=== PATIENT | female | born 1990 | race American Indian/Alaskan Native ===

== ENCOUNTER 2016-07-25 12:47 | Emergency (ER) | payer MEDICAID ==
[2016-07-25 13:19] VITALS: BMI 37.9
[2016-07-25 13:23] VITALS: RESP 18; TEMP 98.4
[2016-07-25] MEDS ORDERED: DiphenhydrAMINE 50 mg/ml Inj IVP STA (13:43)
[2016-07-25] MEDS ORDERED: Sodium Chloride 0.9% 1,000 ML IV STA (13:43)
--- NOTE | 2016-07-25 13:54 | ED PDOC ---
Arrival/HPI - General Chief Complaint: Headache Time Seen by Provider: 07/25/16 13:26 Historian: Patient - History of Present Illness Narrative History of Present Illness (Text): 07/25/16 13:52 25 year old female whose past medical history includes headaches and meningitis presents to the emergency department with headache and transient numbness in the arms. Patient states the numbness has resolved. Denies fever. Patient states the headache feels like her previous symptoms. Time/Duration: 24 hours Symptom Onset: Gradual Symptom Course: Unchanged Modifying Factors (Text): None Past Medical History - Provider Review Nursing Documentation Reviewed: Yes - Past History Past History: No Previous - Infectious Disease Hx of Infectious Diseases: None - Tetanus Immunization Tetanus Immunization: Unknown - Past Medical History Past Medical History: No Previous - Cardiac Hx Cardiac Disorders: No - Pulmonary Hx Respiratory Disorders: No - Neurological Hx Neurological Disorder: Yes Hx Meningitis: Yes (viral) Hx Migraine: Yes - HEENT Hx HEENT Disorder: Yes Other/Comment: s/p adenoidectomy - Renal Hx Renal Disorder: No - Endocrine/Metabolic Hx Endocrine Disorders: No - Hematological/Oncological Hx Blood Disorders: No Hx Blood Transfusions: No Hx Blood Transfusion Reaction: No - Integumentary Hx Dermatological Disorder: No - Musculoskeletal/Rheumatological Hx Musculoskeletal Disorders: No Hx Falls: No - Gastrointestinal Hx Gastrointestinal Disorders: No Hx Bowel Surgery: No - Genitourinary/Gynecological Hx Genitourinary Disorders: No - Psychiatric Hx Psychophysiologic Disorder: No Hx Emotional Abuse: No Hx Physical Abuse: No Hx Substance Use: No - Past Surgical History Past Surgical History: No Previous - Surgical History Hx Section: Yes Hx Tonsillectomy: Yes Other/Comment: nose surgery 2 weeks ago - Anesthesia Hx Anesthesia: Yes Hx Anesthesia Reactions: No Hx Malignant Hyperthermia: No - Suicidal Assessment Feels Threatened In Home Enviroment: No Family/Social History - Physician Review Nursing Documentation Reviewed: Yes Family/Social History: Unknown Family HX Smoking Status: Never Smoked Hx Alcohol Use: No Hx Substance Use: No Hx Substance Use Treatment: No Allergies/Home Meds Allergies/Adverse Reactions: Allergies ibuprofen Allergy (Verified 02/17/16 17:20) ANAPHYLAXIS Review of Systems - Physician Review All systems were reviewed & negative as marked: Yes - Review of Systems Constitutional: absent: Fevers Respiratory: absent: SOB Cardiovascular: absent: Chest Pain Neurological: Headache, Other (Transient numbness in arms that resolved) Physical Exam Vital Signs Reviewed: Yes Vital Signs Temp Pulse Resp BP Pulse Ox 07/25/16 13:22 98.4 F 112 H 18 135/76 100 Temperature: Afebrile Blood Pressure: Normal Pulse: Tachycardic Respiratory Rate: Normal Appearance: Positive for: Well-Appearing, Non-Toxic, Comfortable Pain Distress: None Mental Status: Positive for: Alert and Oriented X 3 - Systems Exam Head: Present: Atraumatic, Normocephalic Pupils: Present: PERRL Extroacular Muscles: Present: EOMI Conjunctiva: Present: Normal Mouth: Present: Moist Mucous Membranes Neck: Present: Normal Range of Motion, Other (Supple). No: Meningeal Signs Respiratory/Chest: Present: Clear to Auscultation, Good Air Exchange. No: Respiratory Distress, Accessory Muscle Use Cardiovascular: Present: Regular Rate and Rhythm, Normal S1, S2. No: Murmurs Abdomen: Present: Normal Bowel Sounds. No: Tenderness, Distention, Peritoneal Signs Back: Present: Normal Inspection Upper Extremity: Present: Normal Inspection. No: Cyanosis, Edema Lower Extremity: Present: Normal Inspection. No: Edema Neurological: Present: GCS=15, CN II-XII Intact, Speech Normal Skin: Present: Warm, Dry, Normal Color. No: Rashes Psychiatric: Present: Alert, Oriented x 3, Normal Insight, Normal Concentration Medical Decision Making ED Course and Treatment: Impression: 25 year old female whose past medical history includes headaches and meningitis presents to the emergency department with headache and transient numbness in the arms. Differential Diagnosis included but are not limited to: suspect atypical migrain with numbness. no meningmus. neck supple Plan: -- Benadryl, Reglan -- Labs -- Reassess and disposition Prior Visits: Notes and results from previous visits were reviewed. Patient last seen in the ED on 04/18/16 for vomiting and discharged home. Progress Notes: 07/25/16 15:17 pt reassesed: states feels better. neck supple. offered lp to exclude mengitis, however pt declines,requesting to be d/c. advise outpt f/ua nd return precautions - Lab Interpretations Lab Results: 07/25/16 14:00 07/25/16 14:00 Lab Results 07/25/16 14:00: Urine Color Yellow, Urine Appearance Slight-cloudy, Urine pH 5.5 , Ur Specific [place] 1.025, Urine Protein 30 H, Urine Glucose (UA) Negative, Urine Ketones Trace H, Urine Blood Small H, Urine Nitrate Negative, Urine Bilirubin Small H, Urine Urobilinogen 2.0 H, Ur Leukocyte Esterase Moderate H, Urine RBC 0 - 2, Urine WBC 25 - 30, Ur Epithelial Cells 10 - 12, Calcium Oxalate Crystal Mod, Urine Bacteria Mod, Urine HCG, Qual Negative 07/25/16 14:00: Sodium 138, Potassium 3.8, Chloride 99, Carbon Dioxide 27, Anion Gap 16, BUN 10, Creatinine 0.4 L, Est GFR ( Amer) > 60, Est GFR ( Non-Af Amer) > 60, Random Glucose 96, Calcium 10.4, Total Bilirubin 0.7, AST 41 H, ALT 45, Alkaline Phosphatase 99, Total Protein 7.7, Albumin 4.0, Globulin 3.7 , Albumin/Globulin Ratio 1.1 07/25/16 14:00: PT 11.4, INR 1.06, APTT 30.3 07/25/16 14:00: WBC 5.6 D, RBC 4.92, Hgb 11.7 L, Hct 35.6 L, MCV 72.4 L, MCH 23.8 L, MCHC 32.9, RDW 12.5, Plt Count 250, MPV 10.1, Gran % 61.3, Lymph % (Auto ) 25.7, [place] % (Auto) 12.1 H, Eos % (Auto) 0.5 L, Baso % (Auto) 0.4, Gran # 3.43 , Lymph # 1.4, [place] # 0.7 H, Eos # 0.0, Baso # 0.02 - Medication Orders Current Medication Orders: Ceftriaxone Sodium (Rocephin 1 Gram Ivpb) 1 gm in 100 mls @ 200 mls/hr IVPB STAT STA PRN Reason: Protocol Stop: 07/25/16 15:31 Discontinued Medications Diphenhydramine HCl (Benadryl) 25 mg IVP STAT STA Stop: 07/25/16 13:44 Last Admin: 07/25/16 14:25 Dose: 25 mg Sodium Chloride (Sodium Chloride 0.9%) 1,000 mls @ 999 mls/hr IV .Q1H1M STA Stop: 06/19/17 14:43 Last Admin: 07/25/16 14:26 Dose: 999 mls/hr Metoclopramide HCl (Reglan) 10 mg IVP STAT STA Stop: 07/25/16 13:44 Last Admin: 07/25/16 14:26 Dose: 10 mg - Oksana Statement The provider has reviewed the documentation as recorded by the Oksana Richardson Provider Scribe Attestation: All medical record entries made by the Oksana were at my direction and personally dictated by me. I have reviewed the chart and agree that the record accurately reflects my personal performance of the history, physical exam, medical decision making, and the department course for this patient. I have also personally directed, reviewed, and agree with the discharge instructions and disposition. Disposition/Present on Arrival - Present on Arrival Any Indicators Present on Arrival: No History of DVT/PE: No History of Uncontrolled Diabetes: No Urinary Catheter: No History of Decub. Ulcer: No History Surgical Site Infection Following: None - Disposition Have Diagnosis and Disposition been Completed?: Yes Diagnosis: Headache Disposition: HOME/ ROUTINE Disposition Time: 15:18 Condition: STABLE Discharge Instructions (ExitCare): Acute Headache (ED) Additional Instructions: please follow up with your doctor/specialist. return to er with worsening symptoms or concenrs Prescriptions: Acetaminophen/Butalbital/Caf [Fioricet] 1 tab PO Q8 PRN #20 PRN Reason: Headache
[2016-07-25 14:21] LABS: PH,URINE 5.5 (4.7-8.0); URINE BILIRUBIN SMALL (NEGATIVE); URINE BLOOD SMALL (NEGATIVE); URINE GLUCOSE (UA) NEGATIVE (NEGATIVE); URINE KETONE TRACE mg/dL (NEGATIVE); URINE LEUKOCYTE ESTERASE MODERATE Leu/uL (NEGATIVE); URINE PROTEIN 30 mg/dL (<30 mg/dL)
[2016-07-25 14:22] LABS: URINE APPEARANCE SLIGHT-CLOUDY (CLEAR); URINE COLOR YELLOW (YELLOW)
[2016-07-25 14:35] LABS: URINE RBC 0 - 2 /hpf (0-2); URINE WBC 25 - 30 /hpf (0-6)
[2016-07-25 14:37] LABS: URINE CALCIUM OXALATE CRYSTALS MOD /hpf
[2016-07-25 14:38] LABS: URINE BACTERIA MOD (NEG)
[2016-07-25 14:46] LABS: ADD MANUAL DIFF? NO
[2016-07-25 14:50] LABS: BASO # 0.02 K/mm3 (0.0-2.0); BASO % 0.4 % (0.0-3.0); EOS % 0.5 % (1.5-5.0); GRAN # 3.43 (1.4-6.5); GRAN % 61.3 % (50.0-68.0); HEMATOCRIT 35.6 % (36.0-48.0); LYMPH # 1.4 (1.2-3.4); LYMPH % 25.7 % (22.0-35.0); MEAN CELL VOLUME 72.4 fL (80.0-105.0); MEAN CORPUSCULAR HEMOGLOBIN 23.8 pg (25.0-35.0); MEAN CORPUSCULAR HGB CONC 32.9 g/dl (31.0-37.0); MEAN PLATELET VOLUME 10.1 fl (7.0-11.0); MONO # 0.7 (0.1-0.6); MONO % 12.1 % (1.0-6.0); PLATELET COUNT 250 10^3/uL (120.0-450.0); RED CELL DISTRIBUTION WIDTH 12.5 % (11.5-14.5); WHITE BLOOD COUNT 5.6 10^3/ul (4.5-11.0)
[2016-07-25 15:00] LABS: ALB/GLOB RATIO 1.1 (1.1-1.8); ALKALINE PHOSPHATASE 99 U/L (38-133); ALT/SGPT 45 U/L (7-56); AST/SGOT 41 U/L (15-39); BILIRUBIN,TOTAL 0.7 mg/dL (0.2-1.3); BLOOD UREA NITROGEN 10 mg/dL (7-21); CALCIUM 10.4 mg/dL (8.4-10.5); CARBON DIOXIDE 27 mmol/L (21-33); CHLORIDE 99 mmol/L (98-107); GFR AFRICAN-AMERICAN > 60; GLUCOSE,RANDOM 96 mg/dL (70-110); INR 1.06 (0.93-1.08); PARTIAL THROMBOPLASTIN TIME 30.3 Seconds (23.7-30.8); POTASSIUM 3.8 mmol/L (3.6-5.0); SODIUM 138 mmol/L (132-148); TOTAL PROTEIN 7.7 g/dL (5.8-8.3)
[2016-07-25] MEDS ORDERED: cefTRIAXone 1 gm 1 GM/100 ML BAG IVPB STA (15:02)
[2016-07-25 15:29] VITALS: BP 134/80; PULSE 89; O2SAT 98
== END 2016-07-25 15:53 | disposition home or self-care (01) ==
LOC: ED 12:47
DX: R51 Headache (principal); G03.9 Meningitis, unspecified
CPT/HCPCS: 80053; 81001; 84703; 85025; 85610; 85730; 96365; 96375; 99285; J0696; J1200; J2765; J7040

== ENCOUNTER 2016-11-21 08:56 | Inpatient (IN) | payer MEDICAID ==
[2016-11-21] MEDS ORDERED: Sodium Chloride 0.9% 1,000 ML IV STA (09:44)
[2016-11-21] MEDS ORDERED: DiphenhydrAMINE 50 mg/ml Inj IVP STA (09:44)
--- NOTE | 2016-11-21 09:45 | ED PDOC ---
Arrival/HPI - General Chief Complaint: Headache Time Seen by Provider: 11/21/16 09:16 Historian: Patient - History of Present Illness Narrative History of Present Illness (Text): 11/21/16 09:30 Niurka Quach is a 26 year old female, whose past medical history includes hyperthyroidism and meningitis, who presents to the emergency department complaining of headache, neck pain, and subjective fever. She notes taking three Tylenol's last night, but there was no significant relief. Additionally, patient complains of light sensitivity. Sx are similar to prior episodes of viral meningitis. PMD: Dr. Scruggs Time/Duration: 24 hours Symptom Onset: Gradual Symptom Course: Unchanged Quality: Other (stiffness) Associated Symptoms (Text): headache, mild cough, fever, neck and back stiffness Past Medical History - Provider Review Nursing Documentation Reviewed: Yes - Past History Past History: No Previous - Infectious Disease Hx of Infectious Diseases: None - Tetanus Immunization Tetanus Immunization: Unknown - Past Medical History Past Medical History: No Previous - Cardiac Hx Cardiac Disorders: No - Pulmonary Hx Respiratory Disorders: No - Neurological Hx Neurological Disorder: Yes Hx Meningitis: Yes (viral) Hx Migraine: Yes - HEENT Hx HEENT Disorder: Yes Other/Comment: s/p adenoidectomy - Renal Hx Renal Disorder: No - Endocrine/Metabolic Hx Endocrine Disorders: No Other/Comment: hyperactive thyroid ? - Hematological/Oncological Hx Blood Disorders: No Hx Blood Transfusions: No Hx Blood Transfusion Reaction: No - Integumentary Hx Dermatological Disorder: No - Musculoskeletal/Rheumatological Hx Musculoskeletal Disorders: No Hx Falls: No - Gastrointestinal Hx Gastrointestinal Disorders: No Hx Bowel Surgery: No - Genitourinary/Gynecological Hx Genitourinary Disorders: No - Psychiatric Hx Psychophysiologic Disorder: No Hx Emotional Abuse: No Hx Physical Abuse: No Hx Substance Use: No - Past Surgical History Past Surgical History: No Previous - Surgical History Hx Section: Yes (x2) Hx Tonsillectomy: Yes Other/Comment: nose surgery 2 weeks ago - Anesthesia Hx Anesthesia: Yes Hx Anesthesia Reactions: No Hx Malignant Hyperthermia: No - Suicidal Assessment Feels Threatened In Home Enviroment: No Family/Social History - Physician Review Nursing Documentation Reviewed: Yes Family/Social History: Other (Non-contributory ) Smoking Status: Never Smoked Hx Alcohol Use: No Hx Substance Use: No Hx Substance Use Treatment: No Allergies/Home Meds Allergies/Adverse Reactions: Allergies ibuprofen Allergy (Verified 11/21/16 16:25) ANAPHYLAXIS Home Medications: Home Meds Medication Instructions Recorded Confirmed Unobtainable 11/21/16 11/21/16 Review of Systems - Review of Systems Constitutional: Fevers Eyes: absent: Vision Changes Respiratory: Cough (mild). absent: SOB Cardiovascular: absent: Chest Pain Gastrointestinal: absent: Abdominal Pain, Diarrhea, Nausea, Vomiting Genitourinary Female: absent: Dysuria Musculoskeletal: Back Pain (stiffness), Neck Pain (stiffness) Neurological: Headache. absent: Dizziness, Focal Weakness Physical Exam Vital Signs Reviewed: Yes Vital Signs Temp Pulse Resp BP Pulse Ox 11/21/16 16:00 98.5 F 100 H 17 112/70 100 11/21/16 14:00 98.6 F 100 H 18 110/80 100 11/21/16 12:00 98.5 F 104 H 18 109/50 L 100 11/21/16 10:30 99.9 F H 92 H 16 112/63 98 11/21/16 09:20 98.5 F 102 H 18 116/75 100 Temperature: Afebrile Blood Pressure: Normal Pulse: Tachycardic Respiratory Rate: Normal Appearance: Positive for: Well-Appearing, Non-Toxic, Comfortable Pain Distress: None Mental Status: Positive for: Alert and Oriented X 3 - Systems Exam Head: Present: Atraumatic, Normocephalic Pupils: Present: PERRL Extroacular Muscles: Present: EOMI Conjunctiva: Present: Normal Mouth: Present: Moist Mucous Membranes Neck: Present: Normal Range of Motion, Other (neck is supple and has NROM. Patient reports pain with motion) Respiratory/Chest: Present: Clear to Auscultation, Good Air Exchange. No: Respiratory Distress, Accessory Muscle Use Cardiovascular: Present: Regular Rate and Rhythm, Normal S1, S2. No: Murmurs Lower Extremity: Present: Normal Inspection, Normal ROM. No: Edema, Tenderness , Swelling Neurological: Present: GCS=15, CN II-XII Intact, Speech Normal Skin: Present: Warm, Dry, Normal Color. No: Rashes Medical Decision Making - Lab Interpretations Lab Results: 11/21/16 10:24 11/21/16 10:24 Lab Results 11/21/16 13:10: CSF Glucose 50, CSF Total Protein 57.0 11/21/16 13:10: Fluid Type Spinal fluid, CSF Volume 2 H, CSF Appearance Clear/ colorless, CSF WBC 253.0 H, CSF RBC 6.0 H, CSF Total Cell Counted 100 H, CSF Neutrophils 15 H, CSF Lymphocytes 82.0 H, CSF Monos/Macrophages 0, CSF Comment TEST NOT PERFORMED 11/21/16 10:24: Sodium 140, Chloride 106, Potassium 4.1, Carbon Dioxide 24, Anion Gap 14, BUN 12, Creatinine 0.4 L, Est GFR ( Amer) > 60, Est GFR ( Non-Af Amer) > 60, Random Glucose 101, Calcium 9.5, Total Bilirubin 0.6, AST 25 , ALT 36, Alkaline Phosphatase 117, Total Protein 7.3, Albumin 4.1, Globulin 3.2 , Albumin/Globulin Ratio 1.3 11/21/16 10:24: Urine Color Yellow, Urine Appearance Sl cloudy, Urine pH 7.0, Ur Specific [place] 1.015, Urine Protein Negative, Urine Glucose (UA) Negative, Urine Ketones Negative, Urine Blood Trace-intact H, Urine Nitrate Negative, Urine Bilirubin Negative, Urine Urobilinogen 0.2, Ur Leukocyte Esterase Large H , Urine RBC 0 - 2, Urine WBC 15 - 20, Ur Epithelial Cells 6 - 8, Urine Bacteria Few, Urine Other Trichomonas, Urine HCG, Qual Negative 11/21/16 10:24: WBC 7.6 D, RBC 4.99, Hgb 12.1, Hct 37.3, MCV 74.7 L, MCH 24.2 L , MCHC 32.4, RDW 12.6, Plt Count 249, MPV 9.1, Gran % 57.7, Lymph % (Auto) 30.8 , [place] % (Auto) 6.8 H, Eos % (Auto) 4.3, Baso % (Auto) 0.4, Gran # 4.38, Lymph # 2.3, [place] # 0.5, Eos # 0.3, Baso # 0.03 11/21/16 10:24: pO2 39, VBG pH 7.34, VBG pCO2 51.0, VBG HCO3 27.5, VBG Total CO2 29.1 H, VBG O2 Sat (Calc) 80.0 H, VBG Base Excess 0.9, VBG Potassium 4.0, Sodium 137.0, Chloride 106.0, Glucose 102, Lactate 1.0, FiO2 21.0, Venous Blood Potassium 4.0 I have reviewed the lab results: Yes - RAD Interpretation Radiology Orders: 11/21/16 09:43 HEAD W/O CONTRAST [CT] Stat - Medication Orders Current Medication Orders: Acetaminophen (Tylenol 325mg Tab) 650 mg PO Q6H PRN PRN Reason: Fever >100.4 F Acyclovir 330 mg/ Sodium (Chloride) 100 mls @ 100 mls/hr IV Q8 MARLON PRN Reason: Protocol Sodium Chloride (Sodium Chloride 0.9%) 1,000 mls @ 100 mls/hr IV .Q10H MARLON Last Admin: 11/21/16 15:10 Dose: 100 mls/hr eMAR Start Stop Document 11/21/16 15:10 AB (Rec: 11/21/16 15:10 [id number]) Intravenous Solution Start Date 11/21/16 Start Time 15:10 End Date 11/21/16 Ceftriaxone Sodium (Rocephin 1 Gram Ivpb) 1 gm in 100 mls @ 100 mls/hr IVPB DAILY MARLON PRN Reason: Protocol Methimazole (Tapazole) 20 mg PO BID [facility] Last Admin: 11/21/16 17:39 Dose: 20 mg Metronidazole (Flagyl) 500 mg PO Q12H MARLON PRN Reason: Protocol Pantoprazole Sodium (Protonix Inj) 40 mg IVP DAILY [facility] Last Admin: 11/21/16 15:09 Dose: 40 mg IVP Administration Document 11/21/16 15:09 AB (Rec: 11/21/16 15:10 [id number]) Charges for Administration # of IVP Administrations 1 Discontinued Medications Diphenhydramine HCl (Benadryl) 25 mg IVP STAT STA Stop: 11/21/16 09:45 Last Admin: 11/21/16 10:00 Dose: 25 mg IVP Administration Document 11/21/16 10:00 REBEKA (Rec: 11/21/16 10:47 REBEKA [id number]) Charges for Administration # of IVP Administrations 1 Sodium Chloride (Sodium Chloride 0.9%) 1,000 mls @ 999 mls/hr IV .Q1H1M STA Stop: 11/21/16 10:44 Last Admin: 11/21/16 10:00 Dose: 999 mls/hr eMAR Start Stop Document 11/21/16 10:00 REBEKA (Rec: 11/21/16 10:48 REBEKA [id number]) Intravenous Solution Start Date 11/21/16 Start Time 10:00 End Date 11/21/16 End time 11:00 Total Infusion Time 60 Ceftriaxone Sodium (Rocephin 2 Gm Ivpb) 2 gm in 100 mls @ 100 mls/hr IVPB STAT STA PRN Reason: Protocol Stop: 11/21/16 10:48 Last Admin: 11/21/16 11:30 Dose: 100 mls/hr eMAR Start Stop Document 11/21/16 11:30 REBEKA (Rec: 11/21/16 11:31 [id number] Intravenous Solution Start Date 11/21/16 Start Time 11:30 End Date 11/21/16 End time 12:30 Total Infusion Time 60 Vancomycin HCl 1.5 gm/ Sodium (Chloride) 250 mls @ 167 mls/hr IVPB ONCE ONE Stop: 11/21/16 11:29 Last Admin: 11/21/16 14:54 Dose: 167 mls/hr eMAR Start Stop Document 11/21/16 14:54 AB (Rec: 11/21/16 14:56 AB [id number]) Intravenous Solution Start Date 11/21/16 Start Time 13:00 End Date 11/21/16 Acyclovir 500 mg/ Sodium (Chloride) 100 mls @ 100 mls/hr IV STAT STA PRN Reason: Protocol Stop: 11/21/16 10:55 Last Admin: 11/21/16 10:28 Dose: 100 mls/hr eMAR Start Stop Document 11/21/16 10:28 NH (Rec: 11/21/16 10:29 NH [id number]) Intravenous Solution Start Date 11/21/16 Start Time 10:29 End Date 11/21/16 End time 11:29 Total Infusion Time 60 Lidocaine HCl (Lidocaine 1% (20ml)) 20 ml IJ STAT STA Stop: 11/21/16 10:29 Metoclopramide HCl (Reglan) 10 mg IVP STAT STA Stop: 11/21/16 09:45 Last Admin: 11/21/16 10:02 Dose: 10 mg IVP Administration Document 11/21/16 10:02 REBEKA (Rec: 11/21/16 10:47 REBEKA [email or web address]) Charges for Administration # of IVP Administrations 1 Metronidazole (Flagyl) 500 mg PO STAT STA PRN Reason: Protocol Stop: 11/21/16 13:58 Last Admin: 11/21/16 15:10 Dose: 500 mg - Scribe Statement The provider has reviewed the documentation as recorded by the Hienibe Yelena Abebe Provider Scribe Attestation: All medical record entries made by the Scribe were at my direction and personally dictated by me. I have reviewed the chart and agree that the record accurately reflects my personal performance of the history, physical exam, medical decision making, and the department course for this patient. I have also personally directed, reviewed, and agree with the discharge instructions and disposition. Disposition/Present on Arrival - Present on Arrival Any Indicators Present on Arrival: No History of DVT/PE: No History of Uncontrolled Diabetes: No Urinary Catheter: No History of Decub. Ulcer: No History Surgical Site Infection Following: None - Disposition Have Diagnosis and Disposition been Completed?: Yes Diagnosis: Viral meningitis Disposition: HOSPITALIZED Disposition Time: 13:59 Condition: STABLE - Lumbar Puncture Procedure LP Procedure: Discussed Procedure W/Pt, Consent Form Completed, Head CT Completed, Use Of Sterile Technique, Injection Site Prepped W/Betadine Position for Procedure: Sitting Injection Location: L 3-4 (pt tolerated procedure well without immediate complication)
[2016-11-21] MEDS ORDERED: cefTRIAXone 2 GM IN NS 2 GM/100 ML BAG IVPB STA (09:49)
[2016-11-21] MEDS ORDERED: Vancomycin 500 mg Inj IVPB STA (09:49)
[2016-11-21] MEDS ORDERED: Acyclovir 500 MG in Sodium Chloride 0.9% 100 ML IV STA (09:56)
[2016-11-21] MEDS ORDERED: Lidocaine 1% Inj (20ml) IJ STA (10:28)
[2016-11-21 10:30] LABS: VENOUS BLOOD GAS BASE EXCESS 0.9 mmol/L (0.0-2.0); VENOUS BLOOD PH 7.34 (7.32-7.43)
[2016-11-21 10:31] LABS: URINE BILIRUBIN NEGATIVE (NEGATIVE); URINE BLOOD TRACE-INTACT (NEGATIVE); URINE GLUCOSE (UA) NEGATIVE (NEGATIVE); URINE KETONE NEGATIVE (NEGATIVE); URINE LEUKOCYTE ESTERASE LARGE Leu/uL (NEGATIVE); URINE PROTEIN NEGATIVE mg/dL (<30 mg/dL); URINE UROBILINOGEN 0.2 E.U./dL (<1 E.U./dL)
[2016-11-21 10:32] LABS: BASO # 0.03 K/mm3 (0.0-2.0); BASO % 0.4 % (0.0-3.0); EOS # 0.3 (0.0-0.7); EOS % 4.3 % (1.5-5.0); GRAN # 4.38 (1.4-6.5); GRAN % 57.7 % (50.0-68.0); HEMATOCRIT 37.3 % (36.0-48.0); LYMPH # 2.3 (1.2-3.4); LYMPH % 30.8 % (22.0-35.0); MEAN CELL VOLUME 74.7 fl (80.0-105.0); MEAN CORPUSCULAR HEMOGLOBIN 24.2 pg (25.0-35.0); MEAN CORPUSCULAR HGB CONC 32.4 g/dl (31.0-37.0); MEAN PLATELET VOLUME 9.1 fl (7.0-11.0); MONO # 0.5 (0.1-0.6); MONO % 6.8 % (1.0-6.0); RED CELL DISTRIBUTION WIDTH 12.6 % (11.5-14.5); URINE COLOR YELLOW (YELLOW); WHITE BLOOD COUNT 7.6 10^3/ul (4.5-11.0)
[2016-11-21 10:37] LABS: URINE APPEARANCE SL CLOUDY (CLEAR)
[2016-11-21 10:39] LABS: URINE BACTERIA FEW (NEG); URINE RBC 0 - 2 /hpf (0-2); URINE WBC 15 - 20 /hpf (0-6)
[2016-11-21 10:40] LABS: ALB/GLOB RATIO 1.3 (1.1-1.8); ALKALINE PHOSPHATASE 117 U/L (38-126); ALT/SGPT 36 U/L (7-56); AST/SGOT 25 U/L (14-36); BILIRUBIN,TOTAL 0.6 mg/dL (0.2-1.3); BLOOD UREA NITROGEN 12 mg/dL (7-21); CALCIUM 9.5 mg/dL (8.4-10.5); CARBON DIOXIDE 24 mmol/L (21-33); CHLORIDE 106 mmol/L (98-107); GFR AFRICAN-AMERICAN > 60; GLUCOSE,RANDOM 101 mg/dL (70-110); POTASSIUM 4.1 mmol/L (3.6-5.0); SODIUM 140 mmol/L (132-148); TOTAL PROTEIN 7.3 g/dL (5.8-8.3)
--- NOTE | 2016-11-21 12:23 | CT ---
PROCEDURE: CT HEAD WITHOUT CONTRAST. HISTORY: headache COMPARISON: 02/17/2016 TECHNIQUE: Axial computed tomography images were obtained through the head/brain without intravenous contrast. Radiation dose: Total exam DLP = 747.90 mGy-cm. This CT exam was performed using one or more of the following dose reduction techniques: Automated exposure control, adjustment of the mA and/or kV according to patient size, and/or use of iterative reconstruction technique. FINDINGS: HEMORRHAGE: No intracranial hemorrhage. BRAIN: No mass effect or edema. No atrophy or chronic microvascular ischemic changes. VENTRICLES: Unremarkable. No hydrocephalus. CALVARIUM: Unremarkable. PARANASAL SINUSES: Mild chronic pansinusitis MASTOID AIR CELLS: Unremarkable as visualized. No inflammatory changes. OTHER FINDINGS: None. IMPRESSION: No intracranial mass, hemorrhage or evidence of acute infarct. Mild chronic pansinusitis.
[2016-11-21 13:13] LABS: FLUID TYPE SPINAL FLUID
[2016-11-21 14:00] LABS: CSF NEUTROPHIL 15 % (0-0); CSF TOTAL COUNT 100 (0-0)
--- NOTE | 2016-11-21 14:43 | CP.PCM.HP ---
<Kaur Pike - Last Filed: 11/21/16 15:22> History of Present Illness - History of Present Illness History of Present Illness: Patient is a 26 year old female with past medical history of aspetic meningitis and hyperthyroidism presents to the ED for headache and neck stiffness that started last night. Also reports having subjective fevers, mild cough and photophobia. Patient states that she took 3 tylenol's with no relief. Also states that she tried eating food, however symptoms did not resolve. Patient was admitted in February 2016 for aseptic meningitis and was discharged on Acyclovir. Reports that she finished the course of antivirals but never followed up with a Neurologist due to insurance issues. Currently patient reports headaches have improved. Denies fevers, chills, photophobia, changes in vision, nausea, vomiting, cp, palpitations, sob, abdominal pain, urinary symptoms, changes in bowel habits. ED Course: Acyclovir 500mg x 1, Rocephin 2gm x 1, Vanco 1.5gm x 1, Flagyl 500mg PO, Reglan 10mg, Benadryl PMD: Dr Tanja Scruggs Allergies: Ibuprofen Medical History: Hyperthyroidism, Meningitis Medications: Methimazole 10mg 2 tabs BID Surgical Hx: C/S x 2, Adenoidectomy Social Hx: Denies alcohol, tobacco, drug use Family Hx: Grandmother - Heart disease Present on Admission - Present on Admission Any Indicators Present on Admission: No Review of Systems - Constitutional Constitutional: Anorexia, Headache. absent: Chills, Fever - EENT Eyes: absent: Blurred Vision, Change in Vision, Photophobia Ears: absent: Dizziness - Cardiovascular Cardiovascular: absent: Chest Pain, Dyspnea, Lightheadedness - Respiratory Respiratory: absent: Cough, Dyspnea, Dyspnea on Exertion, Wheezing - Gastrointestinal Gastrointestinal: absent: Abdominal Pain, Bloating, Constipation, Diarrhea, Nausea, Vomiting - Genitourinary Genitourinary: absent: Dysuria - Musculoskeletal Musculoskeletal: absent: Back Pain, Numbness, Stiffness, Tingling - Neurological Neurological: Headaches. absent: Confusion, Dizziness - Psychiatric Psychiatric: absent: Anxiety, Depression Past Patient History - Infectious Disease Hx of Infectious Diseases: None - Tetanus Immunizations Tetanus Immunization: Unknown - Past Social History Smoking Status: Never Smoked - CARDIAC Hx Cardiac Disorders: No - PULMONARY Hx Respiratory Disorders: No - NEUROLOGICAL Hx Neurological Disorder: Yes Hx Meningitis: Yes (viral) Hx Migraine: Yes - HEENT Hx HEENT Problems: Yes Other/Comment: s/p adenoidectomy - RENAL Hx Chronic Kidney Disease: No - ENDOCRINE/METABOLIC Hx Endocrine Disorders: No Other/Comment: hyperactive thyroid ? - HEMATOLOGICAL/ONCOLOGICAL Hx Blood Disorders: No Hx Blood Transfusions: No Hx Blood Transfusion Reaction: No - INTEGUMENTARY Hx Dermatological Problems: No - MUSCULOSKELETAL/RHEUMATOLOGICAL Hx Musculoskeletal Disorders: No Hx Falls: No - GASTROINTESTINAL Hx Gastrointestinal Disorders: No Hx Bowel Surgery: No - GENITOURINARY/GYNECOLOGICAL Hx Genitourinary Disorders: No - PSYCHIATRIC Hx Psychophysiologic Disorder: No Hx Emotional Abuse: No Hx Physical Abuse: No Hx Substance Use: No - SURGICAL HISTORY Hx Section: Yes (x2) Hx Tonsillectomy: Yes Other/Comment: nose surgery 2 weeks ago - ANESTHESIA Hx Anesthesia: Yes Hx Anesthesia Reactions: No Hx Malignant Hyperthermia: No Meds Allergies/Adverse Reactions: Allergies Allergy/AdvReac Type Severity Reaction Status Date / Time ibuprofen Allergy ANAPHYLAXIS Verified 11/21/16 16:25 Physical Exam - Constitutional Appears: Well, No Acute Distress - Head Exam Head Exam: ATRAUMATIC, NORMAL INSPECTION - Eye Exam Eye Exam: EOMI, Normal appearance Pupil Exam: PERRL - ENT Exam ENT Exam: Mucous Membranes Moist - Neck Exam Neck exam: Positive for: Full Rom Additional comments: No Brudzinski's sign, No Kernig's sign - Respiratory Exam Respiratory Exam: Clear to Auscultation Bilateral, NORMAL BREATHING PATTERN. absent: Rales, Rhonchi, Wheezes - Cardiovascular Exam Cardiovascular Exam: REGULAR RHYTHM, +S1, +S2 - GI/Abdominal Exam GI & Abdominal Exam: Normal Bowel Sounds, Soft. absent: Guarding, Rebound, Rigid, Tenderness - Extremities Exam Extremities exam: Positive for: full ROM, normal inspection. Negative for: calf tenderness - Back Exam Back exam: NORMAL INSPECTION - Neurological Exam Neurological exam: Alert, Normal Gait, Oriented x3 - Psychiatric Exam Psychiatric exam: Normal Affect, Normal Mood - Skin Skin Exam: Dry, Normal Color, Warm Results - Vital Signs Recent Vital Signs: Last Vital Signs Temp 99.9 F H 11/21/16 10:30 Pulse 92 H 11/21/16 10:30 Resp 16 11/21/16 10:30 BP 112/63 11/21/16 10:30 Pulse Ox 98 11/21/16 10:30 - Labs Result Diagrams: 11/21/16 10:24 11/21/16 10:24 Assessment & Plan - Assessment and Plan (Free Text) Assessment: 26 year old female with past medical history of aseptic meningitis and hyperthyroidism presents with headache and neck stiffness since last night. Plan: 1. Recurrent Aseptic Meningitis - Currently Afebrile - Droplet precautions - CT head showing mild chronic pansinusitis - S/P lumbar puncture (clear/colorless, WBC 253, Lymphocytes 82, Glucose 50) - F/U CSF analysis, blood cx - Headache resolved upon examination, no meningeal signs - Acyclovir 330mg Q8H IV - Tylenol prn headache - ID on consult, f/u recommendations - Neurology on consult, f/u recommendations 2. Urinary Tract Infection - UA showing large leuk esterase, +WBCs - Continue Rocephin 1 gm daily - F/U urine cultures 3. Hyperthyroidism - Continue Methimazole 20mg BID 4. Metrorrhagia - LMP 06/2016 - Urine bhcg negative - Not currently using oral/barrier contraception - Urine positive for trichomonas - Continue Flagyl 500mg PO Q12 x 7 days GI/DVT ppx - Protonix 40mg IV - SCDs Plan d/w attending, Dr Valencia <Jimmie Valencia - Last Filed: 11/22/16 14:36> Results - Vital Signs Recent Vital Signs: Last Vital Signs Temp 97.5 F L 11/22/16 08:15 Pulse 74 11/22/16 08:15 Resp 20 11/22/16 08:15 BP 126/74 11/22/16 08:15 Pulse Ox 99 11/22/16 08:15 - Labs Result Diagrams: 11/22/16 07:40 11/22/16 07:27 Labs: Laboratory Results - last 24 hr 11/22/16 11/22/16 07:27 07:40 WBC 5.6 D RBC 4.74 Hgb 11.3 L Hct 35.1 L MCV 74.1 L MCH 23.8 L MCHC 32.2 RDW 12.5 Plt Count 230 MPV 9.3 Gran % 39.3 L Lymph % (Auto) 44.2 H Beauregard % (Auto) 9.2 H Eos % (Auto) 6.8 H Baso % (Auto) 0.5 Gran # 2.18 Lymph # 2.5 Beauregard # 0.5 Eos # 0.4 Baso # 0.03 Sodium 141 Potassium 4.1 Chloride 107 Carbon Dioxide 25 Anion Gap 13 BUN 10 Creatinine 0.4 L Est GFR ( Amer) > 60 Est GFR (Non-Af Amer) > 60 Random Glucose 93 Calcium 9.5 Phosphorus 5.7 H Magnesium 1.7 Total Bilirubin 0.6 AST 26 ALT 44 Alkaline Phosphatase 104 Total Protein 6.5 Albumin 3.6 Globulin 2.9 Albumin/Globulin Ratio 1.3 Attending/Attestation - Attestation I have personally seen and examined this patient.: Yes I have fully participated in the care of the patient.: Yes I have reviewed all pertinent clinical information: Yes Notes (Text): 11/22/16 14:34 attending note; Patient seen and examined in ER. Patient is a 26-year-old female with a past medical history of recurrent aseptic meningitis is admitted with headache. Status post LP in the ER. started on IV acyclovir. Currently feeling better. ID/neuro evaluation requested. Follow-up culture results. Upon discharge the patient will follow-up with PMD dr. Scruggs. 11/22/16 14:36
[2016-11-21] MEDS: Sodium Chloride 0.9% 1,000 ML IV SCH (15:10)
[2016-11-21 19:08] VITALS: BMI 36.1
[2016-11-21] MEDS ORDERED: Pneumococcal 23-Valent Vaccine IM ONE (19:09)
[2016-11-21] MEDS ORDERED: Influenza Vaccine 60 mcg/0.5 mL SYR (4YR UP) IM ONE (19:09)
[2016-11-21] MEDS: SODIUM CHLORIDE 0.9% IV SCH (22:14)
[2016-11-21] MEDS: ACYCLOVIR IV SCH (22:14)
[2016-11-22] MEDS: Sodium Chloride 0.9% 1,000 ML IV SCH (05:58)
[2016-11-22] MEDS: ACYCLOVIR IV SCH ×3 (05:59→22:30)
[2016-11-22] MEDS: SODIUM CHLORIDE 0.9% IV SCH ×3 (05:59→22:30)
[2016-11-22 07:45] LABS: ALB/GLOB RATIO 1.3 (1.1-1.8); ALKALINE PHOSPHATASE 104 U/L (38-126); ALT/SGPT 44 U/L (7-56); AST/SGOT 26 U/L (14-36); BILIRUBIN,TOTAL 0.6 mg/dL (0.2-1.3); BLOOD UREA NITROGEN 10 mg/dL (7-21); CALCIUM 9.5 mg/dL (8.4-10.5); CARBON DIOXIDE 25 mmol/L (21-33); CHLORIDE 107 mmol/L (95-110); GFR AFRICAN-AMERICAN > 60; GLUCOSE,RANDOM 93 mg/dL (70-110); MAGNESIUM 1.7 mg/dL (1.7-2.2); PHOSPHOROUS 5.7 mg/dL (2.5-4.5); POTASSIUM 4.1 mmol/L (3.6-5.0); SODIUM 141 mmol/L (132-148); TOTAL PROTEIN 6.5 g/dL (5.8-8.3)
[2016-11-22 08:32] LABS: BASO # 0.03 K/mm3 (0.0-2.0); BASO % 0.5 % (0.0-3.0); EOS # 0.4 (0.0-0.7); EOS % 6.8 % (1.5-5.0); GRAN # 2.18 (1.4-6.5); GRAN % 39.3 % (50.0-68.0); HEMATOCRIT 35.1 % (36.0-48.0); LYMPH # 2.5 (1.2-3.4); LYMPH % 44.2 % (22.0-35.0); MEAN CELL VOLUME 74.1 fl (80.0-105.0); MEAN CORPUSCULAR HEMOGLOBIN 23.8 pg (25.0-35.0); MEAN CORPUSCULAR HGB CONC 32.2 g/dl (31.0-37.0); MEAN PLATELET VOLUME 9.3 fl (7.0-11.0); MONO # 0.5 (0.1-0.6); MONO % 9.2 % (1.0-6.0); RED CELL DISTRIBUTION WIDTH 12.5 % (11.5-14.5); WHITE BLOOD COUNT 5.6 10^3/ul (4.5-11.0)
[2016-11-22] MEDS: cefTRIAXone 1 gm 1 GM/100 ML BAG IVPB SCH (10:01)
[2016-11-22] MEDS ORDERED: Gadodiamide 287 MG/ML VIAL (20ML) IV ONE (12:35)
--- NOTE | 2016-11-22 13:11 | CON ---
DATE: 11/22/2016 NEUROLOGY CONSULTATION REASON FOR CONSULTATION: Headaches and meningitis. HISTORY OF PRESENT ILLNESS: The patient is a 26-year-old female, who has been asked for evaluation of headache and meningitis. The patient has been complaining of headaches over the last couple of days. She reported having fever and mild cough, was also experiencing photophobia. She apparently took Tylenol with no relief. She was also experiencing some stiffness in the neck and decided to come to the emergency room. She had aseptic meningitis in 2017 in the February 2016 as well. At that time, she was treated with acyclovir. At the moment, she feels better. She no longer has headaches. Denies any other complaints. REVIEW OF SYSTEMS: Denies any chest pain, shortness of breath, abdominal pain, constipation, diarrhea, dysuria, pyuria, cough or sputum production. PAST MEDICAL HISTORY: History of aseptic meningitis. Hypothyroidism. MEDICATIONS AT HOME: Included methimazole. ALLERGIES: IBUPROFEN. SOCIAL HISTORY: She denies smoking, use of alcohol, or illicit drugs. FAMILY HISTORY: Reviewed and noncontributory to the case. PHYSICAL EXAMINATION: GENERAL: The patient is a young person female, lying on the bed in no acute distress. VITAL SIGNS: Blood pressure is 126/74, heart rate is 74 per minute, breathing at the rate of 16 per minute, temperature is 97.5 degrees Fahrenheit. HEENT: Head is normocephalic and atraumatic. NECK: Supple. There are no carotid bruits. LUNGS: Clear. CARDIOVASCULAR: S1 and S2, audible. No murmurs. ABDOMEN: Soft and nontender. Bowel sounds present. NEUROLOGICAL: Mental Status: The patient is awake, alert, oriented to time, place, and person. Speech is fluent. Naming and repetition is normal. Memory and recognition are intact. Cranial Nerve Examination: Pupils are 4 mm bilaterally reactive to light. Visual chambers are full. Extraocular movements are intact. There is no facial asymmetry. Palate is upgoing bilaterally and tongue is midline. Motor Examination: Tone is normal and power is 5/5 bilaterally in all extremities, reflexes +2 and symmetrical. Plantars downgoing bilaterally. Cerebellar Examination: [id number] shows no dysmetria. The gait is deferred at the moment. Negative Kernig's sign. Negative Brudzinski sign. LABORATORY DATA: Reviewed. Shows CT scan of the head, no acute intracranial pathology. WBC is 5.6, hemoglobin 11.3, hematocrit 35.1, and platelets are 230. Sodium is 141, potassium 4.1, chloride 107, carbon dioxide 25, BUN of 10, creatinine of 0.4, glucose of 193. She has lumbar puncture done. CSF shows WBC count of 253, RBCs 6, lymphocytes 82, and neutrophils 15, glucose is 50, and protein is 57. IMPRESSION: Headaches with stiffness in the neck with elevated WBC count with lymphocyte predominance. This is suggestive of viral meningitis. RECOMMENDATIONS: 1. The patient to have MRI of the brain without contrast. 2. The patient is currently on acyclovir and ceftriaxone. Her ceftriaxone is to be continued until her blood cultures are back. 3. The patient to have infectious disease evaluation. 4. The patient may have Tylenol p.r.n. for headaches. 5. Please continue supportive care and other treatment. Thank you for the opportunity to participate in the care of this patient. Reyes Leigh MD
--- NOTE | 2016-11-22 13:59 | MRI ---
PROCEDURE: MRI BRAIN WITH AND WITHOUT CONTRAST HISTORY: meningitis COMPARISON: None. TECHNIQUE: Multiplanar, multisequence MR images of the brain were obtained with and without intravenous contrast enhancement. FINDINGS: HEMORRHAGE: None DWI: No evidence of an acute or early subacute infarction. BRAIN PARENCHYMA: No mass,mass effect or edema. No atrophy or chronic microvascular ischemic changes. ENHANCEMENT: No abnormal intracranial enhancement. VENTRICLES: Unremarkable. No hydrocephalus. CRANIUM: Unremarkable. ORBITS: Grossly unremarkable. PARANASAL SINUSES/MASTOIDS: Clear VASCULAR SYSTEM: Skull base flow voids intact. OTHER FINDINGS: None . IMPRESSION: No acute findings
--- NOTE | 2016-11-22 14:23 | CP.PCM.PN ---
<Kaur Pike - Last Filed: 11/22/16 15:12> Subjective - Date & Time of Evaluation Date of Evaluation: 11/22/16 Time of Evaluation: 14:23 - Subjective Subjective: Hospitalist Service Progress Note: Patient seen and examined at bedside. Per nursing no acute events overnight. Patient is doing well, ambulating and tolerating diet. Offers no complaints at this time. Denies headaches, dizziness, cp, palpitations, sob, abdominal pain, urinary symptoms, changes in bowel habits. Objective - Vital Signs/Intake and Output Vital Signs (last 24 hours): Temp Pulse Resp BP Pulse Ox 97.5 F L 74 20 126/74 99 11/22/16 08:15 11/22/16 08:15 11/22/16 08:15 11/22/16 08:15 11/22/16 08:15 Intake and Output: 11/22/16 11/22/16 06:59 18:59 Intake Total 2780 960 Balance 2780 960 - Medications Medications: Current Medications Acetaminophen (Tylenol 325mg Tab) 650 mg PO Q6H PRN PRN Reason: Fever >100.4 F Last Admin: 11/21/16 20:06 Dose: 650 mg Sodium Chloride (Sodium Chloride 0.9%) 1,000 mls @ 100 mls/hr IV .Q10H [facility] Last Admin: 11/22/16 05:58 Dose: 100 mls/hr Ceftriaxone Sodium (Rocephin 1 Gram Ivpb) 1 gm in 100 mls @ 100 mls/hr IVPB DAILY [facility] PRN Reason: Protocol Last Admin: 11/22/16 10:01 Dose: 100 mls/hr Acyclovir 570 mg/ Sodium (Chloride) 100 mls @ 100 mls/hr IV Q8 [facility] PRN Reason: Protocol Methimazole (Tapazole) 20 mg PO BID [facility] Last Admin: 11/22/16 09:59 Dose: 20 mg Metronidazole (Flagyl) 500 mg PO Q12H [facility] PRN Reason: Protocol Last Admin: 11/22/16 10:01 Dose: 500 mg Pantoprazole Sodium (Protonix Inj) 40 mg IVP DAILY [facility] Last Admin: 11/22/16 10:00 Dose: 40 mg - Labs Labs: 11/22/16 07:40 11/22/16 07:27 - Constitutional Appears: Non-toxic, No Acute Distress - Head Exam Head Exam: ATRAUMATIC, NORMAL INSPECTION - Eye Exam Eye Exam: EOMI, Normal appearance Pupil Exam: NORMAL ACCOMODATION, PERRL - ENT Exam ENT Exam: Mucous Membranes Moist - Neck Exam Neck Exam: Full ROM Additional comments: No Brudzinski's sign, No Kernig's sign - Respiratory Exam Respiratory Exam: Clear to Ausculation Bilateral, NORMAL BREATHING PATTERN. absent: Rales, Rhonchi, Wheezes - Cardiovascular Exam Cardiovascular Exam: REGULAR RHYTHM, +S1, +S2 - GI/Abdominal Exam GI & Abdominal Exam: Soft. absent: Guarding, Rigid, Tenderness - Rectal Exam Rectal Exam: Deferred - Extremities Exam Extremities Exam: Full ROM, Normal Inspection. absent: Calf Tenderness, Tenderness - Back Exam Back Exam: NORMAL INSPECTION - Neurological Exam Neurological Exam: Alert, Awake, Normal Gait, Oriented x3 Neuro motor strength exam: Left Upper Extremity: 5, Right Upper Extremity: 5, Left Lower Extremity: 5, Right Lower Extremity: 5 - Psychiatric Exam Psychiatric exam: Normal Affect, Normal Mood - Skin Skin Exam: Dry, Normal Color, Warm Assessment and Plan - Assessment and Plan (Free Text) Assessment: 26 year old female with past medical history of aseptic meningitis and hyperthyroidism presents with headache and neck stiffness since last night. Plan: 1. Recurrent Aseptic Meningitis - Currently Afebrile, Droplet precautions - Headaches resolved - CT head showing mild chronic pansinusitis - S/P lumbar puncture (clear/colorless, WBC 253, Lymphocytes 82, Glucose 50) - HSV pending - CSF culture showing no growth in 24 hours - Blood cx showing no growth in 24 hours - Acyclovir 570mg Q8H IV - Tylenol prn headache - MRI ordered, f/u results - ID on consult, f/u recommendations - Neurology on consult, f/u recommendations 2. Urinary Tract Infection - UA showing large leuk esterase, +WBCs - Continue Rocephin 1 gm daily - Urine cultures growing gram positive cocci - F/U sensitivities 3. Hyperthyroidism - Continue Methimazole 20mg BID 4. Metrorrhagia - LMP 06/2016 - Urine bhcg negative - Not currently using oral/barrier contraception - Urine positive for trichomonas - Continue Flagyl 500mg PO Q12 x total 7 days GI/DVT ppx - Protonix 40mg PO - SCDs Plan d/w attending, Dr Valencia <Jimmie Valencia - Last Filed: 11/22/16 16:54> Objective - Vital Signs/Intake and Output Vital Signs (last 24 hours): Temp Pulse Resp BP Pulse Ox 98.1 F 92 H 17 114/68 100 11/22/16 16:26 11/22/16 16:26 11/22/16 16:26 11/22/16 16:26 11/22/16 16:26 Intake and Output: 11/22/16 11/22/16 06:59 18:59 Intake Total 2780 960 Balance 2780 960 - Medications Medications: Current Medications Acetaminophen (Tylenol 325mg Tab) 650 mg PO Q6H PRN PRN Reason: Fever >100.4 F Last Admin: 11/21/16 20:06 Dose: 650 mg Sodium Chloride (Sodium Chloride 0.9%) 1,000 mls @ 100 mls/hr IV .Q10H [facility] Last Admin: 11/22/16 05:58 Dose: 100 mls/hr Ceftriaxone Sodium (Rocephin 1 Gram Ivpb) 1 gm in 100 mls @ 100 mls/hr IVPB DAILY [facility] PRN Reason: Protocol Last Admin: 11/22/16 10:01 Dose: 100 mls/hr Acyclovir 570 mg/ Sodium (Chloride) 100 mls @ 100 mls/hr IV Q8 [facility] PRN Reason: Protocol Last Admin: 11/22/16 14:14 Dose: 100 mls/hr Methimazole (Tapazole) 20 mg PO BID [facility] Last Admin: 11/22/16 09:59 Dose: 20 mg Metronidazole (Flagyl) 500 mg PO Q8 [facility] PRN Reason: Protocol Pantoprazole Sodium (Protonix Inj) 40 mg IVP DAILY [facility] Last Admin: 11/22/16 10:00 Dose: 40 mg - Labs Labs: 11/22/16 07:40 11/22/16 07:27 Attending/Attestation - Attestation I have personally seen and examined this patient.: Yes I have fully participated in the care of the patient.: Yes I have reviewed all pertinent clinical information, including history, physical exam and plan: Yes Notes (Text): 11/22/16 16:48 attending note; Patient seen and examined in ER. Patient is a 26-year-old female with a past medical history of recurrent aseptic meningitis is admitted with headache. Status post LP in the ER. started on IV acyclovir. Currently feeling better. Gram stain is negative. Culture and HSV pending. Case discussed with neurology and ID in detail. MRI of the brain is ordered. Trichomonas in urine. continue Flagyl. Follow-up culture results. possible discharge home tomorrow if clinically stable. Upon discharge the patient will follow-up with PMD dr. Scruggs.
--- NOTE | 2016-11-22 18:55 | CP.PCM.CON ---
History of Present Illness - History of Present Illness History of Present Illness: 26 year old female with PMH of aseptic meningitis, hyperthyroidism, S/P C- section, S/P adenoidectomy, obesity with BMI 36 came in to [facility] because of neck stiffness, photophobia and subjective fever and chills for the past 1-2 days. She took Acetaminophen which did not help with her headache. She states that she was [place] admitted in [facility] [place] presentation and was found to have aseptic meningitis and was treated with Acyclovir. She first had aseptic meningitis in 2013 and has had several times since then. She denies insect bites, no recent travel in the past 3 months, denies animal contacts. She also denies cough or rhinorrhea, no sore throat, no body aches, no chest pain, no SOB, no abdominal pain, no diarrhea, no dysuria. Infectious Diseases consult is requested to further evaluate and manage. Review of Systems - Review of Systems All systems: reviewed and no additional remarkable complaints except (as per HPI ) Past Patient History - Infectious Disease Hx of Infectious Diseases: None - Tetanus Immunizations Tetanus Immunization: Unknown - Past Social History Smoking Status: Never Smoked - CARDIAC Hx Cardiac Disorders: No - PULMONARY Hx Respiratory Disorders: No - NEUROLOGICAL Hx Neurological Disorder: Yes Hx Meningitis: Yes (viral) Hx Migraine: Yes - HEENT Hx HEENT Problems: Yes Other/Comment: s/p adenoidectomy - RENAL Hx Chronic Kidney Disease: No - ENDOCRINE/METABOLIC Hx Endocrine Disorders: No Other/Comment: hyperactive thyroid ? - HEMATOLOGICAL/ONCOLOGICAL Hx Blood Disorders: No Hx Blood Transfusions: No Hx Blood Transfusion Reaction: No - INTEGUMENTARY Hx Dermatological Problems: No - MUSCULOSKELETAL/RHEUMATOLOGICAL Hx Musculoskeletal Disorders: No Hx Falls: No - GASTROINTESTINAL Hx Gastrointestinal Disorders: No Hx Bowel Surgery: No - GENITOURINARY/GYNECOLOGICAL Hx Genitourinary Disorders: No - PSYCHIATRIC Hx Psychophysiologic Disorder: No Hx Emotional Abuse: No Hx Physical Abuse: No Hx Substance Use: No - SURGICAL HISTORY Hx Section: Yes (x2) Hx Tonsillectomy: Yes Other/Comment: nose surgery 2 weeks ago - ANESTHESIA Hx Anesthesia: Yes Hx Anesthesia Reactions: No Hx Malignant Hyperthermia: No Meds Allergies/Adverse Reactions: Allergies Allergy/AdvReac Type Severity Reaction Status Date / Time ibuprofen Allergy ANAPHYLAXIS Verified 11/21/16 16:25 - Medications Medications: Current Medications Acetaminophen (Tylenol 325mg Tab) 650 mg PO Q6H PRN PRN Reason: Fever >100.4 F Acyclovir 330 mg/ Sodium (Chloride) 100 mls @ 100 mls/hr IV Q8 [facility] PRN Reason: Protocol Sodium Chloride (Sodium Chloride 0.9%) 1,000 mls @ 100 mls/hr IV .Q10H [facility] Last Admin: 11/21/16 15:10 Dose: 100 mls/hr Ceftriaxone Sodium (Rocephin 1 Gram Ivpb) 1 gm in 100 mls @ 100 mls/hr IVPB DAILY [facility] PRN Reason: Protocol Methimazole (Tapazole) 20 mg PO BID [facility] Last Admin: 11/21/16 17:39 Dose: 20 mg Metronidazole (Flagyl) 500 mg PO Q12H [facility] PRN Reason: Protocol Pantoprazole Sodium (Protonix Inj) 40 mg IVP DAILY [facility] Last Admin: 11/21/16 15:09 Dose: 40 mg Physical Exam - Constitutional Appears: Non-toxic, No Acute Distress - Head Exam Head Exam: NORMAL INSPECTION - ENT Exam ENT Exam: Mucous Membranes Moist - Neck Exam Neck exam: Positive for: Meningismus (mild) - Respiratory Exam Respiratory Exam: Decreased Breath Sounds. absent: Rales - Cardiovascular Exam Cardiovascular Exam: +S1, +S2 - GI/Abdominal Exam GI & Abdominal Exam: Soft. absent: Tenderness Results - Vital Signs Recent Vital Signs: Last Vital Signs Temp 98.5 F 11/21/16 16:00 Pulse 100 H 11/21/16 16:00 Resp 17 11/21/16 16:00 BP 112/70 11/21/16 16:00 Pulse Ox 100 11/21/16 16:00 - Labs Result Diagrams: 11/22/16 07:40 11/22/16 07:27 Assessment & Plan - Assessment and Plan (Free Text) Plan: Assessment Lymphocytic meningitis with sepsis, consider viral meningitis R/O bacterial meningitis R/O UTI Trichomoniasis aseptic meningitis hyperthyroidism S/P S/P adenoidectomy obesity with BMI 36 Plan Started Rocephin and given a dose of IV Vanco, started Acyclovir pending CSF cx , CSF HSV PCR; follow up brain MRI since this may be recurrent meningitis, she may need to be on suppressive therapy after this acute therapy with antivirals and needs Neurology follow up as outpatient continue Flagyl for Trichomoniasis and will advise patient that sexual partner should also be treated will also get HIV test, RPR will monitor clinically
[2016-11-23] MEDS ORDERED: Pantoprazole 40 mg EC Tab PO SCH (06:00)
[2016-11-23] MEDS: SODIUM CHLORIDE 0.9% IV SCH (06:24)
[2016-11-23] MEDS: ACYCLOVIR IV SCH (06:24)
[2016-11-23 07:22] LABS: BASO # 0.03 K/mm3 (0.0-2.0); BASO % 0.5 % (0.0-3.0); EOS # 0.4 (0.0-0.7); EOS % 6.6 % (1.5-5.0); GRAN # 2.78 (1.4-6.5); GRAN % 46.2 % (50.0-68.0); HEMATOCRIT 33.9 % (36.0-48.0); LYMPH # 2.3 (1.2-3.4); LYMPH % 37.9 % (22.0-35.0); MEAN CELL VOLUME 73.7 fl (80.0-105.0); MEAN CORPUSCULAR HEMOGLOBIN 23.5 pg (25.0-35.0); MEAN CORPUSCULAR HGB CONC 31.9 g/dl (31.0-37.0); MEAN PLATELET VOLUME 9.3 fl (7.0-11.0); MONO # 0.5 (0.1-0.6); MONO % 8.8 % (1.0-6.0); RED CELL DISTRIBUTION WIDTH 12.5 % (11.5-14.5)
[2016-11-23 07:44] LABS: ALB/GLOB RATIO 1.2 (1.1-1.8); ALKALINE PHOSPHATASE 98 U/L (38-126); ALT/SGPT 42 U/L (7-56); AST/SGOT 17 U/L (14-36); BILIRUBIN,TOTAL 0.6 mg/dL (0.2-1.3); BLOOD UREA NITROGEN 11 mg/dL (7-21); CALCIUM 9.2 mg/dL (8.4-10.5); CARBON DIOXIDE 26 mmol/L (21-33); CHLORIDE 107 mmol/L (95-110); GFR AFRICAN-AMERICAN > 60; GLUCOSE,RANDOM 96 mg/dL (70-110); MAGNESIUM 1.7 mg/dL (1.7-2.2); PHOSPHOROUS 5.6 mg/dL (2.5-4.5); POTASSIUM 3.8 mmol/L (3.6-5.0); SODIUM 140 mmol/L (132-148); TOTAL PROTEIN 6.5 g/dL (5.8-8.3)
[2016-11-23 07:51] VITALS: RESP 20
[2016-11-23] MEDS: cefTRIAXone 1 gm 1 GM/100 ML BAG IVPB SCH (09:12)
--- NOTE | 2016-11-23 10:05 | CP.PCM.PN ---
Subjective - Date & Time of Evaluation Date of Evaluation: 11/22/16 Time of Evaluation: 22:00 - Subjective Subjective: Patient has very poor veins,needs iv access. Objective - Vital Signs/Intake and Output Vital Signs (last 24 hours): Temp Pulse Resp BP Pulse Ox 97.5 F L 81 20 139/63 99 11/23/16 00:00 11/23/16 00:00 11/23/16 00:00 11/23/16 00:00 11/23/16 00:00 Intake and Output: 11/23/16 11/23/16 06:59 18:59 Intake Total 1480 Balance 1480 - Medications Medications: Current Medications Acetaminophen (Tylenol 325mg Tab) 650 mg PO Q6H PRN PRN Reason: Fever >100.4 F Last Admin: 11/22/16 21:46 Dose: 650 mg Sodium Chloride (Sodium Chloride 0.9%) 1,000 mls @ 100 mls/hr IV .Q10H [facility] Last Admin: 11/22/16 05:58 Dose: 100 mls/hr Ceftriaxone Sodium (Rocephin 1 Gram Ivpb) 1 gm in 100 mls @ 100 mls/hr IVPB DAILY [facility] PRN Reason: Protocol Last Admin: 11/23/16 09:12 Dose: 100 mls/hr Acyclovir 570 mg/ Sodium (Chloride) 100 mls @ 100 mls/hr IV Q8 [facility] PRN Reason: Protocol Last Admin: 11/23/16 06:24 Dose: 100 mls/hr Methimazole (Tapazole) 20 mg PO BID [facility] Last Admin: 11/23/16 09:13 Dose: 20 mg Metronidazole (Flagyl) 500 mg PO Q8 [facility] PRN Reason: Protocol Last Admin: 11/23/16 06:24 Dose: 500 mg Pantoprazole Sodium (Protonix Ec Tab) 40 mg PO 0600 [facility] Last Admin: 11/23/16 06:24 Dose: 40 mg - Labs Labs: 11/23/16 06:30 11/23/16 06:30 - Constitutional Appears: No Acute Distress Assessment and Plan - Assessment and Plan (Free Text) Assessment: Poor venous access Plan: Hep lock inserted in the L hand . # 24 angiocath used.
[2016-11-23] MEDS ORDERED: Bacitracin 500 Units/gm Oint Foilpak UD TOP ONE (11:03)
--- NOTE | 2016-11-23 11:39 | CP.PCM.DIS ---
<Kaur Pike - Last Filed: 11/23/16 14:28> Provider - Provider Date of Admission: 11/21/16 13:59 Attending physician: Jimmie Valencia MD Consults: ID: [place] Neurology: [place] Time Spent in preparation of Discharge (in minutes): 31 Hospital Course - Lab Results Lab Results: Most Recent Lab Values WBC 6.0 10^3/ul (4.5-11.0) 11/23/16 06:30 RBC 4.60 10^6/uL (3.5-6.1) 11/23/16 06:30 Hgb 10.8 g/dL (12.0-16.0) L 11/23/16 06:30 Hct 33.9 % (36.0-48.0) L 11/23/16 06:30 MCV 73.7 fl (80.0-105.0) L 11/23/16 06:30 MCH 23.5 pg (25.0-35.0) L 11/23/16 06:30 MCHC 31.9 g/dl (31.0-37.0) 11/23/16 06:30 RDW 12.5 % (11.5-14.5) 11/23/16 06:30 Plt Count 216 10^3/uL (120.0-450.0) 11/23/16 06:30 MPV 9.3 fl (7.0-11.0) 11/23/16 06:30 Gran % 46.2 % (50.0-68.0) L 11/23/16 06:30 Lymph % (Auto) 37.9 % (22.0-35.0) H 11/23/16 06:30 Collier % (Auto) 8.8 % (1.0-6.0) H 11/23/16 06:30 Eos % (Auto) 6.6 % (1.5-5.0) H 11/23/16 06:30 Baso % (Auto) 0.5 % (0.0-3.0) 11/23/16 06:30 Gran # 2.78 (1.4-6.5) 11/23/16 06:30 Lymph # 2.3 (1.2-3.4) 11/23/16 06:30 Collier # 0.5 (0.1-0.6) 11/23/16 06:30 Eos # 0.4 (0.0-0.7) 11/23/16 06:30 Baso # 0.03 K/mm3 (0.0-2.0) 11/23/16 06:30 pO2 39 mm/Hg (30-55) 11/21/16 10:24 VBG pH 7.34 (7.32-7.43) 11/21/16 10:24 VBG pCO2 51.0 (40-60) 11/21/16 10:24 VBG HCO3 27.5 mmol/l (21-28) 11/21/16 10:24 VBG Total CO2 29.1 mmol.L (22-28) H 11/21/16 10:24 VBG O2 Sat (Calc) 80.0 % (40-65) H 11/21/16 10:24 VBG Base Excess 0.9 mmol/L (0.0-2.0) 11/21/16 10:24 VBG Potassium 4.0 mmol/L (3.6-5.2) 11/21/16 10:24 Sodium 137.0 mmol/L (132-148) 11/21/16 10:24 Chloride 106.0 mmol/L (98-107) 11/21/16 10:24 Glucose 102 mg/dl (65-105) 11/21/16 10:24 Lactate 1.0 mmol/L (0.7-2.1) 11/21/16 10:24 FiO2 21.0 % 11/21/16 10:24 Sodium 140 mmol/L (132-148) 11/23/16 06:30 Potassium 3.8 mmol/L (3.6-5.0) 11/23/16 06:30 Chloride 107 mmol/L (95-110) 11/23/16 06:30 Carbon Dioxide 26 mmol/L (21-33) 11/23/16 06:30 Anion Gap 11 (10-20) 11/23/16 06:30 BUN 11 mg/dL (7-21) 11/23/16 06:30 Creatinine 0.4 mg/dL (0.7-1.2) L 11/23/16 06:30 Est GFR ( Amer) > 60 11/23/16 06:30 Est GFR (Non-Af Amer) > 60 11/23/16 06:30 Random Glucose 96 mg/dL (70-110) 11/23/16 06:30 Calcium 9.2 mg/dL (8.4-10.5) 11/23/16 06:30 Phosphorus 5.6 mg/dL (2.5-4.5) H 11/23/16 06:30 Magnesium 1.7 mg/dL (1.7-2.2) 11/23/16 06:30 Total Bilirubin 0.6 mg/dL (0.2-1.3) 11/23/16 06:30 AST 17 U/L (14-36) 11/23/16 06:30 ALT 42 U/L (7-56) 11/23/16 06:30 Alkaline Phosphatase 98 U/L (38-126) 11/23/16 06:30 Total Protein 6.5 g/dL (5.8-8.3) 11/23/16 06:30 Albumin 3.5 g/dL (3.0-4.8) 11/23/16 06:30 Globulin 2.9 gm/dL 11/23/16 06:30 Albumin/Globulin Ratio 1.2 (1.1-1.8) 11/23/16 06:30 Venous Blood Potassium 4.0 mmol/L (3.6-5.2) 11/21/16 10:24 Urine Color Yellow (YELLOW) 11/21/16 10:24 Urine Appearance Sl cloudy (CLEAR) 11/21/16 10:24 Urine pH 7.0 (4.7-8.0) 11/21/16 10:24 Ur Specific [place] 1.015 (1.005-1.035) 11/21/16 10:24 Urine Protein Negative mg/dL (<30 mg/dL) 11/21/16 10:24 Urine Glucose (UA) Negative mg/dL (NEGATIVE) 11/21/16 10:24 Urine Ketones Negative mg/dL (NEGATIVE) 11/21/16 10:24 Urine Blood Trace-intact (NEGATIVE) H 11/21/16 10:24 Urine Nitrate Negative (NEGATIVE) 11/21/16 10:24 Urine Bilirubin Negative (NEGATIVE) 11/21/16 10:24 Urine Urobilinogen 0.2 E.U./dL (<1 E.U./dL) 11/21/16 10:24 Ur Leukocyte Esterase Large Jinny/uL (NEGATIVE) H 11/21/16 10:24 Urine RBC 0 - 2 /hpf (0-2) 11/21/16 10:24 Urine WBC 15 - 20 /hpf (0-6) 11/21/16 10:24 Ur Epithelial Cells 6 - 8 /hpf (0-5) 11/21/16 10:24 Urine Bacteria Few (NEG) 11/21/16 10:24 Urine Other Trichomonas 11/21/16 10:24 Urine HCG, Qual Negative (NEGATIVE) 11/21/16 10:24 Fluid Type Spinal fluid 11/21/16 13:10 CSF Volume 2 mL (0-1) H 11/21/16 13:10 CSF Appearance Clear/colorless (CLEAR) 11/21/16 13:10 CSF WBC 253.0 /uL (0.0-5.0) H 11/21/16 13:10 CSF RBC 6.0 /uL (0.0-0.0) H 11/21/16 13:10 CSF Total Cell Counted 100 (0-0) H 11/21/16 13:10 CSF Neutrophils 15 % (0-0) H 11/21/16 13:10 CSF Lymphocytes 82.0 % (0-0) H 11/21/16 13:10 CSF Monos/Macrophages 0 % (0-0) 11/21/16 13:10 CSF Comment TEST NOT PERFORMED 11/21/16 13:10 CSF Glucose 50 mg/dL (40-70) 11/21/16 13:10 CSF Total Protein 57.0 mg/dL (12-60) 11/21/16 13:10 - Hospital Course Hospital Course: Patient is a 26 year old female with past medical history of recurrent aseptic meningitis and hyperthyroidism who presented to the ED for headache and neck stiffness that started the night prior to admission. Most recent recurrence of meningitis was in February 2016 at which time she was treated and discharged on Acyclovir. She did not follow up with a neurologist due to insurance issues at that time. Patient received acyclovir and underwent lumbar puncture in the ED. Also received IV Rocephin and Vancomycin for possible bacterial meningitis. Symptoms improved. CSF was with lymphocyte predominance. CSF cultures showing no growth after 2 days. CSF HSV PCR still pending at this time. ID and Neurology were consulted. Blood cx also showing no growth. Head CT on admission was negative for acute intracranial pathology. Neurology recommending brain MRI which showed no acute pathology. Advised patient that she will need to follow up with neurologist as an outpatient. ID recommending possible need for antiviral suppressive therapy as outpatient. On admission, UA showed large leuk esterase, + trichomonas. Rocephin was continued for coverage. Urine cx grew Streptococcus anginosus. As Patient was asymptomatic, no further treatment was needed. For Trichomonas, patient was started on Flagyl. Patient advised that partner will need to be treated as well. Will need repeat testing for trichomonas 2-3 weeks after completion of antibiotic treatment. HIV and RPR results still pending, will need to follow up results with PMD outpatient. For hyperthyroidism, patient was on methimazole. On day of discharge, patient was doing well, Headaches resolved. Patient was ambulating and tolerating diet. Patient is medically stable for discharge. All medications were reconciled. She will be discharged on Valtrex 1gm q12 x 10 days and will continue Flagyl for total 7 days. Patient to follow up with PMD and Neurology within 1 week. All questions and concerns were addressed. Discharge Exam - Head Exam Head Exam: NORMAL INSPECTION - Eye Exam Eye Exam: EOMI, Normal appearance Pupil Exam: NORMAL ACCOMODATION, PERRL - ENT Exam ENT Exam: Mucous Membranes Moist - Neck Exam Neck exam: Full Rom - Respiratory Exam Respiratory Exam: Clear to PA & Lateral, NORMAL BREATHING PATTERN. absent: Rales, Rhonchi, Wheezes - Cardiovascular Exam Cardiovascular Exam: REGULAR RHYTHM, +S1, +S2 - GI/Abdominal Exam GI & Abdominal Exam: Normal Bowel Sounds, Soft. absent: Guarding, Rebound, Rigid, Tenderness - Extremities Exam Extremities exam: normal inspection - Back Exam Back exam: NORMAL INSPECTION - Neurological Exam Neurological exam: Alert, Normal Gait, Oriented x3 - Psychiatric Exam Psychiatric exam: Normal Affect, Normal Mood - Skin Skin Exam: Dry, Normal Color, Warm Discharge Plan - Discharge Medications Prescriptions: methIMAzole [Tapazole] 20 mg PO BID #60 tab metroNIDAZOLE [Flagyl] 500 mg PO Q8 #18 tab valACYclovir [Valtrex] 1 gm PO Q12H #20 tab - Follow Up Plan Condition: STABLE Disposition: HOME/ ROUTINE Instructions: Viral Meningitis (DC), Fever in Adults (GEN), Acute Headache (DC) Additional Instructions: 1. Patient to continue antibiotics and valtrex as prescribed 2. Patient to continue home medications 3. HSV CSF resulted still pending, will need to follow up results 4. Patient advised to follow up with PMD and neurology within 1 week 5. Recommending follow up with [facility], Will need repeat testing for trichomonas in 2-3 weeks after finishing abx treatment 6. Advised that sexual partner will need to be treated for Trichomonas as well 6. HIV/RPR still pending, f/u results as outpatient <Jimmie Valencia - Last Filed: 11/23/16 15:35> Provider - Provider Date of Admission: 11/21/16 13:59 Attending physician: Jimmie Valencia MD Hospital Course - Lab Results Lab Results: Most Recent Lab Values WBC 6.0 10^3/ul (4.5-11.0) 11/23/16 06:30 RBC 4.60 10^6/uL (3.5-6.1) 11/23/16 06:30 Hgb 10.8 g/dL (12.0-16.0) L 11/23/16 06:30 Hct 33.9 % (36.0-48.0) L 11/23/16 06:30 MCV 73.7 fl (80.0-105.0) L 11/23/16 06:30 MCH 23.5 pg (25.0-35.0) L 11/23/16 06:30 MCHC 31.9 g/dl (31.0-37.0) 11/23/16 06:30 RDW 12.5 % (11.5-14.5) 11/23/16 06:30 Plt Count 216 10^3/uL (120.0-450.0) 11/23/16 06:30 MPV 9.3 fl (7.0-11.0) 11/23/16 06:30 Gran % 46.2 % (50.0-68.0) L 11/23/16 06:30 Lymph % (Auto) 37.9 % (22.0-35.0) H 11/23/16 06:30 Collier % (Auto) 8.8 % (1.0-6.0) H 11/23/16 06:30 Eos % (Auto) 6.6 % (1.5-5.0) H 11/23/16 06:30 Baso % (Auto) 0.5 % (0.0-3.0) 11/23/16 06:30 Gran # 2.78 (1.4-6.5) 11/23/16 06:30 Lymph # 2.3 (1.2-3.4) 11/23/16 06:30 Collier # 0.5 (0.1-0.6) 11/23/16 06:30 Eos # 0.4 (0.0-0.7) 11/23/16 06:30 Baso # 0.03 K/mm3 (0.0-2.0) 11/23/16 06:30 pO2 39 mm/Hg (30-55) 11/21/16 10:24 VBG pH 7.34 (7.32-7.43) 11/21/16 10:24 VBG pCO2 51.0 (40-60) 11/21/16 10:24 VBG HCO3 27.5 mmol/l (21-28) 11/21/16 10:24 VBG Total CO2 29.1 mmol.L (22-28) H 11/21/16 10:24 VBG O2 Sat (Calc) 80.0 % (40-65) H 11/21/16 10:24 VBG Base Excess 0.9 mmol/L (0.0-2.0) 11/21/16 10:24 VBG Potassium 4.0 mmol/L (3.6-5.2) 11/21/16 10:24 Sodium 137.0 mmol/L (132-148) 11/21/16 10:24 Chloride 106.0 mmol/L (98-107) 11/21/16 10:24 Glucose 102 mg/dl (65-105) 11/21/16 10:24 Lactate 1.0 mmol/L (0.7-2.1) 11/21/16 10:24 FiO2 21.0 % 11/21/16 10:24 Sodium 140 mmol/L (132-148) 11/23/16 06:30 Potassium 3.8 mmol/L (3.6-5.0) 11/23/16 06:30 Chloride 107 mmol/L (95-110) 11/23/16 06:30 Carbon Dioxide 26 mmol/L (21-33) 11/23/16 06:30 Anion Gap 11 (10-20) 11/23/16 06:30 BUN 11 mg/dL (7-21) 11/23/16 06:30 Creatinine 0.4 mg/dL (0.7-1.2) L 11/23/16 06:30 Est GFR ( Amer) > 60 11/23/16 06:30 Est GFR (Non-Af Amer) > 60 11/23/16 06:30 Random Glucose 96 mg/dL (70-110) 11/23/16 06:30 Calcium 9.2 mg/dL (8.4-10.5) 11/23/16 06:30 Phosphorus 5.6 mg/dL (2.5-4.5) H 11/23/16 06:30 Magnesium 1.7 mg/dL (1.7-2.2) 11/23/16 06:30 Total Bilirubin 0.6 mg/dL (0.2-1.3) 11/23/16 06:30 AST 17 U/L (14-36) 11/23/16 06:30 ALT 42 U/L (7-56) 11/23/16 06:30 Alkaline Phosphatase 98 U/L (38-126) 11/23/16 06:30 Total Protein 6.5 g/dL (5.8-8.3) 11/23/16 06:30 Albumin 3.5 g/dL (3.0-4.8) 11/23/16 06:30 Globulin 2.9 gm/dL 11/23/16 06:30 Albumin/Globulin Ratio 1.2 (1.1-1.8) 11/23/16 06:30 Venous Blood Potassium 4.0 mmol/L (3.6-5.2) 11/21/16 10:24 Urine Color Yellow (YELLOW) 11/21/16 10:24 Urine Appearance Sl cloudy (CLEAR) 11/21/16 10:24 Urine pH 7.0 (4.7-8.0) 11/21/16 10:24 Ur Specific [place] 1.015 (1.005-1.035) 11/21/16 10:24 Urine Protein Negative mg/dL (<30 mg/dL) 11/21/16 10:24 Urine Glucose (UA) Negative mg/dL (NEGATIVE) 11/21/16 10:24 Urine Ketones Negative mg/dL (NEGATIVE) 11/21/16 10:24 Urine Blood Trace-intact (NEGATIVE) H 11/21/16 10:24 Urine Nitrate Negative (NEGATIVE) 11/21/16 10:24 Urine Bilirubin Negative (NEGATIVE) 11/21/16 10:24 Urine Urobilinogen 0.2 E.U./dL (<1 E.U./dL) 11/21/16 10:24 Ur Leukocyte Esterase Large Jinny/uL (NEGATIVE) H 11/21/16 10:24 Urine RBC 0 - 2 /hpf (0-2) 11/21/16 10:24 Urine WBC 15 - 20 /hpf (0-6) 11/21/16 10:24 Ur Epithelial Cells 6 - 8 /hpf (0-5) 11/21/16 10:24 Urine Bacteria Few (NEG) 11/21/16 10:24 Urine Other Trichomonas 11/21/16 10:24 Urine HCG, Qual Negative (NEGATIVE) 11/21/16 10:24 Fluid Type Spinal fluid 11/21/16 13:10 CSF Volume 2 mL (0-1) H 11/21/16 13:10 CSF Appearance Clear/colorless (CLEAR) 11/21/16 13:10 CSF WBC 253.0 /uL (0.0-5.0) H 11/21/16 13:10 CSF RBC 6.0 /uL (0.0-0.0) H 11/21/16 13:10 CSF Total Cell Counted 100 (0-0) H 11/21/16 13:10 CSF Neutrophils 15 % (0-0) H 11/21/16 13:10 CSF Lymphocytes 82.0 % (0-0) H 11/21/16 13:10 CSF Monos/Macrophages 0 % (0-0) 11/21/16 13:10 CSF Comment TEST NOT PERFORMED 11/21/16 13:10 CSF Glucose 50 mg/dL (40-70) 11/21/16 13:10 CSF Total Protein 57.0 mg/dL (12-60) 11/21/16 13:10 HSV Source Description Csf 11/21/16 09:56 HSV I DNA PCR Not detected (Not Detected) 11/21/16 09:56 HSV II DNA PCR Not detected (Not Detected) 11/21/16 09:56 Attending/Attestation - Attestation I have personally seen and examined this patient.: Yes I have fully participated in the care of the patient.: Yes I have reviewed all pertinent clinical information, including history, physical exam and plan: Yes Notes (Text): 11/23/16 15:34 attending note; Patient seen and examined. Patient is a 26-year-old female with a past medical history of recurrent aseptic meningitis is admitted with headache. Status post LP . started on IV acyclovir. Currently feeling better. Gram stain is negative. Culture and HSV is negative.. Case discussed with neurology and ID in detail. MRI of the brain is normal. Trichomonas in urine. continue Flagyl. partner to be treated. patient informed. Discharge home today. Upon discharge the patient will follow-up with PMD dr. Scruggs. Diagnosis; Aseptic meningitis Trichomonas infection Obesity
[2016-11-23 12:25] VITALS: BP 114/62; PULSE 78; TEMP 98; O2SAT 95
--- NOTE | 2016-11-23 13:01 | CP.PCM.PN ---
Subjective - Date & Time of Evaluation Date of Evaluation: 11/23/16 Time of Evaluation: 11:50 - Subjective Subjective: Comfortable, not in distress, headache and neck stifness are much improved, no fevers. Objective - Vital Signs/Intake and Output Vital Signs (last 24 hours): Temp Pulse Resp BP Pulse Ox 97.5 F L 81 20 139/63 99 11/23/16 00:00 11/23/16 00:00 11/23/16 00:00 11/23/16 00:00 11/23/16 00:00 Intake and Output: 11/23/16 11/23/16 06:59 18:59 Intake Total 1480 Balance 1480 - Medications Medications: Current Medications Acetaminophen (Tylenol 325mg Tab) 650 mg PO Q6H PRN PRN Reason: Fever >100.4 F Last Admin: 11/22/16 21:46 Dose: 650 mg Sodium Chloride (Sodium Chloride 0.9%) 1,000 mls @ 100 mls/hr IV .Q10H [facility] Last Admin: 11/22/16 05:58 Dose: 100 mls/hr Ceftriaxone Sodium (Rocephin 1 Gram Ivpb) 1 gm in 100 mls @ 100 mls/hr IVPB DAILY [facility] PRN Reason: Protocol Last Admin: 11/23/16 09:12 Dose: 100 mls/hr Acyclovir 570 mg/ Sodium (Chloride) 100 mls @ 100 mls/hr IV Q8 [facility] PRN Reason: Protocol Last Admin: 11/23/16 06:24 Dose: 100 mls/hr Methimazole (Tapazole) 20 mg PO BID [facility] Last Admin: 11/23/16 09:13 Dose: 20 mg Metronidazole (Flagyl) 500 mg PO Q8 [facility] PRN Reason: Protocol Last Admin: 11/23/16 06:24 Dose: 500 mg Pantoprazole Sodium (Protonix Ec Tab) 40 mg PO 0600 [facility] Last Admin: 11/23/16 06:24 Dose: 40 mg - Labs Labs: 11/23/16 06:30 11/23/16 06:30 - Constitutional Appears: Non-toxic, No Acute Distress - Head Exam Head Exam: NORMAL INSPECTION - ENT Exam ENT Exam: Mucous Membranes Moist - Neck Exam Neck Exam: absent: Meningismus - Respiratory Exam Respiratory Exam: Decreased Breath Sounds. absent: Rales - Cardiovascular Exam Cardiovascular Exam: +S1, +S2 - GI/Abdominal Exam GI & Abdominal Exam: Soft. absent: Tenderness Assessment and Plan - Assessment and Plan (Free Text) Plan: Assessment Lymphocytic meningitis with sepsis, consider viral meningitis with no evidence of bacterial meningitis probable asymptomatic bacteriuria with gram positive cocci Trichomoniasis aseptic meningitis hyperthyroidism S/P S/P adenoidectomy obesity with BMI 36 Plan will d/c rocephin - patient does not have urinary symptoms - on Acyclovir and can switch to PO Valtrex to complete 7-10 more days; CSF cx are negative; CSF HSV PCR is pending; brain MRI is unremarkable since this may be recurrent meningitis, she may need to be on suppressive therapy after this acute therapy with antivirals and needs Neurology follow up as outpatient continue Flagyl for Trichomoniasis and will advise patient that sexual partner should also be treated HIV test, RPR can be followed as outpatient with patient's PMD
[2016-11-23 13:56] LABS: SPECIMEN SOURCE CSF
== END 2016-11-23 15:59 | disposition home or self-care (01) | DRG 888 ==
LOC: ED 08:56 → ERH 13:59 → 5RSO 17:14
PROVIDERS: ADMIT Internal Medicine; ATTEND Internal Medicine
PROC: 009U3ZX Drainage of Spinal Canal, Percutaneous Approach, Diagnostic (ICD-10-PCS; principal; 2016-11-21)
DX: G03.0 Nonpyogenic meningitis (principal); N39.0 Urinary tract infection, site not specified; E05.90 Thyrotoxicosis, unspecified without thyrotoxic crisis or storm; A59.8 Trichomoniasis of other sites; B95.4 Other streptococcus as the cause of diseases classified elsewhere; J32.4 Chronic pansinusitis; N92.1 Excessive and frequent menstruation with irregular cycle; E66.9 Obesity, unspecified; Z68.36 Body mass index [BMI] 36.0-36.9, adult; Z88.6 Allergy status to analgesic agent

== ENCOUNTER 2018-02-12 14:14 | Emergency (ER) | payer MEDICAID ==
[2018-02-12 15:45] VITALS: RESP 18; TEMP 98.5; BMI 38.2
--- NOTE | 2018-02-12 17:08 | US ---
PROCEDURE: Right lower extremity venous US HISTORY: Leg pain and swelling. Evaluate for DVT. PHYSICIAN(S): Mu Hernandez M.D. TECHNIQUE: Duplex sonography and color-flow Doppler with graded compression were used to evaluate the deep venous system of the right lower extremity. The exam is somewhat limited by body habitus and edema FINDINGS: The visualized deep venous system of the right lower extremity is sonographically normal and compressible. Normal waveforms and augmentation are seen. There is no sonographic evidence for deep venous thrombosis in the visualized segments of the right lower extremity. IMPRESSION: 1. No sonographic evidence for deep venous thrombosis in the visualized segments of the right lower extremity.
--- NOTE | 2018-02-12 17:45 | RAD ---
Date of service: 02/12/2018 PROCEDURE: Right Ankle Radiographs. HISTORY: posterior ankle pain COMPARISON: None available. FINDINGS: BONES: Normal. No fracture. JOINTS: Normal. No osteoarthritis. Ankle mortise maintained. Talar dome intact SOFT TISSUES: Normal. OTHER FINDINGS: None. IMPRESSION: Normal right ankle radiographs.
--- NOTE | 2018-02-12 18:43 | ED PDOC ---
Arrival/HPI - General Chief Complaint: Lower Extremity Problem/Injury Time Seen by Provider: 02/12/18 14:33 Historian: Patient - History of Present Illness Narrative History of Present Illness (Text): 02/12/18 18:57 27yr old female presents today with right posterior ankle pain. Patient denies any recent trauma or injury but states that she did stand on her to be toes to put something on the spine itself at work. Patient states she got home from work last night around midnight and then around 1:00 in the morning she started to develop a pain in the right calf. Patient states she is allergic to Motrin so she went to the emergency room at another hospital and had x-rays of the ankle which showed no fracture and she was given Tylenol and sent home. Patient presents today with continued pain in the posterior right ankle. She denies fevers or chills. She denies calf pain. No other medications have been taken for pain at home. Past Medical History - Provider Review Nursing Documentation Reviewed: Yes - Travel History Have you recently traveled outside [place] w/in the past 3 mons?: No - Past History Past History: No Previous - Infectious Disease Hx of Infectious Diseases: None - Tetanus Immunization Tetanus Immunization: Unknown - Past Medical History Past Medical History: No Previous - Cardiac Hx Cardiac Disorders: No - Pulmonary Hx Respiratory Disorders: No - Neurological Hx Neurological Disorder: Yes Hx Meningitis: Yes (viral) Hx Migraine: Yes - HEENT Hx HEENT Disorder: Yes Other/Comment: s/p adenoidectomy - Renal Hx Renal Disorder: No - Endocrine/Metabolic Hx Endocrine Disorders: Yes Hx Hyperthyroidism: Yes - Hematological/Oncological Hx Blood Disorders: No - Integumentary Hx Dermatological Disorder: No - Musculoskeletal/Rheumatological Hx Musculoskeletal Disorders: No - Gastrointestinal Hx Gastrointestinal Disorders: No - Genitourinary/Gynecological Hx Genitourinary Disorders: No - Psychiatric Hx Psychophysiologic Disorder: No Hx Substance Use: No - Past Surgical History Past Surgical History: No Previous - Surgical History Hx Section: Yes (x2) Hx Tonsillectomy: Yes Other/Comment: nose surgery 2 weeks ago - Anesthesia Hx Anesthesia: Yes Hx Anesthesia Reactions: No Hx Malignant Hyperthermia: No - Suicidal Assessment Feels Threatened In Home Enviroment: No Family/Social History - Physician Review Nursing Documentation Reviewed: Yes Family/Social History: Unknown Family HX Smoking Status: Never Smoked Hx Alcohol Use: Yes Frequency of alcohol use: Socially Hx Substance Use: No Hx Substance Use Treatment: No Allergies/Home Meds Allergies/Adverse Reactions: Allergies ibuprofen Allergy (Verified 02/12/18 15:32) ANAPHYLAXIS Review of Systems - Review of Systems Constitutional: absent: Fatigue, Fevers Respiratory: absent: SOB, Cough Cardiovascular: absent: Chest Pain, Palpitations Gastrointestinal: absent: Abdominal Pain, Nausea, Vomiting Genitourinary Female: absent: Dysuria, Frequency, Hematuria Musculoskeletal: Arthralgias (right calf/pain). absent: Back Pain, Neck Pain Skin: absent: Rash, Pruritis Neurological: absent: Headache, Dizziness Psychiatric: absent: Anxiety, Depression, Suicidal Ideation Physical Exam Vital Signs Reviewed: Yes Vital Signs Temp Pulse Resp BP Pulse Ox 02/12/18 15:33 98.5 F 104 H 18 136/83 96 Temperature: Afebrile Blood Pressure: Normal Pulse: Tachycardic Respiratory Rate: Normal Appearance: Positive for: Well-Appearing, Non-Toxic, Comfortable Pain Distress: None Mental Status: Positive for: Alert and Oriented X 3 - Systems Exam Head: Present: Atraumatic Mouth: Present: Moist Mucous Membranes Neck: Present: Normal Range of Motion Respiratory/Chest: Present: Clear to Auscultation, Good Air Exchange. No: Respiratory Distress, Accessory Muscle Use Cardiovascular: Present: Regular Rate and Rhythm, Normal S1, S2. No: Murmurs Back: Present: Normal Inspection Upper Extremity: Present: Normal ROM Lower Extremity: Present: CALF TENDERNESS, NORMAL PULSES, Normal ROM, Tenderness (right leg; + ttp over posterior ankle at achilles tendon. no swelling. no edema, no erythema; no warmth. sensation and distal pulses intact. no achilles void noted. donahue test is negative. ), Neurovascularly Intact (sensation and distal pulses intact. ), Capillary Refill < 2 s. No: Swelling Neurological: Present: GCS=15, Speech Normal, Motor Func Grossly Intact, Normal Sensory Function Skin: Present: Warm, Dry, Normal Color. No: Rashes Psychiatric: Present: Alert, Oriented x 3 Medical Decision Making ED Course and Treatment: 02/12/18 19:11 Patient is nontoxic well-appearing in no distress with stable vital signs lungs are clear to auscultation bilaterally. Venous duplex of the lower extremities; no dvt as read by dr. miguel. percocet given for pain. xray right ankle; no fracture Patient reassessment; patient is nontoxic well-appearing in no distress with stable vital signs pt placed into short leg posterior splint. crutches given for ambulation. I discussed the results with patient advised followup with a primary care physician within the next 2 days as well as the orthopedist/ precision farming coordinator. I've advised return if symptoms worsen persist or if there's concerning symptoms develop. Patient verbalizes understanding of discharge instructions and need for immediate followup. all aspects of this case were discussed the attending of record. Impression: Leg pain, percocet; 1 tablet every 6 hours as needed for moderate to severe pain. may cause drowsiness Follow-up with the primary care physician within the next 2 days Follow up with the orthopedist within the next 2 days. use crutches for ambulation Increase fluids Return immediately if symptoms worsen persist or if new concerning symptoms develop Reassessment Condition: Re-examined, Improved - RAD Interpretation Radiology Orders: 02/12/18 16:15 ANKLE RIGHT 3 VIEWS ROUTINE [RAD] Stat DUPLEX LOWER EXTRM VEIN RIGHT [US] Stat - Medication Orders Current Medication Orders: Discontinued Medications Tramadol HCl (Ultram) 50 mg PO STAT STA Stop: 02/12/18 16:16 Last Admin: 02/12/18 16:39 Dose: 50 mg MAR Pain Assessment Document 02/12/18 16:39 LA (Rec: 02/12/18 16:39 LA [id number]) Pain Reassessment Is this a pain reassessment? No Sleep Is patient sleeping during reassessment? No Presence of Pain Presence of Pain Yes Pain Scale Used Protocol: PSCALES Pain Scale Used Numeric Location Left, Right or Bilateral Right Pain Location Body Site Foot Description Pain Behavior Crying Disposition/Present on Arrival - Present on Arrival Any Indicators Present on Arrival: No History of DVT/PE: No History of Uncontrolled Diabetes: No Urinary Catheter: No History of Decub. Ulcer: No History Surgical Site Infection Following: None - Disposition Have Diagnosis and Disposition been Completed?: Yes Diagnosis: Leg pain Disposition: HOME/ ROUTINE Disposition Time: 18:48 Patient Plan: Discharge Condition: GOOD Additional Instructions: percocet; 1 tablet every 6 hours as needed for moderate to severe pain. may cause drowsiness Follow-up with the primary care physician within the next 2 days Follow up with the orthopedist within the next 2 days. use crutches for ambulation Increase fluids Return immediately if symptoms worsen persist or if new concerning symptoms develop Prescriptions: oxyCODONE/Acetaminophen [Percocet 5/325 mg Tab] 1 tab PO Q6H PRN #6 tab PRN Reason: moderate to severe pain Referrals: Macie Mac DPM [Staff Provider] - Follow up with primary Palak Hodges MD [Staff Provider] - Follow up with primary [facility] [Outside] - Follow up with primary [facility] [Outside] - Follow up with primary [facility] [Outside] - Follow up with primary Forms: [employer] ([place]), WORK NOTE
[2018-02-12 19:21] VITALS: BP 132/76; PULSE 97; O2SAT 97
== END 2018-02-12 19:26 | disposition home or self-care (01) ==
LOC: ED 14:14
DX: M79.604 Pain in right leg (principal)

== ENCOUNTER 2018-04-30 17:56 | Inpatient (IN) | payer MEDICAID ==
[2018-04-30 18:03] VITALS: BMI 36.6
--- NOTE | 2018-04-30 18:32 | ED PDOC ---
Arrival/HPI - General Historian: Patient - History of Present Illness Narrative History of Present Illness (Text): 04/30/18 18:17 27 y/o female, pmh including aseptic menegitis vs. viral menegitis/migraine headache, allergic to ibuprofen, c/o headache started this morning with no fall or trauma. Pt. stated that she woke up this morning with frontal headache, throbbing sensation, aggravted by bright light, feels like her usual headache she had in the past, had lower back pain and no numbness/tingling (pt. disagreed with the triage), no urinary or bowel incontinence or retention, no night sweat no rash, no dizziness, no change in vision, feels throbbing, no neck stiffness, no fever or rash, no weakness, no slurred speech, no recent traveling, no other medical or psychological complaints. Past Medical History - Provider Review Nursing Documentation Reviewed: Yes - Past History Past History: No Previous - Infectious Disease Hx of Infectious Diseases: None - Tetanus Immunization Tetanus Immunization: Unknown - Past Medical History Past Medical History: No Previous - Cardiac Hx Cardiac Disorders: No - Pulmonary Hx Respiratory Disorders: No - Neurological Hx Neurological Disorder: Yes Hx Meningitis: Yes (viral) Hx Migraine: Yes - HEENT Hx HEENT Disorder: Yes Other/Comment: s/p adenoidectomy - Renal Hx Renal Disorder: No - Endocrine/Metabolic Hx Endocrine Disorders: No - Hematological/Oncological Hx Blood Disorders: No - Integumentary Hx Dermatological Disorder: No - Musculoskeletal/Rheumatological Hx Musculoskeletal Disorders: No - Gastrointestinal Hx Gastrointestinal Disorders: No - Genitourinary/Gynecological Hx Genitourinary Disorders: No - Psychiatric Hx Psychophysiologic Disorder: No Hx Substance Use: No - Past Surgical History Past Surgical History: No Previous - Surgical History Hx Section: Yes (x2) Hx Tonsillectomy: Yes Other/Comment: nose surgery 2 weeks ago - Anesthesia Hx Anesthesia: Yes Hx Anesthesia Reactions: No Hx Malignant Hyperthermia: No - Suicidal Assessment Feels Threatened In Home Enviroment: No Family/Social History - Physician Review Nursing Documentation Reviewed: Yes Family/Social History: Unknown Family HX Smoking Status: Never Smoked Hx Alcohol Use: No Hx Substance Use: No Hx Substance Use Treatment: No Allergies/Home Meds Allergies/Adverse Reactions: Allergies ibuprofen Allergy (Verified 04/30/18 18:03) ANAPHYLAXIS Review of Systems - Review of Systems Constitutional: absent: Fatigue, Fevers Eyes: absent: Vision Changes ENT: absent: Hearing Changes, Sore Throat, Rhinorrhea Respiratory: absent: SOB, Cough Cardiovascular: absent: Chest Pain Gastrointestinal: absent: Abdominal Pain, Diarrhea, Nausea, Vomiting Musculoskeletal: absent: Arthralgias, Back Pain, Neck Pain, Joint Swelling, Myalgias Skin: absent: Rash, Pruritis Neurological: Headache Physical Exam Vital Signs Reviewed: Yes Temperature: Afebrile Blood Pressure: Normal Pulse: Regular Respiratory Rate: Normal Appearance: Positive for: Well-Appearing, Non-Toxic, Comfortable Pain Distress: Moderate Mental Status: Positive for: Alert and Oriented X 3 - Systems Exam Head: Present: Atraumatic, Normocephalic, Other (no temporal artery tenderness and no jaw claudication. ). No: Tenderness, Contusion, Swelling, Ecchymosis, Abrasion, Laceration Pupils: Present: PERRL Extroacular Muscles: Present: EOMI Conjunctiva: Present: Normal Ears: Present: NORMAL TM, Normal Canal. No: Erythema Mouth: Present: Moist Mucous Membranes Pharnyx: No: ERYTHEMA, EXUDATE, TONSILS ENLARGED Nose (External): Present: Atraumatic. No: Abrasion, Contusion, Laceration Nose (Internal): Present: Normal Inspection, No Active Bleeding. No: Rhinorrhea, Septal Hematoma, Epistaxis Neck: Present: Normal Range of Motion, Trachea Midline. No: Meningeal Signs, MIDLINE TENDERNESS, Paraspinal Tenderness, Lymphadenopathy Respiratory/Chest: Present: Clear to Auscultation, Good Air Exchange. No: Respiratory Distress, Accessory Muscle Use Cardiovascular: Present: Regular Rate and Rhythm, Normal S1, S2. No: Murmurs Abdomen: No: Tenderness, Distention, Peritoneal Signs, Rebound, Guarding Back: Present: Normal Inspection. No: CVA Tenderness, Midline Tenderness, Paraspinal Tenderness, Pain with Leg Raise, Decubitus Ulcer Upper Extremity: Present: Normal Inspection, Normal ROM, NORMAL PULSES, Neurovascularly Intact, Capillary Refill < 2s. No: Cyanosis, Edema, Deformity Lower Extremity: Present: Normal Inspection, NORMAL PULSES, Normal ROM, Neurovascularly Intact, Capillary Refill < 2 s. No: Edema, Tenderness, Swelling, Deformity Neurological: Present: GCS=15, CN II-XII Intact, Speech Normal, Motor Func Grossly Intact, Normal Cerebellar Funct, Gait Normal, Memory Normal, Other (negative kernig and brudzinski signs, no ataxia, no focal neurological deficits. ) Skin: Present: Warm, Dry, Normal Color. No: Rashes Lymphatic: No: Cervical Adenopathy Psychiatric: Present: Alert, Oriented x 3, Normal Insight, Normal Concentration Medical Decision Making ED Course and Treatment: 04/30/18 18:38 ICH vs. Migraine vs. tension headache vs. sinusitis vs menigitis -Labs -CT head -IV reglan/benadryl and fioriocet -Will LP if the pain persist -Observe and reassess 04/30/18 22:09 -Urine hcg is negative -UA show no UTI -Labs show no acute findings -Rapid flu is negative. -CT head Loss of the typical gyral/sulcal cortical markings may indicate diffuse cerebral edema. Evidence of left maxillary sinusitis. -Head improved then before but her source of low grade fever is unclear whether this is influenza?? vs. Menegitis??, I offered Lumbar puncture and she agreed to it. -Case discussed with neurologist wagon drill operator Dr. Maxwell including labs/radiology and vital signs, he recommend LP and treat it as he is not concerning about increase intracranial pressure. He recommend to add HSV PCR which I added as serum. 04/30/18 22:15 PROCEDURE: LUMBAR PUNCTURE Performed by the emergency provider Time: 22:15 Consent: Informed consent, after discussion of the risks, benefits, and alternatives to the procedure, was obtained Timeout: A timeout to verify the correct patient, procedure, and site was performed immediately prior to the procedure. Indication: Lumbar puncture to r/o menegitis Patient's position: The patient should curl into a position, placing the lumbar spine in maximal flexion. Anesthesia: Local anesthesia: Lidocaine 1% 5cc See MAR for details. Preparation: Patient was prepped and draped in the usual sterile fashion and sterile technique was used. The landmarks were identified. Needle size: A 22 gauge spinal needle. Lumbar entry space: L3L4 level. Fluid appearance: unable to obtained due to no leakage of fluid. Post-procedure: Site cleansed and adhesive bandage applied. The patient tolerated the procedure well with no immediate complications. CSF was sent to lab for analysis. Pt. is neurovascular intact with no urinary or bowel incontinence or retention, no numb ness or tingling. Pt. is laying flat and advised for 3 hours. 04/30/18 22:57 -Unable to perform the LP due to the patient's previous LP site with multiple scars and she had it under fluorsocopy last time for LP, will need floroscopy guidance for this procedure -I will treat with IV vanco 20mg/kg and Rocephine 2gm with acycylovir 10mg/kg in the ER for empiric treatment, discussed with the patient and she agreed. -Case discussed with ER attending Dr. Salazar, he agreed on the plan of care and diagnosis -Will admit the patient for further evaluation. 04/30/18 23:24 -I spoke to the admitting physician Dr. Diaz and the medical grade shoemaker, discussed about the case/labs/radiology study, agreed to admit the patient to hospitalist service. - RAD Interpretation Radiology Orders: EXAM: CT Head without Intravenous Contrast. CLINICAL HISTORY: KING TECHNIQUE: Axial computed tomography images of the head/brain without intravenous contrast. 984.00 mGy-cm COMPARISON: None provided. FINDINGS: BRAIN No acute intraparenchymal hemorrhage. No mass lesion. No CT evidence for acute territorial infarct. No midline shift or extra-axial collections. There is generalized loss of the typical gyral/sulcal markings of the cerebral cortex. Some diffuse cerebral edema cannot be excluded. VENTRICLES: No hydrocephalus. ORBITS: The orbits are unremarkable. SINUSES AND MASTOIDS: Mucoperiosteal thickening is noted in the left maxillary sinus compatible with sinusitis. The remaining paranasal sinuses and mastoid air cells are clear. BONES: No fracture. SOFT TISSUES: Unremarkable. IMPRESSION: 1. Loss of the typical gyral/sulcal cortical markings may indicate diffuse cerebral edema. 2. Evidence of left maxillary sinusitis. Electronically signed on Apr 30, 2018 9:43:31 PM EDT by: Abhishek Morales M.D., SYEDA Certified By [facility] & [facility] Fellowship Trained MRI and CT Specialist Manufacturing Group Leader: Radiologist - PA / [employer] EXAMINER / Resident Statement MD/DO has reviewed & agrees with the documentation as recorded. Disposition/Present on Arrival - Present on Arrival Any Indicators Present on Arrival: No History of DVT/PE: No History of Uncontrolled Diabetes: No Urinary Catheter: No History of Decub. Ulcer: No History Surgical Site Infection Following: None - Disposition Have Diagnosis and Disposition been Completed?: Yes Diagnosis: Headache, Fever Disposition: HOSPITALIZED Disposition Time: 22:57 Patient Plan: Observation Patient Problems: Current Active Problems Problem Status Onset Fever Acute Headache Acute Condition: GUARDED
[2018-04-30] MEDS ORDERED: Sodium Chloride 0.9% 1,000 ML IV STA (18:33)
[2018-04-30] MEDS ORDERED: Apap-Butalbital-Caffeine 325-50-40mg Tab PO STA (18:33)
[2018-04-30] MEDS ORDERED: DiphenhydrAMINE 50 mg/ml Inj IVP STA (18:33)
[2018-04-30 19:20] LABS: BASO # 0.03 K/mm3 (0.0-2.0); BASO % 0.3 % (0.0-3.0); EOS # 0.1 (0.0-0.7); EOS % 0.9 % (1.5-5.0); HEMOGLOBIN 12.4 g/dL (12.0-16.0); LYMPH # 3.1 (1.2-3.4); LYMPH % 31.5 % (22.0-35.0); MEAN CELL VOLUME 74.4 fl (80.0-105.0); MEAN CORPUSCULAR HEMOGLOBIN 23.9 pg (25.0-35.0); MEAN CORPUSCULAR HGB CONC 32.1 g/dl (31.0-37.0); MEAN PLATELET VOLUME 9.5 fl (7.0-11.0); MONO # 0.7 (0.1-0.6); MONO % 6.7 % (1.0-6.0); RBC 5.19 10^6/uL (3.5-6.1); RED CELL DISTRIBUTION WIDTH 12.6 % (11.5-14.5); WHITE BLOOD COUNT 9.8 10^3/uL (4.5-11.0)
[2018-04-30 19:24] LABS: INR 1.16; PARTIAL THROMBOPLASTIN TIME 45.7 Seconds (26.9-38.3); PROTHROMBIN TIME 12.9 SECONDS (9.4-12.5)
[2018-04-30 19:29] LABS: ALBUMIN 4.1 g/dL (3.0-4.8); ALT/SGPT 13 U/L (7-56); AST/SGOT 27 U/L (14-36); BLOOD UREA NITROGEN 14 mg/dL (7-21); CALCIUM 9.7 mg/dL (8.4-10.5); GFR NON-AFRICAN AMERICAN > 60
[2018-04-30 19:34] LABS: PH,URINE 7.5 (4.7-8.0); URINE BILIRUBIN NEGATIVE (NEGATIVE); URINE BLOOD NEGATIVE (NEGATIVE); URINE GLUCOSE (UA) NEGATIVE (NEGATIVE); URINE LEUKOCYTE ESTERASE NEGATIVE Leu/uL (NEGATIVE); URINE PROTEIN 30 mg/dL (<30 mg/dL); URINE UROBILINOGEN 0.2 E.U./dL (<1 E.U./dL)
[2018-04-30 19:37] LABS: URINE APPEARANCE SL CLOUDY (CLEAR); URINE COLOR YELLOW (YELLOW)
[2018-04-30 19:39] LABS: URINE BACTERIA MOD /hpf
[2018-04-30] MEDS ORDERED: Lidocaine 1% Inj (20ml) IJ STA (21:31)
[2018-04-30] MEDS ORDERED: cefTRIAXone 2 GM IN NS 2 GM/100 ML BAG IVPB STA (22:47)
[2018-04-30] MEDS ORDERED: Vancomycin 2 GM in Sodium Chloride 0.9% 500 ML IVPB ONE (22:47)
--- NOTE | 2018-05-01 00:18 | CP.PCM.HP ---
<Damon Sullivan - Last Filed: 05/01/18 05:39> History of Present Illness - History of Present Illness History of Present Illness: Dr Sullivan Hospitalist Service Note for Dr Diaz Patient is a 27 year old female with past medical history of aspetic meningitis and hyperthyroidism presents to the ED for throbbing, non-radiating headache back and neck pain that began at 9am this past morning. Reports her grandmother telling her she felt warm. Pt reports this pain feels the same as her previous episodes of viral meningitis. Pt took one Acyclovir 500mg tab today @ 10am. Pt says this episode she did not get photosensitivity that she she has experienced in the past. Pt says Francisco has worked for her in the past. She states she has not been following up with her neurologist in office due to insurance issues, pt cannot recall the name of her Neurologist. Pt reports she recently had a Left sinus surgery one year ago with her ENT at [place], Pt cannot recall the name of her ENT. Pt was also recently diagnosed with Hyperthyroidism however cannot recall the medications prescribed or the name of her record pressman. Of note- Pt has had 3 previous admissions for Aseptic Meningitis in the recent past. Pt says its been 2 years since her last episode of these meningitis-type symptoms. ROS: Pos Headache, neck and back pain, subjective fevers, hx of aseptic meningitis, recent ENT sx, poor follow up compliance Neg Chills, Diaphoresis, Rashes, sick contacts, vision changes, hearing changes, syncope, head trauma, memory/cognitive/mood changes, med changes ED Course: Acyclovir 500mg x 1, Rocephin 2gm x 1, Vanco 1.5gm x 1, Reglan 10mg, Benadryl 50 IVP PMD: Dr Tanja Scruggs Allergies: Ibuprofen Medical History: Hyperthyroidism, Meningitis Medications: Methimazole 10mg 2 tabs BID- unconfirmed Surgical Hx: C/S x 2, Adenoidectomy, Sinus surgery 2018 Social Hx: Denies alcohol, tobacco, drug use Family Hx: Grandmother - Heart disease, thyroid disease? [facility] Present on Admission - Present on Admission Any Indicators Present on Admission: No Review of Systems - Constitutional Constitutional: Fever, Headache - EENT Eyes: absent: Change in Vision Nose/Mouth/Throat: absent: Nasal Congestion - Cardiovascular Cardiovascular: absent: Chest Pain, Syncope - Respiratory Respiratory: absent: Cough, Dyspnea - Gastrointestinal Gastrointestinal: absent: Abdominal Pain, Diarrhea, Dysphagia, Nausea, Vomiting - Genitourinary Genitourinary: absent: Dysuria, Urinary Frequency - Musculoskeletal Musculoskeletal: Back Pain, Neck Pain. absent: Arthralgias, Muscle Weakness, Myalgias, Numbness, Stiffness, Tingling - Integumentary Integumentary: absent: Lesions, Rash - Neurological Neurological: Headaches. absent: Confusion, Memory Loss, Syncope, Vertigo, Weakness - Psychiatric Psychiatric: absent: Anxiety, Depression - Endocrine Additional Comments: weight loss- unsure of exact amount - Hematologic/Lymphatic Hematologic: absent: Easy Bleeding, Easy Bruising Past Patient History - Infectious Disease Hx of Infectious Diseases: None - Tetanus Immunizations Tetanus Immunization: Unknown - Past Social History Smoking Status: Never Smoked - CARDIAC Hx Cardiac Disorders: No - PULMONARY Hx Respiratory Disorders: No - NEUROLOGICAL Hx Neurological Disorder: Yes Hx Meningitis: Yes (viral) Hx Migraine: Yes - HEENT Hx HEENT Problems: Yes Other/Comment: s/p adenoidectomy - RENAL Hx Chronic Kidney Disease: No - ENDOCRINE/METABOLIC Hx Endocrine Disorders: No - HEMATOLOGICAL/ONCOLOGICAL Hx Blood Disorders: No - INTEGUMENTARY Hx Dermatological Problems: No - MUSCULOSKELETAL/RHEUMATOLOGICAL Hx Musculoskeletal Disorders: No - GASTROINTESTINAL Hx Gastrointestinal Disorders: No - GENITOURINARY/GYNECOLOGICAL Hx Genitourinary Disorders: No - PSYCHIATRIC Hx Psychophysiologic Disorder: No Hx Substance Use: No - SURGICAL HISTORY Hx Section: Yes (x2) Hx Tonsillectomy: Yes Other/Comment: nose surgery 2 weeks ago - ANESTHESIA Hx Anesthesia: Yes Hx Anesthesia Reactions: No Hx Malignant Hyperthermia: No Meds Allergies/Adverse Reactions: Allergies Allergy/AdvReac Type Severity Reaction Status Date / Time ibuprofen Allergy ANAPHYLAXIS Verified 04/30/18 18:03 Physical Exam - Constitutional Appears: Non-toxic, No Acute Distress - Head Exam Head Exam: ATRAUMATIC, NORMAL INSPECTION - Eye Exam Eye Exam: EOMI, PERRL. absent: Scleral icterus Pupil Exam: NORMAL ACCOMODATION, PERRL Additional comments: moderate exophthalmos - ENT Exam ENT Exam: Mucous Membranes Moist - Neck Exam Neck exam: Negative for: Lymphadenopathy, Meningismus, Tenderness - Respiratory Exam Respiratory Exam: Clear to Auscultation Bilateral, NORMAL BREATHING PATTERN. absent: Rales, Rhonchi, Wheezes - Cardiovascular Exam Cardiovascular Exam: RRR, +S1, +S2 - GI/Abdominal Exam GI & Abdominal Exam: Normal Bowel Sounds, Soft. absent: Distended, Tenderness Additional comments: large central body habitus - Extremities Exam Extremities exam: Positive for: pedal pulses present. Negative for: pedal edema, tenderness Additional comments: neg kernig/ brudzinski babinski reflexes intact - Back Exam Back exam: NORMAL INSPECTION. absent: CVA tenderness (L), CVA tenderness (R), muscle spasm, tenderness, vertebral tenderness - Neurological Exam Neurological exam: Alert, CN II-XII Intact, Oriented x3, Reflexes Normal Additional comments: no apprehension with light in eyes, babinksi intact lashell, - Psychiatric Exam Psychiatric exam: Normal Affect, Normal Mood Additional comments: appropriate responses - Skin Skin Exam: Dry, Normal Color, Warm Additional comments: no petechia, no rashes, no flushing seen Results - Vital Signs Recent Vital Signs: Last Vital Signs Temp 97.9 F 05/01/18 00:03 Pulse 102 H 05/01/18 00:03 Resp 18 05/01/18 00:03 BP 126/70 05/01/18 00:03 Pulse Ox 100 05/01/18 00:03 - Labs Result Diagrams: 04/30/18 19:00 04/30/18 19:00 Labs: Laboratory Results - last 24 hr 04/30/18 04/30/18 04/30/18 17:15 17:15 19:00 WBC 9.8 RBC 5.19 Hgb 12.4 Hct 38.6 MCV 74.4 L MCH 23.9 L MCHC 32.1 RDW 12.6 Plt Count 278 MPV 9.5 Neut % (Auto) 60.6 Lymph % (Auto) 31.5 Andrew % (Auto) 6.7 H Eos % (Auto) 0.9 L Baso % (Auto) 0.3 Lymph # (Auto) 3.1 Andrew # (Auto) 0.7 H Eos # (Auto) 0.1 Baso # (Auto) 0.03 Absolute Neuts (auto) 5.96 PT INR APTT Sodium Potassium Chloride Carbon Dioxide Anion Gap BUN Creatinine Est GFR ( Amer) Est GFR (Non-Af Amer) Random Glucose Calcium Magnesium Total Bilirubin AST ALT Alkaline Phosphatase Total Protein Albumin Globulin Albumin/Globulin Ratio Beta HCG, Quant Urine Color Yellow Urine Appearance Sl cloudy Urine pH 7.5 Ur Specific [place] 1.020 Urine Protein 30 H Urine Glucose (UA) Negative Urine Ketones Negative Urine Blood Negative Urine Nitrate Negative Urine Bilirubin Negative Urine Urobilinogen 0.2 Ur Leukocyte Esterase Negative Urine RBC None Urine WBC 1 - 3 Ur Epithelial Cells 6 - 8 H Urine Bacteria Mod Influenza Typ A,B (EIA) Negative for flu a/b 04/30/18 04/30/18 04/30/18 19:00 19:00 19:00 WBC RBC Hgb Hct MCV MCH MCHC RDW Plt Count MPV Neut % (Auto) Lymph % (Auto) Andrew % (Auto) Eos % (Auto) Baso % (Auto) Lymph # (Auto) Andrew # (Auto) Eos # (Auto) Baso # (Auto) Absolute Neuts (auto) PT 12.9 H INR 1.16 APTT 45.7 H Sodium 140 Potassium 3.9 Chloride 104 Carbon Dioxide 27 Anion Gap 13 BUN 14 Creatinine 0.3 L Est GFR ( Amer) > 60 Est GFR (Non-Af Amer) > 60 Random Glucose 119 H Calcium 9.7 Magnesium 1.9 Total Bilirubin 0.3 AST 27 ALT 13 Alkaline Phosphatase 120 Total Protein 8.1 Albumin 4.1 Globulin 4.0 Albumin/Globulin Ratio 1.0 L Beta HCG, Quant < 2.39 Urine Color Urine Appearance Urine pH Ur Specific [place] Urine Protein Urine Glucose (UA) Urine Ketones Urine Blood Urine Nitrate Urine Bilirubin Urine Urobilinogen Ur Leukocyte Esterase Urine RBC Urine WBC Ur Epithelial Cells Urine Bacteria Influenza Typ A,B (EIA) Assessment & Plan - Assessment and Plan (Free Text) Assessment: 26 year old female with past medical history of aseptic meningitis and hyperthyroidism presents with headache and neck stiffness since last night. Plan: 1. Recurrent Aseptic Meningitis - Currently Afebrile, Droplet precautions - Headaches resolved - CT head showing sinusitis, possible edema- pending offical read - ED unable to obtain LP - HSV pending - Acyclovir 500mg Q8H IV - Rocephin 2g q daily IVPB - Vanco 1g q12 IVPB (trough f/u 05/02 @ 10am) d/c if Strep Pna neg - NS @ 100 - Tylenol prn headache - Neurology on consult, f/u recommendations 2. Recurrent Headaches - Possible Migraine/ Chronic tension headaches - f/u neuro recs in AM - consider Fiorocet 3. Hyperthyroidism - holding home Methimazole 20mg BID until confirmed in AM with Pharmacy - Pt unsure if she takes GI/DVT ppx - SCDs - HHD <Calixto Diaz - Last Filed: 05/01/18 06:12> Results - Vital Signs Recent Vital Signs: Last Vital Signs Temp 98.3 F 05/01/18 01:00 Pulse 104 H 05/01/18 01:00 Resp 18 05/01/18 02:27 BP 154/80 H 05/01/18 01:00 Pulse Ox 96 05/01/18 01:00 - Labs Result Diagrams: 04/30/18 19:00 04/30/18 19:00 Labs: Laboratory Results - last 24 hr 04/30/18 04/30/18 04/30/18 17:15 17:15 19:00 WBC 9.8 RBC 5.19 Hgb 12.4 Hct 38.6 MCV 74.4 L MCH 23.9 L MCHC 32.1 RDW 12.6 Plt Count 278 MPV 9.5 Neut % (Auto) 60.6 Lymph % (Auto) 31.5 Andrew % (Auto) 6.7 H Eos % (Auto) 0.9 L Baso % (Auto) 0.3 Lymph # (Auto) 3.1 Andrew # (Auto) 0.7 H Eos # (Auto) 0.1 Baso # (Auto) 0.03 Absolute Neuts (auto) 5.96 PT INR APTT Sodium Potassium Chloride Carbon Dioxide Anion Gap BUN Creatinine Est GFR ( Amer) Est GFR (Non-Af Amer) Random Glucose Calcium Magnesium Total Bilirubin AST ALT Alkaline Phosphatase Total Protein Albumin Globulin Albumin/Globulin Ratio TSH 3rd Generation Beta HCG, Quant Urine Color Yellow Urine Appearance Sl cloudy Urine pH 7.5 Ur Specific [place] 1.020 Urine Protein 30 H Urine Glucose (UA) Negative Urine Ketones Negative Urine Blood Negative Urine Nitrate Negative Urine Bilirubin Negative Urine Urobilinogen 0.2 Ur Leukocyte Esterase Negative Urine RBC None Urine WBC 1 - 3 Ur Epithelial Cells 6 - 8 H Urine Bacteria Mod Influenza Typ A,B (EIA) Negative for flu a/b 04/30/18 04/30/18 04/30/18 19:00 19:00 19:00 WBC RBC Hgb Hct MCV MCH MCHC RDW Plt Count MPV Neut % (Auto) Lymph % (Auto) Andrew % (Auto) Eos % (Auto) Baso % (Auto) Lymph # (Auto) Andrew # (Auto) Eos # (Auto) Baso # (Auto) Absolute Neuts (auto) PT 12.9 H INR 1.16 APTT 45.7 H Sodium 140 Potassium 3.9 Chloride 104 Carbon Dioxide 27 Anion Gap 13 BUN 14 Creatinine 0.3 L Est GFR ( Amer) > 60 Est GFR (Non-Af Amer) > 60 Random Glucose 119 H Calcium 9.7 Magnesium 1.9 Total Bilirubin 0.3 AST 27 ALT 13 Alkaline Phosphatase 120 Total Protein 8.1 Albumin 4.1 Globulin 4.0 Albumin/Globulin Ratio 1.0 L TSH 3rd Generation Beta HCG, Quant < 2.39 Urine Color Urine Appearance Urine pH Ur Specific [place] Urine Protein Urine Glucose (UA) Urine Ketones Urine Blood Urine Nitrate Urine Bilirubin Urine Urobilinogen Ur Leukocyte Esterase Urine RBC Urine WBC Ur Epithelial Cells Urine Bacteria Influenza Typ A,B (EIA) 04/30/18 19:00 WBC RBC Hgb Hct MCV MCH MCHC RDW Plt Count MPV Neut % (Auto) Lymph % (Auto) Andrew % (Auto) Eos % (Auto) Baso % (Auto) Lymph # (Auto) Andrew # (Auto) Eos # (Auto) Baso # (Auto) Absolute Neuts (auto) PT INR APTT Sodium Potassium Chloride Carbon Dioxide Anion Gap BUN Creatinine Est GFR ( Amer) Est GFR (Non-Af Amer) Random Glucose Calcium Magnesium Total Bilirubin AST ALT Alkaline Phosphatase Total Protein Albumin Globulin Albumin/Globulin Ratio TSH 3rd Generation < 0.02 L Beta HCG, Quant Urine Color Urine Appearance Urine pH Ur Specific [place] Urine Protein Urine Glucose (UA) Urine Ketones Urine Blood Urine Nitrate Urine Bilirubin Urine Urobilinogen Ur Leukocyte Esterase Urine RBC Urine WBC Ur Epithelial Cells Urine Bacteria Influenza Typ A,B (EIA) Attending/Attestation - Attestation I have personally seen and examined this patient.: Yes I have fully participated in the care of the patient.: Yes I have reviewed all pertinent clinical information: Yes Notes (Text): Patient seen and examined with the residents, agree with above. Presents with frontal headache, questionable history of migraines?? Afebrile, no meningeal signs. Does not look toxic or ill appearing. Benign physical exam. Given her history of prior meningitis, patient had an unsuccessful spinal tap by the ER Started on broad spectrum Abx for coverage. Has remained afebrile CTH possible sinusitis, pending official read Will continue with Abx for now, ID and Neuro consultations in place. Supportive care, states her symptoms improved in the ER.
[2018-05-01] MEDS: Sodium Chloride 0.9% 1,000 ML IV SCH (00:26)
[2018-05-01] MEDS ORDERED: Acyclovir 500 MG in Sodium Chloride 0.9% 100 ML IV SCH (06:00)
[2018-05-01] MEDS: cefTRIAXone 2 GM IN NS 2 GM/100 ML BAG IVPB SCH ×2 (06:30→20:42)
[2018-05-01 07:44] LABS: BASO # 0.02 K/mm3 (0.0-2.0); BASO % 0.3 % (0.0-3.0); EOS # 0.1 (0.0-0.7); EOS % 1.7 % (1.5-5.0); HEMOGLOBIN 11.4 g/dL (12.0-16.0); LYMPH # 2.8 (1.2-3.4); MEAN CORPUSCULAR HEMOGLOBIN 23.4 pg (25.0-35.0); MEAN CORPUSCULAR HGB CONC 31.1 g/dl (31.0-37.0); MEAN PLATELET VOLUME 9.4 fl (7.0-11.0); MONO # 0.5 (0.1-0.6); MONO % 7.4 % (1.0-6.0); RBC 4.88 10^6/uL (3.5-6.1); RED CELL DISTRIBUTION WIDTH 12.7 % (11.5-14.5); WHITE BLOOD COUNT 7.1 10^3/uL (4.5-11.0)
[2018-05-01 08:08] LABS: ALB/GLOB RATIO 0.9 (1.1-1.8); ALBUMIN 3.4 g/dL (3.0-4.8); ALT/SGPT 18 U/L (7-56); AST/SGOT 27 U/L (14-36); BLOOD UREA NITROGEN 11 mg/dL (7-21); CALCIUM 9.3 mg/dL (8.4-10.5); GFR NON-AFRICAN AMERICAN > 60
[2018-05-01 08:36] LABS: FREE T4 4.52 ng/dL (0.78-2.19)
--- NOTE | 2018-05-01 09:11 | CT ---
Date of service: 04/30/2018 PROCEDURE: CT HEAD WITHOUT CONTRAST. HISTORY: frontal headache COMPARISON: 11/21/2016. TECHNIQUE: Axial computed tomography images were obtained through the head/brain without intravenous contrast. Radiation dose: Total exam DLP = 984.0 mGy-cm. This CT exam was performed using one or more of the following dose reduction techniques: Automated exposure control, adjustment of the mA and/or kV according to patient size, and/or use of iterative reconstruction technique. FINDINGS: HEMORRHAGE: No intracranial hemorrhage. BRAIN: Pack-white matter differentiation is preserved. There is diffuse effacement of the cortical sulci however this finding was also seen on the prior CT from November 2016. There is no mass, mass effect or abnormal extra-axial fluid collection. There is no territorial infarction. The midline sagittal structures are normal. VENTRICLES: The ventricles are normal in size, shape and configuration. CALVARIUM: There is no calvarial fracture or extracranial soft tissue swelling. PARANASAL SINUSES: There is fluid in the left maxillary sinus. The remaining included paranasal sinuses are clear. MASTOID AIR CELLS: The mastoid air cells are underdeveloped. OTHER FINDINGS: None. IMPRESSION: Diffuse effacement of the cortical sulci, a chronic finding since November 2016 of uncertain etiology and clinical significance. Underlying component of cerebral edema is a consideration. Clinical follow-up is advised. A preliminary report was provided by [employer].
[2018-05-01] MEDS ORDERED: Vancomycin 1gm in NS 250ml 1 GM/250 ML BAG IVPB SCH (10:00)
[2018-05-01] MEDS ORDERED: cefTRIAXone 2 GM IN NS 2 GM/100 ML BAG IVPB SCH (10:00)
--- NOTE | 2018-05-01 10:14 | CP.PCM.CON ---
<Juan Conroy - Last Filed: 05/01/18 20:23> History of Present Illness - History of Present Illness History of Present Illness: Juan Conroy PGY2 Neurology Consult note for Dr. Maxwell, consultation by Dr. 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 Neuology is being consulted by medicine for meningitis. Patient also complained of tightness in her spine with some numbness in her right arm which has resolved. Reports her grandmother telling her she felt warm but did not take her temperature. Pt rep orts this pain feels the same as her previous episodes of viral meningitis for which she was treated here in this hospital as well. Patient denies any aura, photosensitivity or sensitivity of sounds. Pt reports she recently had a Left sinus surgery one year ago with her ENT at [facility], Pt cannot recall the name of her ENT. 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 Denies Chills, Diaphoresis, Rashes, sick contacts, vision changes, hearing changes, syncope, head trauma, memory/cognitive/mood changes, med changes ED Course: Acyclovir 500mg x 1, Rocephin 2gm x 1, Vanco 1.5gm x 1, Reglan 10mg, Benadryl 50 IVP PMD: Dr Tanja Scruggs Allergies: Ibuprofen Medical History: Hyperthyroidism, Meningitis Medications: Methimazole 10mg 2 tabs BID- unconfirmed Surgical Hx: C/S x 2, Adenoidectomy, Sinus surgery 2018 Social Hx: Denies alcohol, tobacco, drug use Family Hx: Grandmother - Heart disease, thyroid disease? [facility] Review of Systems - Constitutional Constitutional: Fever, Headache. absent: Chills - Respiratory Respiratory: absent: Cough, Dyspnea - Gastrointestinal Gastrointestinal: absent: Nausea, Vomiting - Genitourinary Genitourinary: absent: Change in Urinary Stream, Urinary Incontinence - Musculoskeletal Musculoskeletal: Neck Pain, Stiffness. absent: Muscle Weakness, Numbness, Tingling - Integumentary Integumentary: absent: Rash, Sores - Neurological Neurological: Numbness, Headaches. absent: Abnormal Gait, Abnormal Hearing, Abnormal Movements, Abnormal Speech, Behavioral Changes, Burning Sensations, Confusion, Disequilibrium, Dizziness, Focal Weakness, Lack of Coordination, Loss of Vision, Restless Legs, Sensory Deficit, Syncope, Tingling, Tremor, Vertigo, Weakness Past Patient History - Infectious Disease Hx of Infectious Diseases: None - Tetanus Immunizations Tetanus Immunization: Unknown - Past Social History Smoking Status: Never Smoked - CARDIAC Hx Cardiac Disorders: No - PULMONARY Hx Respiratory Disorders: No - NEUROLOGICAL Hx Neurological Disorder: Yes Hx Meningitis: Yes (viral) Hx Migraine: Yes - HEENT Hx HEENT Problems: Yes Other/Comment: s/p adenoidectomy - RENAL Hx Chronic Kidney Disease: No - ENDOCRINE/METABOLIC Hx Endocrine Disorders: No - HEMATOLOGICAL/ONCOLOGICAL Hx Blood Disorders: No - INTEGUMENTARY Hx Dermatological Problems: No - MUSCULOSKELETAL/RHEUMATOLOGICAL Hx Musculoskeletal Disorders: No - GASTROINTESTINAL Hx Gastrointestinal Disorders: No - GENITOURINARY/GYNECOLOGICAL Hx Genitourinary Disorders: No - PSYCHIATRIC Hx Psychophysiologic Disorder: No Hx Substance Use: No - SURGICAL HISTORY Hx Section: Yes (x2) Hx Tonsillectomy: Yes Other/Comment: nose surgery 2 weeks ago - ANESTHESIA Hx Anesthesia: Yes Hx Anesthesia Reactions: No Hx Malignant Hyperthermia: No Meds Allergies/Adverse Reactions: Allergies Allergy/AdvReac Type Severity Reaction Status Date / Time ibuprofen Allergy ANAPHYLAXIS Verified 04/30/18 18:03 - Medications Medications: Current Medications Acetaminophen (Tylenol 325mg Tab) 650 mg PO Q6H PRN PRN Reason: Pain, moderate (4-7) Last Admin: 05/01/18 08:36 Dose: 650 mg Sodium Chloride (Sodium Chloride 0.9%) 1,000 mls @ 100 mls/hr IV .Q10H MARLON Last Admin: 05/01/18 00:26 Dose: 100 mls/hr Ceftriaxone Sodium (Rocephin 2 Gm Ivpb) 2 gm in 100 mls @ 100 mls/hr IVPB Q12H MARLON; Protocol Stop: 05/08/18 06:01 Last Admin: 05/01/18 06:30 Dose: 100 mls/hr Vancomycin HCl 1.5 gm/ Sodium (Chloride) 500 mls @ 167 mls/hr IVPB Q12H MARLON; Protocol Stop: 05/10/18 10:01 Acyclovir 750 mg/ Sodium (Chloride) 100 mls @ 100 mls/hr IV Q8 MARLON; Protocol Stop: 05/08/18 06:01 Last Admin: 05/01/18 07:47 Dose: Not Given Metoclopramide HCl (Reglan) 5 mg IVP Q6 PRN PRN Reason: Nausea/Vomiting Physical Exam - Constitutional Appears: Non-toxic, No Acute Distress - Head Exam Head Exam: ATRAUMATIC, NORMAL INSPECTION, NORMOCEPHALIC - Eye Exam Eye Exam: EOMI, Normal appearance, PERRL - ENT Exam ENT Exam: Mucous Membranes Moist - Respiratory Exam Respiratory Exam: NORMAL BREATHING PATTERN - Cardiovascular Exam Cardiovascular Exam: REGULAR RHYTHM, +S1, +S2 - GI/Abdominal Exam GI & Abdominal Exam: Soft. absent: Tenderness - Extremities Exam Extremities exam: Positive for: full ROM, pedal pulses present. Negative for: pedal edema - Back Exam Back exam: absent: rash noted, vertebral tenderness - Neurological Exam Neurological exam: Alert, CN II-XII Intact, Oriented x3, Reflexes Normal Additional comments: 5/5 Upper and Lower Extremity strength B/L, sensation in tact, no facial weakness, Negative Kernigs and Brudzinski Results - Vital Signs Recent Vital Signs: Last Vital Signs Temp 98.2 F 05/01/18 06:00 Pulse 94 H 05/01/18 06:00 Resp 20 05/01/18 06:00 BP 105/67 05/01/18 06:00 Pulse Ox 100 05/01/18 06:00 - Labs Result Diagrams: 05/01/18 07:00 05/01/18 07:00 Labs: Laboratory Results - last 24 hr 04/30/18 04/30/18 04/30/18 17:15 17:15 19:00 WBC 9.8 RBC 5.19 Hgb 12.4 Hct 38.6 MCV 74.4 L MCH 23.9 L MCHC 32.1 RDW 12.6 Plt Count 278 MPV 9.5 Neut % (Auto) 60.6 Lymph % (Auto) 31.5 [place] % (Auto) 6.7 H Eos % (Auto) 0.9 L Baso % (Auto) 0.3 Lymph # (Auto) 3.1 [place] # (Auto) 0.7 H Eos # (Auto) 0.1 Baso # (Auto) 0.03 Absolute Neuts (auto) 5.96 PT INR APTT Sodium Potassium Chloride Carbon Dioxide Anion Gap BUN Creatinine Est GFR ( Amer) Est GFR (Non-Af Amer) Random Glucose Calcium Phosphorus Magnesium Total Bilirubin AST ALT Alkaline Phosphatase Total Protein Albumin Globulin Albumin/Globulin Ratio Free T4 TSH 3rd Generation Beta HCG, Quant Urine Color Yellow Urine Appearance Sl cloudy Urine pH 7.5 Ur Specific [place] 1.020 Urine Protein 30 H Urine Glucose (UA) Negative Urine Ketones Negative Urine Blood Negative Urine Nitrate Negative Urine Bilirubin Negative Urine Urobilinogen 0.2 Ur Leukocyte Esterase Negative Urine RBC None Urine WBC 1 - 3 Ur Epithelial Cells 6 - 8 H Urine Bacteria Mod Influenza Typ A,B (EIA) Negative for flu a/b 04/30/18 04/30/18 04/30/18 19:00 19:00 19:00 WBC RBC Hgb Hct MCV MCH MCHC RDW Plt Count MPV Neut % (Auto) Lymph % (Auto) [place] % (Auto) Eos % (Auto) Baso % (Auto) Lymph # (Auto) [place] # (Auto) Eos # (Auto) Baso # (Auto) Absolute Neuts (auto) PT 12.9 H INR 1.16 APTT 45.7 H Sodium 140 Potassium 3.9 Chloride 104 Carbon Dioxide 27 Anion Gap 13 BUN 14 Creatinine 0.3 L Est GFR ( Amer) > 60 Est GFR (Non-Af Amer) > 60 Random Glucose 119 H Calcium 9.7 Phosphorus Magnesium 1.9 Total Bilirubin 0.3 AST 27 ALT 13 Alkaline Phosphatase 120 Total Protein 8.1 Albumin 4.1 Globulin 4.0 Albumin/Globulin Ratio 1.0 L Free T4 TSH 3rd Generation Beta HCG, Quant < 2.39 Urine Color Urine Appearance Urine pH Ur Specific [place] Urine Protein Urine Glucose (UA) Urine Ketones Urine Blood Urine Nitrate Urine Bilirubin Urine Urobilinogen Ur Leukocyte Esterase Urine RBC Urine WBC Ur Epithelial Cells Urine Bacteria Influenza Typ A,B (EIA) 04/30/18 05/01/18 05/01/18 19:00 05:36 07:00 WBC 7.1 D RBC 4.88 Hgb 11.4 L Hct 36.6 MCV 75.0 L MCH 23.4 L MCHC 31.1 RDW 12.7 Plt Count 239 MPV 9.4 Neut % (Auto) 51.6 Lymph % (Auto) 39.0 H [place] % (Auto) 7.4 H Eos % (Auto) 1.7 Baso % (Auto) 0.3 Lymph # (Auto) 2.8 [place] # (Auto) 0.5 Eos # (Auto) 0.1 Baso # (Auto) 0.02 Absolute Neuts (auto) 3.65 PT INR APTT Sodium Potassium Chloride Carbon Dioxide Anion Gap BUN Creatinine Est GFR ( Amer) Est GFR (Non-Af Amer) Random Glucose Calcium Phosphorus Magnesium Total Bilirubin AST ALT Alkaline Phosphatase Total Protein Albumin Globulin Albumin/Globulin Ratio Free T4 4.52 H TSH 3rd Generation < 0.02 L < 0.02 L Beta HCG, Quant Urine Color Urine Appearance Urine pH Ur Specific [place] Urine Protein Urine Glucose (UA) Urine Ketones Urine Blood Urine Nitrate Urine Bilirubin Urine Urobilinogen Ur Leukocyte Esterase Urine RBC Urine WBC Ur Epithelial Cells Urine Bacteria Influenza Typ A,B (EIA) 05/01/18 07:00 WBC RBC Hgb Hct MCV MCH MCHC RDW Plt Count MPV Neut % (Auto) Lymph % (Auto) [place] % (Auto) Eos % (Auto) Baso % (Auto) Lymph # (Auto) [place] # (Auto) Eos # (Auto) Baso # (Auto) Absolute Neuts (auto) PT INR APTT Sodium 140 Potassium 4.1 Chloride 105 Carbon Dioxide 28 Anion Gap 11 BUN 11 Creatinine 0.3 L Est GFR ( Amer) > 60 Est GFR (Non-Af Amer) > 60 Random Glucose 94 Calcium 9.3 Phosphorus 5.2 H Magnesium 1.9 Total Bilirubin 0.4 AST 27 ALT 18 Alkaline Phosphatase 96 Total Protein 7.3 Albumin 3.4 Globulin 3.9 Albumin/Globulin Ratio 0.9 L Free T4 TSH 3rd Generation Beta HCG, Quant Urine Color Urine Appearance Urine pH Ur Specific [place] Urine Protein Urine Glucose (UA) Urine Ketones Urine Blood Urine Nitrate Urine Bilirubin Urine Urobilinogen Ur Leukocyte Esterase Urine RBC Urine WBC Ur Epithelial Cells Urine Bacteria Influenza Typ A,B (EIA) Assessment & Plan - Assessment and Plan (Free Text) Plan: 1. Headache secondary to aseptic Meningitis - Currently Afebrile, Droplet precautions - Headaches resolved currently - CT head showing sinusitis, edema - Brain MRI without and without contrast pending - ED unable to obtain LP - patient currently refusing LP, amenable to fluoro guided LP (possibly tomorrow) - HSV pending - Acyclovir 500mg Q8H IV - Rocephin - Vanco - f/u cultures - continue to monitor mental status <Byron Maxwell - Last Filed: 05/02/18 18:30> Meds - Medications Medications: Current Medications Acetaminophen (Tylenol 325mg Tab) 650 mg PO Q6H PRN PRN Reason: Pain, moderate (4-7) Last Admin: 05/02/18 04:48 Dose: 650 mg Sodium Chloride (Sodium Chloride 0.9%) 1,000 mls @ 100 mls/hr IV .Q10H MARLON Last Admin: 05/02/18 05:02 Dose: 100 mls/hr Ceftriaxone Sodium (Rocephin 2 Gm Ivpb) 2 gm in 100 mls @ 100 mls/hr IVPB Q12H MARLON; Protocol Stop: 05/08/18 06:01 Last Admin: 05/02/18 05:01 Dose: 100 mls/hr Vancomycin HCl 1.5 gm/ Sodium (Chloride) 500 mls @ 167 mls/hr IVPB Q12H MARLON; Protocol Stop: 05/10/18 10:01 Last Admin: 05/02/18 09:59 Dose: 167 mls/hr Acyclovir 750 mg/ Sodium (Chloride) 100 mls @ 100 mls/hr IV Q8 MARLON; Protocol Stop: 05/08/18 06:01 Last Admin: 05/02/18 18:11 Dose: 100 mls/hr Methimazole (Tapazole) 20 mg PO BID MARLON Last Admin: 05/02/18 18:11 Dose: 20 mg Metoclopramide HCl (Reglan) 5 mg IVP Q6 PRN PRN Reason: Nausea/Vomiting Results - Vital Signs Recent Vital Signs: Last Vital Signs Temp 97.7 F 05/02/18 06:00 Pulse 95 H 05/02/18 06:00 Resp 18 05/02/18 06:00 BP 111/76 05/02/18 06:00 Pulse Ox 95 05/02/18 06:00 - Labs Result Diagrams: 05/02/18 06:50 05/02/18 06:50 Labs: Laboratory Results - last 24 hr 05/01/18 05/02/18 05/02/18 05:53 06:50 06:50 WBC 7.3 RBC 4.69 Hgb 11.2 L Hct 34.8 L MCV 74.2 L MCH 23.9 L MCHC 32.2 RDW 12.5 Plt Count 221 MPV 9.0 Neut % (Auto) 65.1 Lymph % (Auto) 22.2 [place] % (Auto) 11.2 H Eos % (Auto) 1.4 L Baso % (Auto) 0.1 Lymph # (Auto) 1.6 [place] # (Auto) 0.8 H Eos # (Auto) 0.1 Baso # (Auto) 0.01 Absolute Neuts (auto) 4.73 ESR 45 H Sodium 140 Potassium 3.8 Chloride 105 Carbon Dioxide 27 Anion Gap 12 BUN 8 Creatinine 0.3 L Est GFR ( Amer) > 60 Est GFR (Non-Af Amer) > 60 Random Glucose 100 Hemoglobin A1c Calcium 9.4 Phosphorus 5.0 H Magnesium 1.7 Total Bilirubin 0.4 AST 19 ALT 16 Alkaline Phosphatase 93 Total Protein 7.1 Albumin 3.4 Globulin 3.7 Albumin/Globulin Ratio 0.9 L Thyroxine (T4) Total T3 Fluid Type CSF Volume CSF Appearance CSF WBC CSF RBC CSF Total Cell Counted CSF Neutrophils CSF Lymphocytes CSF Monos/Macrophages CSF Comment CSF Glucose CSF Total Protein HIV 1&2 Ag/Ab, 4th Gen Nonreactive 05/02/18 05/02/18 05/02/18 06:50 06:50 15:30 WBC RBC Hgb Hct MCV MCH MCHC RDW Plt Count MPV Neut % (Auto) Lymph % (Auto) [place] % (Auto) Eos % (Auto) Baso % (Auto) Lymph # (Auto) [place] # (Auto) Eos # (Auto) Baso # (Auto) Absolute Neuts (auto) ESR Sodium Potassium Chloride Carbon Dioxide Anion Gap BUN Creatinine Est GFR ( Amer) Est GFR (Non-Af Amer) Random Glucose Hemoglobin A1c 5.2 Calcium Phosphorus Magnesium Total Bilirubin AST ALT Alkaline Phosphatase Total Protein Albumin Globulin Albumin/Globulin Ratio Thyroxine (T4) 19.9 H Total T3 2.54 H Fluid Type CSF Volume CSF Appearance CSF WBC CSF RBC CSF Total Cell Counted CSF Neutrophils CSF Lymphocytes CSF Monos/Macrophages CSF Comment CSF Glucose 50 CSF Total Protein 38.0 HIV 1&2 Ag/Ab, 4th Gen 05/02/18 15:30 WBC RBC Hgb Hct MCV MCH MCHC RDW Plt Count MPV Neut % (Auto) Lymph % (Auto) [place] % (Auto) Eos % (Auto) Baso % (Auto) Lymph # (Auto) [place] # (Auto) Eos # (Auto) Baso # (Auto) Absolute Neuts (auto) ESR Sodium Potassium Chloride Carbon Dioxide Anion Gap BUN Creatinine Est GFR ( Amer) Est GFR (Non-Af Amer) Random Glucose Hemoglobin A1c Calcium Phosphorus Magnesium Total Bilirubin AST ALT Alkaline Phosphatase Total Protein Albumin Globulin Albumin/Globulin Ratio Thyroxine (T4) Total T3 Fluid Type Spinal fluid CSF Volume 4 H CSF Appearance Clear/colorless CSF WBC 279.0 H CSF RBC 3.0 H CSF Total Cell Counted 100 H CSF Neutrophils 1 H CSF Lymphocytes 94.0 H CSF Monos/Macrophages 5 H CSF Comment Colorless CSF Glucose CSF Total Protein HIV 1&2 Ag/Ab, 4th Gen Attending/Attestation - Attestation I have personally seen and examined this patient.: Yes I have fully participated in the care of the patient.: Yes I have reviewed all pertinent clinical information: Yes Notes (Text): I agree with the assessment and plan. Will continue antibiotics per ID and obtain MRI of the brain for evaluation of possible edema. LP will be done under fluoroscopy for CSF analysis.
[2018-05-01] MEDS: Vancomycin 1.5 GM in Sodium Chloride 0.9% 500 ML IVPB SCH ×2 (10:44→21:44)
[2018-05-01] MEDS ORDERED: Apap-Butalbital-Caffeine 325-50-40mg Tab PO STA ×2 (12:30→21:41)
--- NOTE | 2018-05-01 17:03 | CP.PCM.CON ---
<Mc Comer - Last Filed: 05/01/18 16:54> History of Present Illness - History of Present Illness History of Present Illness: Mc Comer D.O. 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 Infectious disease consultation was requested for aseptic meningitis. Patient was seen and examined at bedside. 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 Patient notes a very tight neck and headache although little no to photophobia compared to other episodes. States that she took an acyclovir at home but did not improve. Patient denies any fevers, chills, nausea, vomiting, diarrhea, constipation, lightheadedness, dysuria, sick contacts, or recent travel. Review of Systems - Review of Systems All systems: reviewed and no additional remarkable complaints except (as per HPI) Past Patient History - Infectious Disease Hx of Infectious Diseases: None - Tetanus Immunizations Tetanus Immunization: Unknown - Past Social History Smoking Status: Never Smoked - CARDIAC Hx Cardiac Disorders: No - PULMONARY Hx Respiratory Disorders: No - NEUROLOGICAL Hx Neurological Disorder: Yes Hx Meningitis: Yes (viral) Hx Migraine: Yes - HEENT Hx HEENT Problems: Yes Other/Comment: s/p adenoidectomy - RENAL Hx Chronic Kidney Disease: No - ENDOCRINE/METABOLIC Hx Endocrine Disorders: No - HEMATOLOGICAL/ONCOLOGICAL Hx Blood Disorders: No - INTEGUMENTARY Hx Dermatological Problems: No - MUSCULOSKELETAL/RHEUMATOLOGICAL Hx Musculoskeletal Disorders: No - GASTROINTESTINAL Hx Gastrointestinal Disorders: No - GENITOURINARY/GYNECOLOGICAL Hx Genitourinary Disorders: No - PSYCHIATRIC Hx Psychophysiologic Disorder: No Hx Substance Use: No - SURGICAL HISTORY Hx Section: Yes (x2) Hx Tonsillectomy: Yes Other/Comment: nose surgery 2 weeks ago - ANESTHESIA Hx Anesthesia: Yes Hx Anesthesia Reactions: No Hx Malignant Hyperthermia: No Meds Allergies/Adverse Reactions: Allergies Allergy/AdvReac Type Severity Reaction Status Date / Time ibuprofen Allergy ANAPHYLAXIS Verified 04/30/18 18:03 - Medications Medications: Current Medications Acetaminophen (Tylenol 325mg Tab) 650 mg PO Q6H PRN PRN Reason: Pain, moderate (4-7) Last Admin: 05/01/18 08:36 Dose: 650 mg Sodium Chloride (Sodium Chloride 0.9%) 1,000 mls @ 100 mls/hr IV .Q10H [facility]ON Last Admin: 05/01/18 00:26 Dose: 100 mls/hr Ceftriaxone Sodium (Rocephin 2 Gm Ivpb) 2 gm in 100 mls @ 100 mls/hr IVPB Q12H [facility]ON; Protocol Stop: 05/08/18 06:01 Last Admin: 05/01/18 06:30 Dose: 100 mls/hr Vancomycin HCl 1.5 gm/ Sodium (Chloride) 500 mls @ 167 mls/hr IVPB Q12H [facility]ON; Protocol Stop: 05/10/18 10:01 Last Admin: 05/01/18 10:44 Dose: 167 mls/hr Acyclovir 750 mg/ Sodium (Chloride) 100 mls @ 100 mls/hr IV Q8 [facility]LON; Protocol Stop: 05/08/18 06:01 Last Admin: 05/01/18 15:49 Dose: 100 mls/hr Methimazole (Tapazole) 10 mg PO BID [facility]LON Metoclopramide HCl (Reglan) 5 mg IVP Q6 PRN PRN Reason: Nausea/Vomiting Physical Exam - Constitutional Appears: Non-toxic, No Acute Distress - Head Exam Head Exam: NORMOCEPHALIC - Eye Exam Eye Exam: absent: Scleral icterus - Neck Exam Additional comments: mild nuchal rigidity - Respiratory Exam Respiratory Exam: Clear to Auscultation Bilateral. absent: Rales, Rhonchi, Wheezes - Cardiovascular Exam Cardiovascular Exam: +S1, +S2 - GI/Abdominal Exam GI & Abdominal Exam: Normal Bowel Sounds, Soft. absent: Distended - Extremities Exam Extremities exam: Positive for: normal inspection - Neurological Exam Neurological exam: Alert, Oriented x3 - Psychiatric Exam Psychiatric exam: Normal Affect - Skin Skin Exam: Dry, Warm Results - Vital Signs Recent Vital Signs: Last Vital Signs Temp 99.1 F 05/01/18 14:00 Pulse 76 05/01/18 14:00 Resp 16 05/01/18 14:00 BP 139/84 05/01/18 14:00 Pulse Ox 97 05/01/18 14:00 - Labs Result Diagrams: 05/01/18 07:00 05/01/18 07:00 Labs: Laboratory Results - last 24 hr 04/30/18 04/30/18 04/30/18 17:15 17:15 19:00 WBC 9.8 RBC 5.19 Hgb 12.4 Hct 38.6 MCV 74.4 L MCH 23.9 L MCHC 32.1 RDW 12.6 Plt Count 278 MPV 9.5 Neut % (Auto) 60.6 Lymph % (Auto) 31.5 [place] % (Auto) 6.7 H Eos % (Auto) 0.9 L Baso % (Auto) 0.3 Lymph # (Auto) 3.1 [place] # (Auto) 0.7 H Eos # (Auto) 0.1 Baso # (Auto) 0.03 Absolute Neuts (auto) 5.96 PT INR APTT Sodium Potassium Chloride Carbon Dioxide Anion Gap BUN Creatinine Est GFR ( Amer) Est GFR (Non-Af Amer) Random Glucose Calcium Phosphorus Magnesium Total Bilirubin AST ALT Alkaline Phosphatase Total Protein Albumin Globulin Albumin/Globulin Ratio Procalcitonin Free T4 Free T3 pg/mL TSH 3rd Generation Beta HCG, Quant Urine Color Yellow Urine Appearance Sl cloudy Urine pH 7.5 Ur Specific [place] 1.020 Urine Protein 30 H Urine Glucose (UA) Negative Urine Ketones Negative Urine Blood Negative Urine Nitrate Negative Urine Bilirubin Negative Urine Urobilinogen 0.2 Ur Leukocyte Esterase Negative Urine RBC None Urine WBC 1 - 3 Ur Epithelial Cells 6 - 8 H Urine Bacteria Mod Influenza Typ A,B (EIA) Negative for flu a/b 04/30/18 04/30/18 04/30/18 19:00 19:00 19:00 WBC RBC Hgb Hct MCV MCH MCHC RDW Plt Count MPV Neut % (Auto) Lymph % (Auto) [place] % (Auto) Eos % (Auto) Baso % (Auto) Lymph # (Auto) [place] # (Auto) Eos # (Auto) Baso # (Auto) Absolute Neuts (auto) PT 12.9 H INR 1.16 APTT 45.7 H Sodium 140 Potassium 3.9 Chloride 104 Carbon Dioxide 27 Anion Gap 13 BUN 14 Creatinine 0.3 L Est GFR ( Amer) > 60 Est GFR (Non-Af Amer) > 60 Random Glucose 119 H Calcium 9.7 Phosphorus Magnesium 1.9 Total Bilirubin 0.3 AST 27 ALT 13 Alkaline Phosphatase 120 Total Protein 8.1 Albumin 4.1 Globulin 4.0 Albumin/Globulin Ratio 1.0 L Procalcitonin Free T4 Free T3 pg/mL TSH 3rd Generation Beta HCG, Quant < 2.39 Urine Color Urine Appearance Urine pH Ur Specific [place] Urine Protein Urine Glucose (UA) Urine Ketones Urine Blood Urine Nitrate Urine Bilirubin Urine Urobilinogen Ur Leukocyte Esterase Urine RBC Urine WBC Ur Epithelial Cells Urine Bacteria Influenza Typ A,B (EIA) 04/30/18 05/01/18 05/01/18 19:00 05:36 05:53 WBC RBC Hgb Hct MCV MCH MCHC RDW Plt Count MPV Neut % (Auto) Lymph % (Auto) [place] % (Auto) Eos % (Auto) Baso % (Auto) Lymph # (Auto) [place] # (Auto) Eos # (Auto) Baso # (Auto) Absolute Neuts (auto) PT INR APTT Sodium Potassium Chloride Carbon Dioxide Anion Gap BUN Creatinine Est GFR ( Amer) Est GFR (Non-Af Amer) Random Glucose Calcium Phosphorus Magnesium Total Bilirubin AST ALT Alkaline Phosphatase Total Protein Albumin Globulin Albumin/Globulin Ratio Procalcitonin < 0.05 L Free T4 4.52 H Free T3 pg/mL TSH 3rd Generation < 0.02 L < 0.02 L Beta HCG, Quant Urine Color Urine Appearance Urine pH Ur Specific [place] Urine Protein Urine Glucose (UA) Urine Ketones Urine Blood Urine Nitrate Urine Bilirubin Urine Urobilinogen Ur Leukocyte Esterase Urine RBC Urine WBC Ur Epithelial Cells Urine Bacteria Influenza Typ A,B (EIA) 05/01/18 05/01/18 05/01/18 07:00 07:00 08:28 WBC 7.1 D RBC 4.88 Hgb 11.4 L Hct 36.6 MCV 75.0 L MCH 23.4 L MCHC 31.1 RDW 12.7 Plt Count 239 MPV 9.4 Neut % (Auto) 51.6 Lymph % (Auto) 39.0 H [place] % (Auto) 7.4 H Eos % (Auto) 1.7 Baso % (Auto) 0.3 Lymph # (Auto) 2.8 [place] # (Auto) 0.5 Eos # (Auto) 0.1 Baso # (Auto) 0.02 Absolute Neuts (auto) 3.65 PT INR APTT Sodium 140 Potassium 4.1 Chloride 105 Carbon Dioxide 28 Anion Gap 11 BUN 11 Creatinine 0.3 L Est GFR ( Amer) > 60 Est GFR (Non-Af Amer) > 60 Random Glucose 94 Calcium 9.3 Phosphorus 5.2 H Magnesium 1.9 Total Bilirubin 0.4 AST 27 ALT 18 Alkaline Phosphatase 96 Total Protein 7.3 Albumin 3.4 Globulin 3.9 Albumin/Globulin Ratio 0.9 L Procalcitonin Free T4 Free T3 pg/mL 16.90 H TSH 3rd Generation Beta HCG, Quant Urine Color Urine Appearance Urine pH Ur Specific [place] Urine Protein Urine Glucose (UA) Urine Ketones Urine Blood Urine Nitrate Urine Bilirubin Urine Urobilinogen Ur Leukocyte Esterase Urine RBC Urine WBC Ur Epithelial Cells Urine Bacteria Influenza Typ A,B (EIA) Assessment & Plan - Assessment and Plan (Free Text) Assessment: 27 year old female with a 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 Infectious disease consultation was requested for aseptic meningitis. Plan: Headache and neck pain with likely aseptic meningitis Hyperthyroidism Head CT reviewed, showing chronic changes Afebrile No leukocytosis Neurology consulted, will benefit from lumbar tap to evaluate for other potential etiologies HIV ordered BCx ordered UCx ordered MRI brain pending Empirically on acyclovir/ceftriaxone/vancomycin We will monitor closely with you Patient was seen and examined and case to be discussed with attending physician Thank you for the pleasure of participating in the care of this interesting patient - Date & Time Date: 05/01/18 Time: 07:55 <Blas Block - Last Filed: 05/01/18 19:59> Meds - Medications Medications: Current Medications Acetaminophen (Tylenol 325mg Tab) 650 mg PO Q6H PRN PRN Reason: Pain, moderate (4-7) Last Admin: 05/01/18 08:36 Dose: 650 mg Sodium Chloride (Sodium Chloride 0.9%) 1,000 mls @ 100 mls/hr IV .Q10H [facility]ON Last Admin: 05/01/18 00:26 Dose: 100 mls/hr Ceftriaxone Sodium (Rocephin 2 Gm Ivpb) 2 gm in 100 mls @ 100 mls/hr IVPB Q12H [facility]ON; Protocol Stop: 05/08/18 06:01 Last Admin: 05/01/18 06:30 Dose: 100 mls/hr Vancomycin HCl 1.5 gm/ Sodium (Chloride) 500 mls @ 167 mls/hr IVPB Q12H [facility]ON; Protocol Stop: 05/10/18 10:01 Last Admin: 05/01/18 10:44 Dose: 167 mls/hr Acyclovir 750 mg/ Sodium (Chloride) 100 mls @ 100 mls/hr IV Q8 [facility]LON; Protocol Stop: 05/08/18 06:01 Last Admin: 05/01/18 15:49 Dose: 100 mls/hr Methimazole (Tapazole) 10 mg PO BID [facility] Metoclopramide HCl (Reglan) 5 mg IVP Q6 PRN PRN Reason: Nausea/Vomiting Results - Vital Signs Recent Vital Signs: Last Vital Signs Temp 99.1 F 05/01/18 14:00 Pulse 76 05/01/18 14:00 Resp 16 05/01/18 14:00 BP 139/84 05/01/18 14:00 Pulse Ox 97 05/01/18 14:00 - Labs Result Diagrams: 05/01/18 07:00 05/01/18 07:00 Labs: Laboratory Results - last 24 hr 04/30/18 04/30/18 04/30/18 17:15 17:15 19:00 WBC 9.8 RBC 5.19 Hgb 12.4 Hct 38.6 MCV 74.4 L MCH 23.9 L MCHC 32.1 RDW 12.6 Plt Count 278 MPV 9.5 Neut % (Auto) 60.6 Lymph % (Auto) 31.5 [place] % (Auto) 6.7 H Eos % (Auto) 0.9 L Baso % (Auto) 0.3 Lymph # (Auto) 3.1 [place] # (Auto) 0.7 H Eos # (Auto) 0.1 Baso # (Auto) 0.03 Absolute Neuts (auto) 5.96 PT INR APTT Sodium Potassium Chloride Carbon Dioxide Anion Gap BUN Creatinine Est GFR ( Amer) Est GFR (Non-Af Amer) Random Glucose Calcium Phosphorus Magnesium Total Bilirubin AST ALT Alkaline Phosphatase Total Protein Albumin Globulin Albumin/Globulin Ratio Procalcitonin Free T4 Free T3 pg/mL TSH 3rd Generation Beta HCG, Quant Urine Color Yellow Urine Appearance Sl cloudy Urine pH 7.5 Ur Specific [place] 1.020 Urine Protein 30 H Urine Glucose (UA) Negative Urine Ketones Negative Urine Blood Negative Urine Nitrate Negative Urine Bilirubin Negative Urine Urobilinogen 0.2 Ur Leukocyte Esterase Negative Urine RBC None Urine WBC 1 - 3 Ur Epithelial Cells 6 - 8 H Urine Bacteria Mod Influenza Typ A,B (EIA) Negative for flu a/b 04/30/18 04/30/18 04/30/18 19:00 19:00 19:00 WBC RBC Hgb Hct MCV MCH MCHC RDW Plt Count MPV Neut % (Auto) Lymph % (Auto) [place] % (Auto) Eos % (Auto) Baso % (Auto) Lymph # (Auto) [place] # (Auto) Eos # (Auto) Baso # (Auto) Absolute Neuts (auto) PT 12.9 H INR 1.16 APTT 45.7 H Sodium 140 Potassium 3.9 Chloride 104 Carbon Dioxide 27 Anion Gap 13 BUN 14 Creatinine 0.3 L Est GFR ( Amer) > 60 Est GFR (Non-Af Amer) > 60 Random Glucose 119 H Calcium 9.7 Phosphorus Magnesium 1.9 Total Bilirubin 0.3 AST 27 ALT 13 Alkaline Phosphatase 120 Total Protein 8.1 Albumin 4.1 Globulin 4.0 Albumin/Globulin Ratio 1.0 L Procalcitonin Free T4 Free T3 pg/mL TSH 3rd Generation Beta HCG, Quant < 2.39 Urine Color Urine Appearance Urine pH Ur Specific [place] Urine Protein Urine Glucose (UA) Urine Ketones Urine Blood Urine Nitrate Urine Bilirubin Urine Urobilinogen Ur Leukocyte Esterase Urine RBC Urine WBC Ur Epithelial Cells Urine Bacteria Influenza Typ A,B (EIA) 04/30/18 05/01/18 05/01/18 19:00 05:36 05:53 WBC RBC Hgb Hct MCV MCH MCHC RDW Plt Count MPV Neut % (Auto) Lymph % (Auto) [place] % (Auto) Eos % (Auto) Baso % (Auto) Lymph # (Auto) [place] # (Auto) Eos # (Auto) Baso # (Auto) Absolute Neuts (auto) PT INR APTT Sodium Potassium Chloride Carbon Dioxide Anion Gap BUN Creatinine Est GFR ( Amer) Est GFR (Non-Af Amer) Random Glucose Calcium Phosphorus Magnesium Total Bilirubin AST ALT Alkaline Phosphatase Total Protein Albumin Globulin Albumin/Globulin Ratio Procalcitonin < 0.05 L Free T4 4.52 H Free T3 pg/mL TSH 3rd Generation < 0.02 L < 0.02 L Beta HCG, Quant Urine Color Urine Appearance Urine pH Ur Specific [place] Urine Protein Urine Glucose (UA) Urine Ketones Urine Blood Urine Nitrate Urine Bilirubin Urine Urobilinogen Ur Leukocyte Esterase Urine RBC Urine WBC Ur Epithelial Cells Urine Bacteria Influenza Typ A,B (EIA) 05/01/18 05/01/18 05/01/18 07:00 07:00 08:28 WBC 7.1 D RBC 4.88 Hgb 11.4 L Hct 36.6 MCV 75.0 L MCH 23.4 L MCHC 31.1 RDW 12.7 Plt Count 239 MPV 9.4 Neut % (Auto) 51.6 Lymph % (Auto) 39.0 H [place] % (Auto) 7.4 H Eos % (Auto) 1.7 Baso % (Auto) 0.3 Lymph # (Auto) 2.8 [place] # (Auto) 0.5 Eos # (Auto) 0.1 Baso # (Auto) 0.02 Absolute Neuts (auto) 3.65 PT INR APTT Sodium 140 Potassium 4.1 Chloride 105 Carbon Dioxide 28 Anion Gap 11 BUN 11 Creatinine 0.3 L Est GFR ( Amer) > 60 Est GFR (Non-Af Amer) > 60 Random Glucose 94 Calcium 9.3 Phosphorus 5.2 H Magnesium 1.9 Total Bilirubin 0.4 AST 27 ALT 18 Alkaline Phosphatase 96 Total Protein 7.3 Albumin 3.4 Globulin 3.9 Albumin/Globulin Ratio 0.9 L Procalcitonin Free T4 Free T3 pg/mL 16.90 H TSH 3rd Generation Beta HCG, Quant Urine Color Urine Appearance Urine pH Ur Specific [place] Urine Protein Urine Glucose (UA) Urine Ketones Urine Blood Urine Nitrate Urine Bilirubin Urine Urobilinogen Ur Leukocyte Esterase Urine RBC Urine WBC Ur Epithelial Cells Urine Bacteria Influenza Typ A,B (EIA) Attending/Attestation - Attestation I have personally seen and examined this patient.: Yes I have fully participated in the care of the patient.: Yes I have reviewed all pertinent clinical information: Yes
[2018-05-02] MEDS: cefTRIAXone 2 GM IN NS 2 GM/100 ML BAG IVPB SCH ×2 (05:01→19:22)
[2018-05-02] MEDS: Sodium Chloride 0.9% 1,000 ML IV SCH (05:02)
[2018-05-02] MEDS ORDERED: Apap-Butalbital-Caffeine 325-50-40mg Tab PO STA (05:08)
[2018-05-02 07:04] LABS: BASO # 0.01 K/mm3 (0.0-2.0); BASO % 0.1 % (0.0-3.0); EOS # 0.1 (0.0-0.7); EOS % 1.4 % (1.5-5.0); HEMOGLOBIN 11.2 g/dL (12.0-16.0); LYMPH # 1.6 (1.2-3.4); LYMPH % 22.2 % (22.0-35.0); MEAN CELL VOLUME 74.2 fl (80.0-105.0); MEAN CORPUSCULAR HEMOGLOBIN 23.9 pg (25.0-35.0); MEAN CORPUSCULAR HGB CONC 32.2 g/dl (31.0-37.0); MONO # 0.8 (0.1-0.6); MONO % 11.2 % (1.0-6.0); RBC 4.69 10^6/uL (3.5-6.1); RED CELL DISTRIBUTION WIDTH 12.5 % (11.5-14.5); WHITE BLOOD COUNT 7.3 10^3/uL (4.5-11.0)
[2018-05-02 07:31] LABS: ALB/GLOB RATIO 0.9 (1.1-1.8); ALBUMIN 3.4 g/dL (3.0-4.8); ALT/SGPT 16 U/L (7-56); AST/SGOT 19 U/L (14-36); BLOOD UREA NITROGEN 8 mg/dL (7-21); CALCIUM 9.4 mg/dL (8.4-10.5); GFR NON-AFRICAN AMERICAN > 60
[2018-05-02 07:45] LABS: T3 2.54 ng/mL (0.97-1.69)
[2018-05-02] MEDS: Vancomycin 1.5 GM in Sodium Chloride 0.9% 500 ML IVPB SCH ×2 (09:59→21:25)
[2018-05-02] MEDS ORDERED: Divalproex 500 mg DR(BID formulation) PO ONE (10:44)
[2018-05-02] MEDS ORDERED: Magnesium Sulfate 2 gm/50 ml 2 GM/50 ML BAG IVPB ONE (10:45)
--- NOTE | 2018-05-02 10:48 | CP.PCM.PN ---
<Juan Conroy - Last Filed: 05/02/18 14:37> Subjective - Date & Time of Evaluation Date of Evaluation: 05/02/18 Time of Evaluation: 06:00 - Subjective Subjective: Patient seen and evaluated bedside. No acute issues overnight. Patient complaining of headache still. Denies any nausea, vomiting, fever, chills, vision change or any other symptoms. Objective - Vital Signs/Intake and Output Vital Signs (last 24 hours): Temp Pulse Resp BP Pulse Ox 97.7 F 95 H 18 111/76 95 05/02/18 06:00 05/02/18 06:00 05/02/18 06:00 05/02/18 06:00 05/02/18 06:00 Intake and Output: 05/02/18 05/02/18 06:59 18:59 Intake Total 360 Balance 360 - Medications Medications: Current Medications Acetaminophen (Tylenol 325mg Tab) 650 mg PO Q6H PRN PRN Reason: Pain, moderate (4-7) Last Admin: 05/02/18 04:48 Dose: 650 mg Sodium Chloride (Sodium Chloride 0.9%) 1,000 mls @ 100 mls/hr IV .Q10H [facility]ON Last Admin: 05/02/18 05:02 Dose: 100 mls/hr Ceftriaxone Sodium (Rocephin 2 Gm Ivpb) 2 gm in 100 mls @ 100 mls/hr IVPB Q12H [facility]ON; Protocol Stop: 05/08/18 06:01 Last Admin: 05/02/18 05:01 Dose: 100 mls/hr Vancomycin HCl 1.5 gm/ Sodium (Chloride) 500 mls @ 167 mls/hr IVPB Q12H [facility]ON; Protocol Stop: 05/10/18 10:01 Last Admin: 05/02/18 09:59 Dose: 167 mls/hr Acyclovir 750 mg/ Sodium (Chloride) 100 mls @ 100 mls/hr IV Q8 [facility]ON; Protocol Stop: 05/08/18 06:01 Last Admin: 05/02/18 05:01 Dose: 100 mls/hr Magnesium Sulfate (Magnesium Sulfate 2 Gm/50 Ml Water) 2 gm in 50 mls @ 50 mls/hr IVPB ONCE ONE Stop: 05/02/18 11:44 Methimazole (Tapazole) 10 mg PO BID [facility]ON Last Admin: 05/02/18 09:59 Dose: 10 mg Metoclopramide HCl (Reglan) 5 mg IVP Q6 PRN PRN Reason: Nausea/Vomiting - Labs Labs: 05/02/18 06:50 05/02/18 06:50 PT 12.9 SECONDS (9.4-12.5) H 04/30/18 19:00 INR 1.16 04/30/18 19:00 APTT 45.7 Seconds (26.9-38.3) H 04/30/18 19:00 - Constitutional Appears: No Acute Distress - Head Exam Head Exam: ATRAUMATIC, NORMAL INSPECTION, NORMOCEPHALIC - Eye Exam Eye Exam: EOMI, Normal appearance - ENT Exam ENT Exam: Mucous Membranes Moist - Respiratory Exam Respiratory Exam: Clear to Ausculation Bilateral, NORMAL BREATHING PATTERN - Cardiovascular Exam Cardiovascular Exam: REGULAR RHYTHM - Extremities Exam Extremities Exam: Full ROM - Neurological Exam Neurological Exam: Alert, Awake, CN II-XII Intact, Oriented x3 Neuro motor strength exam: Left Upper Extremity: 5, Right Upper Extremity: 5, Left Lower Extremity: 5, Right Lower Extremity: 5 Assessment and Plan - Assessment and Plan (Free Text) Plan: 1. Headache secondary to aseptic Meningitis - Currently Afebrile, Droplet precautions - Depakote, 2g IV Mag Sulfate, Decadron 10mg IV - CT head showing sinusitis, edema - Brain MRI without and without contrast pending - ED unable to obtain LP - patient refused standard LP, amenable to fluoro guided LP which will be done today - HSV pending - Acyclovir 500mg Q8H IV - Rocephin - Vanco - f/u cultures - continue to monitor mental status <Byron Maxwell - Last Filed: 05/02/18 18:32> Objective - Vital Signs/Intake and Output Vital Signs (last 24 hours): Temp Pulse Resp BP Pulse Ox 97.7 F 95 H 18 111/76 95 05/02/18 06:00 05/02/18 06:00 05/02/18 06:00 05/02/18 06:00 05/02/18 06:00 Intake and Output: 05/02/18 05/02/18 06:59 18:59 Intake Total 360 Balance 360 - Medications Medications: Current Medications Acetaminophen (Tylenol 325mg Tab) 650 mg PO Q6H PRN PRN Reason: Pain, moderate (4-7) Last Admin: 05/02/18 04:48 Dose: 650 mg Sodium Chloride (Sodium Chloride 0.9%) 1,000 mls @ 100 mls/hr IV .Q10H [facility] Last Admin: 05/02/18 05:02 Dose: 100 mls/hr Ceftriaxone Sodium (Rocephin 2 Gm Ivpb) 2 gm in 100 mls @ 100 mls/hr IVPB Q12H [facility]; Protocol Stop: 05/08/18 06:01 Last Admin: 05/02/18 05:01 Dose: 100 mls/hr Vancomycin HCl 1.5 gm/ Sodium (Chloride) 500 mls @ 167 mls/hr IVPB Q12H [facility]; Protocol Stop: 05/10/18 10:01 Last Admin: 05/02/18 09:59 Dose: 167 mls/hr Acyclovir 750 mg/ Sodium (Chloride) 100 mls @ 100 mls/hr IV Q8 [facility]ON; Protocol Stop: 05/08/18 06:01 Last Admin: 05/02/18 18:11 Dose: 100 mls/hr Methimazole (Tapazole) 20 mg PO BID [facility]ON Last Admin: 05/02/18 18:11 Dose: 20 mg Metoclopramide HCl (Reglan) 5 mg IVP Q6 PRN PRN Reason: Nausea/Vomiting - Labs Labs: 05/02/18 06:50 05/02/18 06:50 PT 12.9 SECONDS (9.4-12.5) H 04/30/18 19:00 INR 1.16 04/30/18 19:00 APTT 45.7 Seconds (26.9-38.3) H 04/30/18 19:00 Attending/Attestation - Attestation I have personally seen and examined this patient.: Yes I have fully participated in the care of the patient.: Yes I have reviewed all pertinent clinical information, including history, physical exam and plan: Yes Notes (Text): I agree with the assessment and plan. The patient complains of headache. Will treat with depakote 500 mg, decadron 10 mg and magnesium sulfate 2 grams IV. Will follow MRI and LP results.
--- NOTE | 2018-05-02 11:31 | CP.PCM.PN ---
<Mc Comer - Last Filed: 05/02/18 11:28> Subjective - Date & Time of Evaluation Date of Evaluation: 05/02/18 Time of Evaluation: 08:00 - Subjective Subjective: Mc Comer D.O. 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 Infectious disease consultation was requested for aseptic meningitis. Patient was seen and examined at bedside. Feeling better. More comfortable. Objective - Vital Signs/Intake and Output Vital Signs (last 24 hours): Temp Pulse Resp BP Pulse Ox 97.7 F 95 H 18 111/76 95 05/02/18 06:00 05/02/18 06:00 05/02/18 06:00 05/02/18 06:00 05/02/18 06:00 Intake and Output: 05/02/18 05/02/18 06:59 18:59 Intake Total 360 Balance 360 - Medications Medications: Current Medications Acetaminophen (Tylenol 325mg Tab) 650 mg PO Q6H PRN PRN Reason: Pain, moderate (4-7) Last Admin: 05/02/18 04:48 Dose: 650 mg Sodium Chloride (Sodium Chloride 0.9%) 1,000 mls @ 100 mls/hr IV .Q10H MARLON Last Admin: 05/02/18 05:02 Dose: 100 mls/hr Ceftriaxone Sodium (Rocephin 2 Gm Ivpb) 2 gm in 100 mls @ 100 mls/hr IVPB Q12H MARLON; Protocol Stop: 05/08/18 06:01 Last Admin: 05/02/18 05:01 Dose: 100 mls/hr Vancomycin HCl 1.5 gm/ Sodium (Chloride) 500 mls @ 167 mls/hr IVPB Q12H MARLON; Protocol Stop: 05/10/18 10:01 Last Admin: 05/02/18 09:59 Dose: 167 mls/hr Acyclovir 750 mg/ Sodium (Chloride) 100 mls @ 100 mls/hr IV Q8 MARLON; Protocol Stop: 05/08/18 06:01 Last Admin: 05/02/18 05:01 Dose: 100 mls/hr Magnesium Sulfate (Magnesium Sulfate 2 Gm/50 Ml Water) 2 gm in 50 mls @ 50 mls/hr IVPB ONCE ONE Stop: 05/02/18 11:44 Methimazole (Tapazole) 10 mg PO BID MARLON Last Admin: 05/02/18 09:59 Dose: 10 mg Metoclopramide HCl (Reglan) 5 mg IVP Q6 PRN PRN Reason: Nausea/Vomiting - Labs Labs: 05/02/18 06:50 05/02/18 06:50 PT 12.9 SECONDS (9.4-12.5) H 04/30/18 19:00 INR 1.16 04/30/18 19:00 APTT 45.7 Seconds (26.9-38.3) H 04/30/18 19:00 - Constitutional Appears: Non-toxic, No Acute Distress - Head Exam Head Exam: NORMOCEPHALIC - Eye Exam Eye Exam: absent: Scleral icterus - Neck Exam Additional comments: soft, supple - Respiratory Exam Respiratory Exam: Clear to Auscultation Bilateral. absent: Rales, Rhonchi, Wheezes - Cardiovascular Exam Cardiovascular Exam: +S1, +S2 - GI/Abdominal Exam GI & Abdominal Exam: Normal Bowel Sounds, Soft. 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 Infectious disease consultation was requested for aseptic meningitis. Plan: Headache and neck pain with likely aseptic meningitis Hyperthyroidism Afebrile No leukocytosis HIV pending Flu negative BCx negative 2/2 day 1 UCx pending MRI brain pending Continue acyclovir/ceftriaxone/vancomycin day 2 Plan for lumbar tap with radiology today We will follow with you Patient was seen and examined and case to be discussed with attending physician Thank you for the pleasure of participating in the care of this interesting patient <Demario Avila - Last Filed: 05/02/18 22:16> Objective - Vital Signs/Intake and Output Vital Signs (last 24 hours): Temp Pulse Resp BP Pulse Ox 97.7 F 95 H 18 111/76 95 05/02/18 06:00 05/02/18 06:00 05/02/18 06:00 05/02/18 06:00 05/02/18 06:00 Intake and Output: 05/02/18 05/03/18 18:59 06:59 Output Total 1 Balance -1 - Medications Medications: Current Medications Acetaminophen (Tylenol 325mg Tab) 650 mg PO Q6H PRN PRN Reason: Pain, moderate (4-7) Last Admin: 05/02/18 04:48 Dose: 650 mg Sodium Chloride (Sodium Chloride 0.9%) 1,000 mls @ 100 mls/hr IV .Q10H MARLON Last Admin: 05/02/18 05:02 Dose: 100 mls/hr Ceftriaxone Sodium (Rocephin 2 Gm Ivpb) 2 gm in 100 mls @ 100 mls/hr IVPB Q12H MARLON; Protocol Stop: 05/08/18 06:01 Last Admin: 05/02/18 19:22 Dose: 100 mls/hr Vancomycin HCl 1.5 gm/ Sodium (Chloride) 500 mls @ 167 mls/hr IVPB Q12H MARLON; Protocol Stop: 05/10/18 10:01 Last Admin: 05/02/18 21:25 Dose: 167 mls/hr Acyclovir 750 mg/ Sodium (Chloride) 100 mls @ 100 mls/hr IV Q8 MARLON; Protocol Stop: 05/08/18 06:01 Last Admin: 05/02/18 21:25 Dose: 100 mls/hr Methimazole (Tapazole) 20 mg PO BID MARLON Last Admin: 05/02/18 18:11 Dose: 20 mg Metoclopramide HCl (Reglan) 5 mg IVP Q6 PRN PRN Reason: Nausea/Vomiting - Labs Labs: 05/02/18 06:50 05/02/18 06:50 PT 12.9 SECONDS (9.4-12.5) H 04/30/18 19:00 INR 1.16 04/30/18 19:00 APTT 45.7 Seconds (26.9-38.3) H 04/30/18 19:00 Assessment and Plan - Assessment and Plan (Free Text) Plan: Infectious Diseases Attending Physician Attestation Patient seen and examined at bedside, discussed with medical clerical assistant. I have reviewed the HPI, ROS, physical examination findings. I have also reviewed the pertinent labs and diagnostic imaging. I have fully participiated in the care of this patient. I agree with the above findings, assessment, plan. In addition, follow up LP results and will need to continue Vancomycin, Rocephin and Acycl ovir.
--- NOTE | 2018-05-02 14:34 | CP.PCM.PN ---
<Vitaly Mora - Last Filed: 05/02/18 14:30> Subjective - Date & Time of Evaluation Date of Evaluation: 05/02/18 Time of Evaluation: 08:00 - Subjective Subjective: Vitaly Mora, PGY1 Medicine Progress Note for Dr. Marte Patient was seen and examined at bedside this morning. Patient still has headache but says it improves after she gets fiorocet. She also has occasional photophobia. Denies cp, sob, n/v/d, fever, chills, fatigue. No adverse overnight events. She was initially refusing repeat LP with neurological team but agreed to LP by Radiology via fluoroscopy, which is planned for this afternoon. A full 12 point ROS was conducted and unremarkable except as stated above. Objective - Vital Signs/Intake and Output Vital Signs (last 24 hours): Temp Pulse Resp BP Pulse Ox 97.7 F 95 H 18 111/76 95 05/02/18 06:00 05/02/18 06:00 05/02/18 06:00 05/02/18 06:00 05/02/18 06:00 Intake and Output: 05/02/18 05/02/18 06:59 18:59 Intake Total 360 Balance 360 - Medications Medications: Current Medications Acetaminophen (Tylenol 325mg Tab) 650 mg PO Q6H PRN PRN Reason: Pain, moderate (4-7) Last Admin: 05/02/18 04:48 Dose: 650 mg Sodium Chloride (Sodium Chloride 0.9%) 1,000 mls @ 100 mls/hr IV .Q10H MARLON Last Admin: 05/02/18 05:02 Dose: 100 mls/hr Ceftriaxone Sodium (Rocephin 2 Gm Ivpb) 2 gm in 100 mls @ 100 mls/hr IVPB Q12H MARLON; Protocol Stop: 05/08/18 06:01 Last Admin: 05/02/18 05:01 Dose: 100 mls/hr Vancomycin HCl 1.5 gm/ Sodium (Chloride) 500 mls @ 167 mls/hr IVPB Q12H MARLON; Protocol Stop: 05/10/18 10:01 Last Admin: 05/02/18 09:59 Dose: 167 mls/hr Acyclovir 750 mg/ Sodium (Chloride) 100 mls @ 100 mls/hr IV Q8 MARLON; Protocol Stop: 05/08/18 06:01 Last Admin: 05/02/18 05:01 Dose: 100 mls/hr Methimazole (Tapazole) 20 mg PO BID MARLON Metoclopramide HCl (Reglan) 5 mg IVP Q6 PRN PRN Reason: Nausea/Vomiting - Labs Labs: 05/02/18 06:50 05/02/18 06:50 PT 12.9 SECONDS (9.4-12.5) H 04/30/18 19:00 INR 1.16 04/30/18 19:00 APTT 45.7 Seconds (26.9-38.3) H 04/30/18 19:00 - Constitutional Appears: Non-toxic, No Acute Distress - Head Exam Head Exam: NORMOCEPHALIC - Eye Exam Eye Exam: absent: Scleral icterus - Neck Exam Additional comments: soft, supple - Respiratory Exam Respiratory Exam: Clear to Auscultation Bilateral. absent: Rales, Rhonchi, Wheezes - Cardiovascular Exam Cardiovascular Exam: +S1, +S2 - GI/Abdominal Exam GI & Abdominal Exam: Normal Bowel Sounds, Soft. absent: Distended - Extremities Exam Extremities exam: Positive for: normal inspection - Neurological Exam Neurological exam: Alert, Oriented x3 - Psychiatric Exam Psychiatric exam: Normal Affect - Skin Skin Exam: Dry, Warm Assessment and Plan - Assessment and Plan (Free Text) Assessment: Patient is a 27 year old female with a PMH of HSV2 meningitis with recurrence of aseptic meningitis who presented [place] [facility] [place] complaints of a throbbing headache with neck pain. Patient admitted to med/surg for headache and neck pain likely due to aseptic meningitis. Plan: Headache and Neck Pain 2/2 Aseptic Meningitis - c/w acyclovir/ceftriaxone/vancomycin (Day 2) - Plan for LP with radiology today - As per neuro, cocktail ordered for headache: depakote, mag sulfate, decadron - MRI brain pending - HIV pending - Flu negative - BCx negative x2 day 1 - UCx negative - procal negative - c/w seizure precautions - Neurology is on board (Dr. Maxwell). Recs appreciated - ID is on board (Dr. Avila). Recs appreciated - CT head showing sinusitis, cerebral edema is in consideration Hyperthyroidism - resume home medications - methimazole 10 mg, 2 tablets in AM and 2 tablets in PM (home dosage) DVT/GI ppx: not indicated Diet: HHD Dispo: Monitor on med/surg. Continue droplet precautions. Pending LP and further recs from neuro. Case was discussed and reviewed with Attending Physician, Dr. Marte <Noemy Marte - Last Filed: 05/02/18 18:25> Objective - Vital Signs/Intake and Output Vital Signs (last 24 hours): Temp Pulse Resp BP Pulse Ox 97.7 F 95 H 18 111/76 95 05/02/18 06:00 05/02/18 06:00 05/02/18 06:00 05/02/18 06:00 05/02/18 06:00 Intake and Output: 05/02/18 05/02/18 06:59 18:59 Intake Total 360 Balance 360 - Medications Medications: Current Medications Acetaminophen (Tylenol 325mg Tab) 650 mg PO Q6H PRN PRN Reason: Pain, moderate (4-7) Last Admin: 05/02/18 04:48 Dose: 650 mg Sodium Chloride (Sodium Chloride 0.9%) 1,000 mls @ 100 mls/hr IV .Q10H MARLON Last Admin: 05/02/18 05:02 Dose: 100 mls/hr Ceftriaxone Sodium (Rocephin 2 Gm Ivpb) 2 gm in 100 mls @ 100 mls/hr IVPB Q12H MALRON; Protocol Stop: 05/08/18 06:01 Last Admin: 05/02/18 05:01 Dose: 100 mls/hr Vancomycin HCl 1.5 gm/ Sodium (Chloride) 500 mls @ 167 mls/hr IVPB Q12H MARLON; Protocol Stop: 05/10/18 10:01 Last Admin: 05/02/18 09:59 Dose: 167 mls/hr Acyclovir 750 mg/ Sodium (Chloride) 100 mls @ 100 mls/hr IV Q8 MARLON; Protocol Stop: 05/08/18 06:01 Last Admin: 05/02/18 18:11 Dose: 100 mls/hr Methimazole (Tapazole) 20 mg PO BID MARLON Last Admin: 05/02/18 18:11 Dose: 20 mg Metoclopramide HCl (Reglan) 5 mg IVP Q6 PRN PRN Reason: Nausea/Vomiting - Labs Labs: 05/02/18 06:50 05/02/18 06:50 PT 12.9 SECONDS (9.4-12.5) H 04/30/18 19:00 INR 1.16 04/30/18 19:00 APTT 45.7 Seconds (26.9-38.3) H 04/30/18 19:00 Attending/Attestation - Attestation I have personally seen and examined this patient.: Yes I have fully participated in the care of the patient.: Yes I have reviewed all pertinent clinical information, including history, physical exam and plan: Yes Notes (Text): 05/02/18 18:20 27 year old female with past medical history of meningitis who presented with complaint of headache secondary to suspected recurrent meningitis. S/p failed attempt of LP in ER. Plan is for fluoroscopic LP today. Patient is vancomycin, ceftriaxone and acyclovir. ID and neurology are following the patient. MRI brain is also pending. Patient is on methimazole for hyperthyroidism. Noemy Marte MD Hospitalist.
[2018-05-02 15:35] LABS: FLUID TYPE SPINAL FLUID
--- NOTE | 2018-05-02 16:10 | RAD ---
Date of service: 05/02/2018 PROCEDURE: Fluoro guided lumbar puncture HISTORY: aseptic meningitis COMPARISON: TECHNIQUE: Informed consent was obtained. The lower back was sterilely cleansed and draped. 1 percent lidocaine was used as local anesthetic. A 20 gauge needle was used. Lumbar puncture was performed at the interlaminar space at L4. 19 cc of clear colorless CSF were obtained. The patient tolerated the procedure well and there were no complications. Total fluoro time 2.6 min. Total dose 158.713 mGy FINDINGS: As above IMPRESSION: Successful lumbar puncture
[2018-05-02 17:32] LABS: CSF VOLUME 4 mL (0-1)
[2018-05-02 17:33] LABS: CSF APPEARANCE CLEAR/COLORLESS (CLEAR)
[2018-05-02 17:36] LABS: CSF MONO/MACROPHAGE 5 % (0-0)
[2018-05-02 22:55] VITALS: TEMP 98
[2018-05-03 01:31] LABS: SPECIMEN SOURCE FLUID
[2018-05-03] MEDS: cefTRIAXone 2 GM IN NS 2 GM/100 ML BAG IVPB SCH (06:14)
[2018-05-03] MEDS: Vancomycin 1.5 GM in Sodium Chloride 0.9% 500 ML IVPB SCH (10:14)
[2018-05-03] MEDS: Sodium Chloride 0.9% 1,000 ML IV SCH (10:17)
--- NOTE | 2018-05-03 10:34 | CP.PCM.PN ---
<Juan Conroy - Last Filed: 05/03/18 17:24> Subjective - Date & Time of Evaluation Date of Evaluation: 05/03/18 Time of Evaluation: 06:00 - Subjective Subjective: Patient seen and evaluated bedside. No acute issues overnight. Patient states she feels better and wants to go home. Objective - Vital Signs/Intake and Output Vital Signs (last 24 hours): Temp Pulse Resp BP Pulse Ox 98 F 64 16 112/72 97 05/03/18 06:00 05/03/18 06:00 05/03/18 06:00 05/03/18 06:00 05/03/18 06:00 Intake and Output: 05/03/18 05/03/18 06:59 18:59 Intake Total 180 Output Total 1 Balance 179 - Medications Medications: Current Medications Acetaminophen (Tylenol 325mg Tab) 650 mg PO Q6H PRN PRN Reason: Pain, moderate (4-7) Last Admin: 05/02/18 04:48 Dose: 650 mg Sodium Chloride (Sodium Chloride 0.9%) 1,000 mls @ 100 mls/hr IV .Q10H MARLON Last Admin: 05/03/18 10:17 Dose: 100 mls/hr Ceftriaxone Sodium (Rocephin 2 Gm Ivpb) 2 gm in 100 mls @ 100 mls/hr IVPB Q12H MARLON; Protocol Stop: 05/08/18 06:01 Last Admin: 05/03/18 06:14 Dose: 100 mls/hr Vancomycin HCl 1.5 gm/ Sodium (Chloride) 500 mls @ 167 mls/hr IVPB Q12H MARLON; Protocol Stop: 05/10/18 10:01 Last Admin: 05/03/18 10:14 Dose: 167 mls/hr Acyclovir 750 mg/ Sodium (Chloride) 100 mls @ 100 mls/hr IV Q8 MARLON; Protocol Stop: 05/08/18 06:01 Last Admin: 05/03/18 06:10 Dose: 100 mls/hr Methimazole (Tapazole) 20 mg PO BID MARLON Last Admin: 05/03/18 10:16 Dose: 20 mg Metoclopramide HCl (Reglan) 5 mg IVP Q6 PRN PRN Reason: Nausea/Vomiting - Labs Labs: 05/02/18 06:50 05/02/18 06:50 PT 12.9 SECONDS (9.4-12.5) H 04/30/18 19:00 INR 1.16 04/30/18 19:00 APTT 45.7 Seconds (26.9-38.3) H 04/30/18 19:00 - Constitutional Appears: Non-toxic, No Acute Distress - Head Exam Head Exam: ATRAUMATIC, NORMAL INSPECTION, NORMOCEPHALIC - Eye Exam Eye Exam: EOMI, Normal appearance - ENT Exam ENT Exam: Mucous Membranes Moist - Extremities Exam Extremities Exam: Full ROM - Neurological Exam Neurological Exam: Alert, Awake, Normal Gait, Oriented x3 Neuro motor strength exam: Left Upper Extremity: 5, Right Upper Extremity: 5, Left Lower Extremity: 5, Right Lower Extremity: 5 Assessment and Plan - Assessment and Plan (Free Text) Plan: 1. Headache secondary to aseptic Meningitis - Currently Afebrile, Droplet precautions - CT head showing sinusitis, edema - Brain MRI without and without contrast pending - LP shows likely viral etiology with increased lymphocytes, normal glucose and cell count - Acyclovir 500mg Q8H IV - Rocephin - Vanco - f/u cultures - continue to monitor mental status <Byron Maxwell - Last Filed: 05/04/18 16:34> Objective - Vital Signs/Intake and Output Vital Signs (last 24 hours): Temp Pulse Resp BP Pulse Ox 98 F 98 H 20 168/80 H 96 05/03/18 06:00 05/03/18 14:00 05/03/18 14:00 05/03/18 14:00 05/03/18 14:00 - Labs Labs: 05/02/18 06:50 05/02/18 06:50 PT 12.9 SECONDS (9.4-12.5) H 04/30/18 19:00 INR 1.16 04/30/18 19:00 APTT 45.7 Seconds (26.9-38.3) H 04/30/18 19:00 Attending/Attestation - Attestation I have personally seen and examined this patient.: Yes I have fully participated in the care of the patient.: Yes I have reviewed all pertinent clinical information, including history, physical exam and plan: Yes Notes (Text): I agree with the assessment and plan. No further recommendations at this time.
[2018-05-03 14:44] VITALS: BP 168/80; PULSE 98; RESP 20; O2SAT 96
--- NOTE | 2018-05-03 15:42 | CP.PCM.PN ---
<Mc Comer - Last Filed: 05/03/18 15:38> Subjective - Date & Time of Evaluation Date of Evaluation: 05/03/18 Time of Evaluation: 07:35 - Subjective Subjective: Mc Comer D.O. 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 Infectious disease consultation was requested for aseptic meningitis. Patient was seen and examined at bedside. Eager to go home. States missing daughter tremendously. Completely asymptomatic. Objective - Vital Signs/Intake and Output Vital Signs (last 24 hours): Temp Pulse Resp BP Pulse Ox 98 F 98 H 20 168/80 H 96 05/03/18 06:00 05/03/18 14:00 05/03/18 14:00 05/03/18 14:00 05/03/18 14:00 Intake and Output: 05/03/18 05/03/18 06:59 18:59 Intake Total 180 Output Total 1 Balance 179 - Medications Medications: Current Medications Acetaminophen (Tylenol 325mg Tab) 650 mg PO Q6H PRN PRN Reason: Pain, moderate (4-7) Last Admin: 05/02/18 04:48 Dose: 650 mg Sodium Chloride (Sodium Chloride 0.9%) 1,000 mls @ 100 mls/hr IV .Q10H MARLON Last Admin: 05/03/18 10:17 Dose: 100 mls/hr Ceftriaxone Sodium (Rocephin 2 Gm Ivpb) 2 gm in 100 mls @ 100 mls/hr IVPB Q12H MARLON; Protocol Stop: 05/08/18 06:01 Last Admin: 05/03/18 06:14 Dose: 100 mls/hr Vancomycin HCl 1.5 gm/ Sodium (Chloride) 500 mls @ 167 mls/hr IVPB Q12H MARLON; Protocol Stop: 05/10/18 10:01 Last Admin: 05/03/18 10:14 Dose: 167 mls/hr Acyclovir 750 mg/ Sodium (Chloride) 100 mls @ 100 mls/hr IV Q8 MARLON; Protocol Stop: 05/08/18 06:01 Last Admin: 05/03/18 13:37 Dose: 100 mls/hr Methimazole (Tapazole) 20 mg PO BID [facility] Last Admin: 05/03/18 10:16 Dose: 20 mg Metoclopramide HCl (Reglan) 5 mg IVP Q6 PRN PRN Reason: Nausea/Vomiting - Labs Labs: 05/02/18 06:50 05/02/18 06:50 PT 12.9 SECONDS (9.4-12.5) H 04/30/18 19:00 INR 1.16 04/30/18 19:00 APTT 45.7 Seconds (26.9-38.3) H 04/30/18 19:00 - Constitutional Appears: Non-toxic, No Acute Distress - Head Exam Head Exam: NORMOCEPHALIC - Eye Exam Eye Exam: absent: Scleral icterus - Neck Exam Additional comments: soft, supple - Respiratory Exam Respiratory Exam: Clear to Auscultation Bilateral. absent: Rales, Rhonchi, Wheezes - Cardiovascular Exam Cardiovascular Exam: +S1, +S2 - GI/Abdominal Exam GI & Abdominal Exam: Normal Bowel Sounds, Soft. 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 Infectious disease consultation was requested for aseptic meningitis. 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), 2/2 HSV II Hyperthyroidism Continues to be afebrile with no leukocytosis HIV negative Flu negative BCx negative 2/2 day 2 UCx negative LP lymphocyte predominant leukocytosis and HSV II IgG elevated Once culture of CSF comes back negative patient can be D/C home with follow up and 14 day course of acyclovir Continue acyclovir/ceftriaxone/vancomycin day 3 We will follow with you Patient was seen and examined and case to be discussed with attending physician Thank you for the pleasure of participating in the care of this interesting patient <Demario Avila - Last Filed: 05/03/18 23:40> Objective - Vital Signs/Intake and Output Vital Signs (last 24 hours): Temp Pulse Resp BP Pulse Ox 98 F 98 H 20 168/80 H 96 05/03/18 06:00 05/03/18 14:00 05/03/18 14:00 05/03/18 14:00 05/03/18 14:00 - Labs Labs: 05/02/18 06:50 05/02/18 06:50 PT 12.9 SECONDS (9.4-12.5) H 04/30/18 19:00 INR 1.16 04/30/18 19:00 APTT 45.7 Seconds (26.9-38.3) H 04/30/18 19:00 Assessment and Plan - Assessment and Plan (Free Text) Plan: Infectious Diseases Attending Physician Attestation Patient seen and examined at bedside, discussed with medical lab technologist. I have reviewed the HPI, ROS, physical examination findings. I have also reviewed the pertinent labs and diagnostic imaging. I have fully participiated in the care of this patient. I agree with the above findings, assessment, plan.
--- NOTE | 2018-05-03 19:46 | CP.PCM.DIS ---
<Vitaly Mora - Last Filed: 05/03/18 19:26> Provider - Provider Date of Admission: 04/30/18 23:50 Attending physician: Noemy Marte MD Consults: 04/30/18 23:00 Neurology Consult Routine Comment: fever/back pain, history of menegitis Consulting Provider: Byron Maxwell Consulting Physician: Byron Maxwell Reason for Consult: fever/back pain, history of menegitis 05/01/18 05:37 Infectious Disease Consult Routine Comment: Consulting Provider: Demario Avila Consulting Physician: Demario Avila Reason for Consult: viral meningitis Time Spent in preparation of Discharge (in minutes): 35 Hospital Course - Lab Results Lab Results: Micro Results 05/02/18 15:30 Cerebral Spinal Fluid Gram Stain - Final 05/02/18 15:30 Cerebral Spinal Fluid CSF Culture - Preliminary NO GROWTH AFTER 24 HOURS 04/30/18 23:40 Blood-Venous Blood Culture - Preliminary NO GROWTH AFTER 48 HOURS 04/30/18 23:06 Blood-Venous Blood Culture - Preliminary NO GROWTH AFTER 48 HOURS 05/01/18 12:15 Urine Random Urine Culture - Final No Growth (<1,000 CFU/ML) Most Recent Lab Values WBC 7.3 10^3/uL (4.5-11.0) 05/02/18 06:50 RBC 4.69 10^6/uL (3.5-6.1) 05/02/18 06:50 Hgb 11.2 g/dL (12.0-16.0) L 05/02/18 06:50 Hct 34.8 % (36.0-48.0) L 05/02/18 06:50 MCV 74.2 fl (80.0-105.0) L 05/02/18 06:50 MCH 23.9 pg (25.0-35.0) L 05/02/18 06:50 MCHC 32.2 g/dl (31.0-37.0) 05/02/18 06:50 RDW 12.5 % (11.5-14.5) 05/02/18 06:50 Plt Count 221 10^3/uL (120.0-450.0) 05/02/18 06:50 MPV 9.0 fl (7.0-11.0) 05/02/18 06:50 Neut % (Auto) 65.1 % (50.0-68.0) 05/02/18 06:50 Lymph % (Auto) 22.2 % (22.0-35.0) 05/02/18 06:50 [place] % (Auto) 11.2 % (1.0-6.0) H 05/02/18 06:50 Eos % (Auto) 1.4 % (1.5-5.0) L 05/02/18 06:50 Baso % (Auto) 0.1 % (0.0-3.0) 05/02/18 06:50 Lymph # (Auto) 1.6 (1.2-3.4) 05/02/18 06:50 [place] # (Auto) 0.8 (0.1-0.6) H 05/02/18 06:50 Eos # (Auto) 0.1 (0.0-0.7) 05/02/18 06:50 Baso # (Auto) 0.01 K/mm3 (0.0-2.0) 05/02/18 06:50 Absolute Neuts (auto) 4.73 (1.4-6.5) 05/02/18 06:50 ESR 45 mm/hr (0.0-20.0) H 05/02/18 06:50 PT 12.9 SECONDS (9.4-12.5) H 04/30/18 19:00 INR 1.16 04/30/18 19:00 APTT 45.7 Seconds (26.9-38.3) H 04/30/18 19:00 Sodium 140 mmol/L (132-148) 05/02/18 06:50 Potassium 3.8 mmol/L (3.6-5.0) 05/02/18 06:50 Chloride 105 mmol/L (98-107) 05/02/18 06:50 Carbon Dioxide 27 mmol/L (21-33) 05/02/18 06:50 Anion Gap 12 (10-20) 05/02/18 06:50 BUN 8 mg/dL (7-21) 05/02/18 06:50 Creatinine 0.3 mg/dl (0.7-1.2) L 05/02/18 06:50 Est GFR ( Amer) > 60 05/02/18 06:50 Est GFR (Non-Af Amer) > 60 05/02/18 06:50 Random Glucose 100 mg/dL (70-110) 05/02/18 06:50 Hemoglobin A1c 5.2 % (4.2-6.5) 05/02/18 06:50 Calcium 9.4 mg/dL (8.4-10.5) 05/02/18 06:50 Phosphorus 5.0 mg/dL (2.5-4.5) H 05/02/18 06:50 Magnesium 1.7 mg/dL (1.7-2.2) 05/02/18 06:50 Total Bilirubin 0.4 mg/dL (0.2-1.3) 05/02/18 06:50 AST 19 U/L (14-36) 05/02/18 06:50 ALT 16 U/L (7-56) 05/02/18 06:50 Alkaline Phosphatase 93 U/L (38-126) 05/02/18 06:50 Total Protein 7.1 g/dL (5.8-8.3) 05/02/18 06:50 Albumin 3.4 g/dL (3.0-4.8) 05/02/18 06:50 Globulin 3.7 gm/dL 05/02/18 06:50 Albumin/Globulin Ratio 0.9 (1.1-1.8) L 05/02/18 06:50 Procalcitonin < 0.05 NG/ML (0.19-0.49) L 05/01/18 05:53 Free T4 4.52 ng/dL (0.78-2.19) H 05/01/18 05:36 Thyroxine (T4) 19.9 ug/dL (5.5-11.0) H 05/02/18 06:50 Free T3 pg/mL 16.90 pg/mL (2.77-5.27) H 05/01/18 08:28 Total T3 2.54 ng/mL (0.97-1.69) H 05/02/18 06:50 TSH 3rd Generation < 0.02 mIU/mL (0.46-4.68) L 05/01/18 05:36 Beta HCG, Quant < 2.39 mIU/mL (0-6.15) 04/30/18 19:00 Urine Color Yellow (YELLOW) 04/30/18 17:15 Urine Appearance Sl cloudy (CLEAR) 04/30/18 17:15 Urine pH 7.5 (4.7-8.0) 04/30/18 17:15 Ur Specific [place] 1.020 (1.005-1.035) 04/30/18 17:15 Urine Protein 30 mg/dL (<30 mg/dL) H 04/30/18 17:15 Urine Glucose (UA) Negative mg/dL (NEGATIVE) 04/30/18 17:15 Urine Ketones Negative mg/dL (NEGATIVE) 04/30/18 17:15 Urine Blood Negative (NEGATIVE) 04/30/18 17:15 Urine Nitrate Negative (NEGATIVE) 04/30/18 17:15 Urine Bilirubin Negative (NEGATIVE) 04/30/18 17:15 Urine Urobilinogen 0.2 E.U./dL (<1 E.U./dL) 04/30/18 17:15 Ur Leukocyte Esterase Negative Jinny/uL (NEGATIVE) 04/30/18 17:15 Urine RBC None /hpf (0-2) 04/30/18 17:15 Urine WBC 1 - 3 /hpf (0-6) 04/30/18 17:15 Ur Epithelial Cells 6 - 8 /hpf (0-5) H 04/30/18 17:15 Urine Bacteria Mod /hpf (NONE) 04/30/18 17:15 Fluid Type Spinal fluid 05/02/18 15:30 CSF Volume 4 mL (0-1) H 05/02/18 15:30 CSF Appearance Clear/colorless (CLEAR) 05/02/18 15:30 CSF WBC 279.0 /uL (0.0-5.0) H 05/02/18 15:30 CSF RBC 3.0 /uL (0.0-0.0) H 05/02/18 15:30 CSF Total Cell Counted 100 (0-0) H 05/02/18 15:30 CSF Neutrophils 1 % (0-0) H 05/02/18 15:30 CSF Lymphocytes 94.0 % (0-0) H 05/02/18 15:30 CSF Monos/Macrophages 5 % (0-0) H 05/02/18 15:30 CSF Comment Colorless 05/02/18 15:30 CSF Glucose 50 mg/dL (40-70) 05/02/18 15:30 CSF Total Protein 38.0 mg/dL (12-60) 05/02/18 15:30 HSV Source Description Fluid 05/02/18 15:30 HSV I IgG Ab <0.90 index 04/30/18 23:50 HSV II IgG >23.00 index H 04/30/18 23:50 HIV 1&2 Ag/Ab, 4th Gen Nonreactive (Nonreactive) 05/01/18 05:53 Influenza Typ A,B (EIA) Negative for flu a/b (NEGATIVE) 04/30/18 17:15 - Hospital Course Hospital Course: Vitaly Mora, PGY1 Discharge Summary for Dr. Marte Patient is a 27 year old female with PMHx aspetic meningitis and hyperthyroidism who presented to the ED on 05/01 for throbbing, non-radiating headache and neck pain that began earlier in the morning. Patient said that the pain felt like the same as her previous episodes of meningitis. She was admitted for Meningitis. Droplet precautions were instituted. LP was attempted in the ED but failed. Patient started on vanco, ceftriaxone, and acyclovir for empiric coverage. Neurology and ID were both placed on consult as well. Head CT showed sinusitis with cerebral edema in consideration. Blood cultures were negative and urine cultures were negative. Patient LP was done successfully via fluoroscopy as per radiology. CSF analysis showed findings consistent with aseptic meningitis. CSF culture was also negative. During hospital course, patient's headache resolved completely. As per neuro, patient is cleared for discharge given the findings. Patient may follow up with MRI brain as outpatient. She will also follow up with Neurologist as outpatient. Patient's thyroid levels were also abnormal during hospital course; she will continue her normal dosage for her methimazole but needs to follow up with PMD in regards to her levels. On discharge, patient will receive acyclovir in regards to new medications. Upon reviewing all vitals, labs, and imaging, patient is hemodynamically stable for discharge. Discharge Exam - Head Exam Head Exam: ATRAUMATIC, NORMAL INSPECTION, NORMOCEPHALIC - Eye Exam Eye Exam: Normal appearance Pupil Exam: NORMAL ACCOMODATION - ENT Exam ENT Exam: Mucous Membranes Moist - Respiratory Exam Respiratory Exam: Clear to PA & Lateral. absent: Rhonchi, Wheezes, Respiratory Distress - Cardiovascular Exam Cardiovascular Exam: RRR, +S1, +S2 - GI/Abdominal Exam GI & Abdominal Exam: Normal Bowel Sounds. absent: Guarding, Rebound, Rigid - Extremities Exam Extremities exam: normal capillary refill, normal inspection, pedal pulses present - Back Exam Back exam: NORMAL INSPECTION - Neurological Exam Neurological exam: Alert, CN II-XII Intact, Normal Gait, Oriented x3, Reflexes Normal - Psychiatric Exam Psychiatric exam: Normal Affect, Normal Mood - Skin Skin Exam: Dry, Intact, Normal Color, Warm Discharge Plan - Discharge Medications Prescriptions: Acyclovir [Zovirax] 400 mg PO TID #42 tab methIMAzole [Tapazole] 10 mg PO BID #56 tab - Follow Up Plan Condition: GUARDED Disposition: HOME/ ROUTINE Instructions: Viral Meningitis, Sepsis, Adult (DC) Additional Instructions: Please follow-up with your PMD, Dr Tanja Scruggs, within 7 days of discharge so he may be aware of this hospital admission. Please follow-up with neurologist, Dr Maxwell, within 14 days of discharge (after having the MRI performed) You will be given a script for acyclovir 400mg, take 1 tablet with breakfast, lunch and dinner for 14 days Your thyroid levels were abnormal. We did not adjust your thyroid medicine as your recently had a dose change. Please follow-up with your PMD regarding this so he/she may do another thyroid lab draw and adjust your thyroid medication accordingly. In the meantime - please continue your home medications of Methimazole 20mg morning and evening. You were given a script for an MRI with and without contrast - our neurologist has recommended you have this MRI done outpatient and follow-up with neurologist, Dr Maxwell, regarding the findings. We recommend you discontinue the percocet for pain control as this can be highly addictive. Other forms of pain control include motrin or tylenol. If symptoms return promptly go to your nearest emergency department. Referrals: Tanja Scruggs MD [Medical Doctor] - Byron Maxwell MD [Staff Provider] - <Noemy Marte - Last Filed: 05/04/18 07:33> Provider - Provider Date of Admission: 04/30/18 23:50 Attending physician: Noemy Marte MD Consults: 04/30/18 23:00 Neurology Consult Routine Comment: fever/back pain, history of menegitis Consulting Provider: Byron Maxwell Consulting Physician: Byron Maxwell Reason for Consult: fever/back pain, history of menegitis 05/01/18 05:37 Infectious Disease Consult Routine Comment: Consulting Provider: Demario Avila Consulting Physician: Demario Avila Reason for Consult: viral meningitis Hospital Course - Lab Results Lab Results: Micro Results 04/30/18 23:40 Blood-Venous Blood Culture - Preliminary NO GROWTH AFTER 3 DAYS 04/30/18 23:06 Blood-Venous Blood Culture - Preliminary NO GROWTH AFTER 3 DAYS 05/02/18 15:30 Cerebral Spinal Fluid Gram Stain - Final 05/02/18 15:30 Cerebral Spinal Fluid CSF Culture - Preliminary NO GROWTH AFTER 24 HOURS 05/01/18 12:15 Urine Random Urine Culture - Final No Growth (<1,000 CFU/ML) Most Recent Lab Values WBC 7.3 10^3/uL (4.5-11.0) 05/02/18 06:50 RBC 4.69 10^6/uL (3.5-6.1) 05/02/18 06:50 Hgb 11.2 g/dL (12.0-16.0) L 05/02/18 06:50 Hct 34.8 % (36.0-48.0) L 05/02/18 06:50 MCV 74.2 fl (80.0-105.0) L 05/02/18 06:50 MCH 23.9 pg (25.0-35.0) L 05/02/18 06:50 MCHC 32.2 g/dl (31.0-37.0) 05/02/18 06:50 RDW 12.5 % (11.5-14.5) 05/02/18 06:50 Plt Count 221 10^3/uL (120.0-450.0) 05/02/18 06:50 MPV 9.0 fl (7.0-11.0) 05/02/18 06:50 Neut % (Auto) 65.1 % (50.0-68.0) 05/02/18 06:50 Lymph % (Auto) 22.2 % (22.0-35.0) 05/02/18 06:50 Clayton % (Auto) 11.2 % (1.0-6.0) H 05/02/18 06:50 Eos % (Auto) 1.4 % (1.5-5.0) L 05/02/18 06:50 Baso % (Auto) 0.1 % (0.0-3.0) 05/02/18 06:50 Lymph # (Auto) 1.6 (1.2-3.4) 05/02/18 06:50 [place] # (Auto) 0.8 (0.1-0.6) H 05/02/18 06:50 Eos # (Auto) 0.1 (0.0-0.7) 05/02/18 06:50 Baso # (Auto) 0.01 K/mm3 (0.0-2.0) 05/02/18 06:50 Absolute Neuts (auto) 4.73 (1.4-6.5) 05/02/18 06:50 ESR 45 mm/hr (0.0-20.0) H 05/02/18 06:50 PT 12.9 SECONDS (9.4-12.5) H 04/30/18 19:00 INR 1.16 04/30/18 19:00 APTT 45.7 Seconds (26.9-38.3) H 04/30/18 19:00 Sodium 140 mmol/L (132-148) 05/02/18 06:50 Potassium 3.8 mmol/L (3.6-5.0) 05/02/18 06:50 Chloride 105 mmol/L (98-107) 05/02/18 06:50 Carbon Dioxide 27 mmol/L (21-33) 05/02/18 06:50 Anion Gap 12 (10-20) 05/02/18 06:50 BUN 8 mg/dL (7-21) 05/02/18 06:50 Creatinine 0.3 mg/dl (0.7-1.2) L 05/02/18 06:50 Est GFR ( Amer) > 60 05/02/18 06:50 Est GFR (Non-Af Amer) > 60 05/02/18 06:50 Random Glucose 100 mg/dL (70-110) 05/02/18 06:50 Hemoglobin A1c 5.2 % (4.2-6.5) 05/02/18 06:50 Calcium 9.4 mg/dL (8.4-10.5) 05/02/18 06:50 Phosphorus 5.0 mg/dL (2.5-4.5) H 05/02/18 06:50 Magnesium 1.7 mg/dL (1.7-2.2) 05/02/18 06:50 Total Bilirubin 0.4 mg/dL (0.2-1.3) 05/02/18 06:50 AST 19 U/L (14-36) 05/02/18 06:50 ALT 16 U/L (7-56) 05/02/18 06:50 Alkaline Phosphatase 93 U/L (38-126) 05/02/18 06:50 Total Protein 7.1 g/dL (5.8-8.3) 05/02/18 06:50 Albumin 3.4 g/dL (3.0-4.8) 05/02/18 06:50 Globulin 3.7 gm/dL 05/02/18 06:50 Albumin/Globulin Ratio 0.9 (1.1-1.8) L 05/02/18 06:50 Procalcitonin < 0.05 NG/ML (0.19-0.49) L 05/01/18 05:53 Free T4 4.52 ng/dL (0.78-2.19) H 05/01/18 05:36 Thyroxine (T4) 19.9 ug/dL (5.5-11.0) H 05/02/18 06:50 Free T3 pg/mL 16.90 pg/mL (2.77-5.27) H 05/01/18 08:28 Total T3 2.54 ng/mL (0.97-1.69) H 05/02/18 06:50 TSH 3rd Generation < 0.02 mIU/mL (0.46-4.68) L 05/01/18 05:36 Beta HCG, Quant < 2.39 mIU/mL (0-6.15) 04/30/18 19:00 Urine Color Yellow (YELLOW) 04/30/18 17:15 Urine Appearance Sl cloudy (CLEAR) 04/30/18 17:15 Urine pH 7.5 (4.7-8.0) 04/30/18 17:15 Ur Specific [place] 1.020 (1.005-1.035) 04/30/18 17:15 Urine Protein 30 mg/dL (<30 mg/dL) H 04/30/18 17:15 Urine Glucose (UA) Negative mg/dL (NEGATIVE) 04/30/18 17:15 Urine Ketones Negative mg/dL (NEGATIVE) 04/30/18 17:15 Urine Blood Negative (NEGATIVE) 04/30/18 17:15 Urine Nitrate Negative (NEGATIVE) 04/30/18 17:15 Urine Bilirubin Negative (NEGATIVE) 04/30/18 17:15 Urine Urobilinogen 0.2 E.U./dL (<1 E.U./dL) 04/30/18 17:15 Ur Leukocyte Esterase Negative Jinny/uL (NEGATIVE) 04/30/18 17:15 Urine RBC None /hpf (0-2) 04/30/18 17:15 Urine WBC 1 - 3 /hpf (0-6) 04/30/18 17:15 Ur Epithelial Cells 6 - 8 /hpf (0-5) H 04/30/18 17:15 Urine Bacteria Mod /hpf (NONE) 04/30/18 17:15 Fluid Type Spinal fluid 05/02/18 15:30 CSF Volume 4 mL (0-1) H 05/02/18 15:30 CSF Appearance Clear/colorless (CLEAR) 05/02/18 15:30 CSF WBC 279.0 /uL (0.0-5.0) H 05/02/18 15:30 CSF RBC 3.0 /uL (0.0-0.0) H 05/02/18 15:30 CSF Total Cell Counted 100 (0-0) H 05/02/18 15:30 CSF Neutrophils 1 % (0-0) H 05/02/18 15:30 CSF Lymphocytes 94.0 % (0-0) H 05/02/18 15:30 CSF Monos/Macrophages 5 % (0-0) H 05/02/18 15:30 CSF Comment Colorless 05/02/18 15:30 CSF Glucose 50 mg/dL (40-70) 05/02/18 15:30 CSF Total Protein 38.0 mg/dL (12-60) 05/02/18 15:30 HSV Source Description Fluid 05/02/18 15:30 HSV I IgG Ab <0.90 index 04/30/18 23:50 HSV II IgG >23.00 index H 04/30/18 23:50 HIV 1&2 Ag/Ab, 4th Gen Nonreactive (Nonreactive) 05/01/18 05:53 Influenza Typ A,B (EIA) Negative for flu a/b (NEGATIVE) 04/30/18 17:15 Attending/Attestation - Attestation I have personally seen and examined this patient.: Yes I have fully participated in the care of the patient.: Yes I have reviewed all pertinent clinical information, including history, physical exam and plan: Yes Notes (Text): 05/03/18 27 year old female with past medical history of meningitis who presented with complaint of headache secondary to suspected recurrent meningitis. S/p failed attempt of LP in ER but was able to have fluoroscopic LP yesterday. Patient was vancomycin, ceftriaxone and acyclovir being followed by ID and neurology. Patient's symptoms improved. Cultures were negative. Patient did not want to wait for MRI brain and was cleared by neurology for discharge with outpatient MRI. Patient is on methimazole for hyperthyroidism. Counselled on medication compliance. Patient is discharged home to follow up with pmd. Follow up with neurology. Outpatient MRI. Continue with acyclovir x 14 days. Noemy Marte MD Hospitalist.
== END 2018-05-03 18:44 | disposition home or self-care (01) | DRG 888 ==
LOC: ED 17:56 → ERH 23:26 → OBSVTOIN 23:50 → ERH 05-01 00:21 → 5RSO 05-01 00:59
PROVIDERS: ADMIT Internal Medicine; ATTEND Internal Medicine
DX: G03.0 Nonpyogenic meningitis (principal); E05.90 Thyrotoxicosis, unspecified without thyrotoxic crisis or storm; G93.6 Cerebral edema; J32.0 Chronic maxillary sinusitis; Z86.61 Personal history of infections of the central nervous system; Z88.6 Allergy status to analgesic agent; Z98.891 History of uterine scar from previous surgery; Z87.892 Personal history of anaphylaxis